=== PATIENT | male | born 1940 | race Caucasian/White ===

== ENCOUNTER → 2020-08-09 09:59 | Outpatient (CLI) | payer OTHER, SELFPAY ==
[2020-08-09 11:02] LABS: COVID19 -Nasal RAPID Negative (Negative)
== END ==
PROVIDERS: Referring Provider Internal Medicine; Visit Provider Internal Medicine
DX: Z20.822 Contact with and (suspected) exposure to COVID-19 (principal)
CPT/HCPCS: 87635; C9803

== ENCOUNTER → 2020-08-10 12:48 | Outpatient (CLI) | payer OTHER, SELFPAY ==
--- NOTE | 2020-08-18 11:47 | PM.PFT.1 ---
Pulmonary Function Test Referral & Results Date Patient Seen: 08/10/20 Requesting provider: Mansoor Flowers Results: The spirometry demonstrates an FVC of 4.05 L which is 93% of predicted. The FEV1 was measured at 3.07 L which is 99% of predicted. The FEV1/FVC ratio was 76 which is 106% of predicted. No bronchodilator was administered No lung volumes were performed The diffusing capacity was measured at 23.81 which is 67% of predicted. No hemoglobin value was provided, so no correction for potential anemia could be made, if appropriate. Interpretation: This study demonstrates normal spirometry but mildly reduced diffusing capacity suggesting amount of disease of the capillary alveolar level Clinical correlation suggested
== END ==
PROVIDERS: PCP Internal Medicine; Referring Provider Internal Medicine Cardiovascular Disease; Visit Provider Internal Medicine Cardiovascular Disease
DX: I48.21 Permanent atrial fibrillation (principal); I42.8 Other cardiomyopathies; Z51.81 Encounter for therapeutic drug level monitoring; Z79.899 Other long term (current) drug therapy
CPT/HCPCS: 94010

== ENCOUNTER 2020-12-06 18:18 | Emergency (ER) | payer OTHER, SELFPAY ==
[2020-12-06 18:14] VITALS: BP 134/81; PULSE 67; RESP 14; TEMP 36.7; O2SAT 99; BMI 24.5
--- NOTE | 2020-12-06 18:25 | ED.FALL ---
HPI - Fall General Chief Complaint: Fall Stated Complaint: GLF Time Seen by Provider: 12/06/20 18:19 Source: patient Mode of arrival: EMS Limitations: no limitations History of Present Illness HPI Narrative: Patient is an 80-year-old male who was brought in by EMS for evaluation of injuries that he sustained after tripping over his cane while on the sidewalk in falling forward and hitting his head. There was no loss of consciousness. He is on Coumadin. Patient states that bystanders would not allow him to get up and try to walk afterwards. You arrive not on a backboard on a cervical collar but is not complaining of any neck pain. He also states he sustained abrasions to his right knee. Related Data Allergies Allergy/AdvReac Type Severity Reaction Status Date / Time No Known Drug Allergies Allergy Verified 12/06/20 18:19 Review of Systems Constitutional Constitutional: Denies headache(s) Eyes Eyes: Denies change in vision ENT Ears, Nose, Mouth, and Throat: Denies vertigo, Denies dizziness and Denies headache(s) Comments: No dental pain, no nose bleed Cardiovascular Cardiovascular: Reports system reviewed and no additional complaints, except as documented and Denies chest pain Respiratory Respiratory: Reports system reviewed and no additional complaints, except as documented Gastrointestinal Gastrointestinal: Reports system reviewed and no additional complaints, except as documented Musculoskeletal Comments: Abrasions to the right knee otherwise no other musculoskeletal complaints Integumentary/Breasts Comments: Abrasions to his face in the right knee Neurologic Neurologic: Denies confusion, Denies vertigo, Denies dizziness and Denies headache(s) Psychiatric Psychiatric: Reports system reviewed and no additional complaints, except as documented and Denies confusion Hematologic/Lymphatic On Anticoagulants: Yes Allergic/Immunologic Allergic/Immunologic: Reports system reviewed and no additional complaints, except as documented Patient History Medical History Anticoagulated Social History Smoking Status: Unknown if ever smoked Smoking Status: Unknown if ever smoked alcohol intake frequency: holidays/special occasions only Substance Use Type: does not use Exam Initial Vital Signs Initial Vital Signs: Vital Signs Temperature 98.1 F 12/06/20 18:14 Pulse Rate 67 12/06/20 18:14 Respiratory Rate 14 12/06/20 18:14 Blood Pressure 134/81 12/06/20 18:14 Pulse Oximetry 99 12/06/20 18:14 Const General: cooperative, comfortable, well developed and well groomed Limitations: mental status not altered HENMT Head: abrasion (2 forehead and over bridge of nose) Ears: hearing grossly normal bilaterally Nose: septum normal, No epistaxis and No nasal discharge Face and sinus: other (Abrasion over bridge of nose) Mouth: oral mucosae normal and tongue normal Teeth and gingiva: dentition normal Eyes General: appearance normal, both eyes and all related structures Chest Chest: No tenderness Resp Effort & Inspection: normal respiratory effort Auscultation: clear to auscultation bilaterally Cardio Rate: regular rate Rhythm: regular rhythm GI Inspection: non-distended Palpation: soft, No firm and No tender Back/Spine/Pelvis Cervical Spine: No collar present and No cervical spinal tenderness Thoracic/Lumbar Spine: No thoracic spinal tenderness and No lumbar spinal tenderness Skin Other: Patient with a superficial 2 cm abrasion over the right patella. Patient also has an abrasion over his forehead, above his eyes and over the bridge of his nose. There is no active bleeding. Neuro General: patient alert, patient awake and patient oriented x3 Cognition: normal cognition Speech: speech normal Extrem General: normal to inspection, capillary refill normal and No edema Psych Appearance: grossly normal and well kempt Procedures Laceration Repair Laceration 1: Site: other (Does) Size (cm): 2 Description: linear Depth: simple, single layer Local Anesthetic: lidocaine 1% and with bicarb Amount of anesthesia used (mL): 2 Pre-repair: wound explored and deep structures intact Skin layer closed with: other (Chromic) Size (cm): 5-0 Number of sutures: 4 Technique: simple, interrupted Scores GCS Waterman coma scale eye opening: Spontaneous Romeo coma scale verbal response: Orientated Romeo coma scale motor response: Obey commands Waterman coma scale total score: 15 Nexus Score for C-Spine Focal Neurologic deficit present: No Midline spinal tenderness present: No Altered level of conciousness present: No Intoxication present: No Distracting Injury Present: No Nexus Criteria for C-spine: 0 Course Orders Ordered: ED Orders 12/06/20 18:24 CT facial bones wo con Stat CT head/brain wo con Stat Discontinued Medications Bacitracin (Bacitracin Oint 0.9 Gm Pckt) 2 applic TOP NOW ONE Stop: 12/06/20 19:15 Lidocaine/Sodium Bicarbonate (Lido 1%/Sod Bicarb 8.4% (10ml) 10 Ml Syringe) 10 ml INJ NOW ONE Stop: 12/06/20 19:05 Last Admin: 12/06/20 19:09 Dose: 10 ml Documented by: Vital Signs Vital signs: Vital Signs - 8 hr 12/06/20 18:14 Temperature 98.1 F Pulse Rate 67 Respiratory Rate 14 Blood Pressure 134/81 Pulse Oximetry 99 MDM - Fall Imaging Data CT scan - head: Radiologist's Impression: [address] [id number] Scan ReportSigned Patient: Shane Beal CMR#: [id number]: 9Acct:[id number]/Sex: 80 / MDate of Service: 12/06/20Loc: EDAccession Number: [id number] Procedure: CT head/brain wo con Ordering Provider: Pola Allison D.O. PROCEDURE: CT HEAD/BRAIN WO CON INDICATIONS: fall on Coumadin TECHNIQUE: Noncontrast 4.5 mm thick angled axial sections acquired from the foramen magnum to the vertex, with coronal and sagittal reformats. For radiation dose reduction, the following was used: automated exposure control, adjustment of mA and/or kV according to patient size. COMPARISON: None. FINDINGS: Image quality: Excellent. CSF spaces: Basal cisterns are patent. No extra-axial fluid collections. The ventricles are symmetric in size and shape. Brain: No intracranial bleeds or masses. There is cerebral volume loss for age, with resultant ventricular and sulcal prominence. There are periventricular and deep white matter chronic small vessel ischemic changes. There is intracranial internal carotid artery atherosclerosis. Skull and face: Calvarium and visualized facial bones appear intact, without suspicious lesions. Sinuses: Visualized sinuses and mastoids are clear. IMPRESSION: Atrophy and chronic ischemic change without acute hemorrhage or mass effect. Dictated by: Stuart Muñoz M.D. on 12/06/2020 at 17:42 Approved by: Stuart Muñoz M.D. on 12/06/2020 at 17:44 CT face: Radiologist's Impression: [address] [id number] Scan ReportSigned Patient: Shane Beal CMR#: [id number]: 9Acct:[id number]/Sex: 80 / MDate of Service: 12/06/20Loc: EDAccession Number: [id number] Procedure: CT facial bones wo con Ordering Provider: Pola Allison D.O. PROCEDURE: CT FACIAL BONES WO CON INDICATIONS: Fall on Coumadin with abrasions over nose TECHNIQUE: Noncontrast 2.5 mm thick axial images acquired from the mandible through the frontal sinuses, with coronal and sagittal reformatting. For radiation dose reduction, the following was used: automated exposure control, adjustment of mA and/or kV according to patient size. COMPARISON: None. FINDINGS: Image quality: Excellent. Bones and teeth: Minimal angulation of the nasal bone could reflect nondisplaced fracture. Overlying soft tissue swelling noted. Orbital ann are intact. Sinus ann show no fracture or deformity. Nasal bones and septum are intact. Visualized portions of the mandible demonstrate no fractures or subluxation. Zygomatic arches are intact. Pterygoid plates are intact. Visualized portions of the skull base and auditory canals are intact. Sinuses: Paranasal sinuses are aerated, without fluid levels, mucosal thickening, or mucoceles. Mastoid air cells are aerated. Small 5 mm right maxillary sinus retention cysts noted. Soft tissues: No edema, masses, or fluid collections. No enlarged lymph nodes. No soft tissue lacerations or debris. And multifocal dermal calcifications over the chin could reflect foreign bodies Vascular: Visualized vascular structures appear normal in the absence of contrast. Bony vascular foramina and canals are intact. IMPRESSION: 1. Minimal angulation of the knees above could reflect nondisplaced fracture 2. Dermal calcifications over the chin. Correlate for foreign bodies Dictated by: Stuart Muñoz M.D. on 12/06/2020 at 17:46 Approved by: Stuart Muñoz M.D. on 12/06/2020 at 17:53 MDM Narrative Medical decision making narrative: Has did appear to be a mechanical fall. His neck was cleared by nexus criteria. He was alert oriented x3 and had a GCS of 15 and not clinically intoxicated. The superficial abrasion over his knee needs no intervention. The abrasions on his forehead knee no intervention. After cleaning of the wounds there was a small laceration over the bridge of his nose which was closed as described above. His head CT was unremarkable. Facial CT does have some concern about a nasal fracture. I did discuss this with the patient. He was given care instructions and return precautions. He expressed understanding and agreement. Discharge Plan Departure Patient Disposition: Home Clinical Impression: Abrasion of forehead, Laceration of nose, Abrasion of knee, right Instructions: How to Prevent Falls, DI for Abrasion Activity Restrictions/Additional Instructions: The stitches that were placed today will come out on their own. You can place topical antibiotic ointment over the abrasions. You have no restrictions on your activities. Contact your primary provider for follow-up. Return to the emergency department for any new or worsening symptoms. Referrals: Lindsay Chavarria MD [Primary Care Provider] -
--- NOTE | 2020-12-06 18:49 | PC.NURSE ---
Wound cleansed with normal saline. Pt reports no pain. Bleeding controled. Laceration to bridge of the nose and abrasion to forehead.
[2020-12-06] MEDS: LIDO 1%/SOD BICARB 8.4% (10ML) 10 ML SYRINGE INJ (19:09)
[2020-12-06] MEDS: BACITRACIN OINT 0.9 GM PCKT 2 APPLIC TOP (19:23)
[2020-12-06 19:35] VITALS: BP 108/65; PULSE 61; RESP 16; TEMP 36.5; O2SAT 100
== END 2020-12-06 19:36 | disposition home or self-care (01) ==
PROVIDERS: Emergency Provider Emergency Medicine; PCP Internal Medicine
DX: S01.21XA Laceration without foreign body of nose, initial encounter (principal); S80.211A Abrasion, right knee, initial encounter; S00.81XA Abrasion of other part of head, initial encounter; W19.XXXA Unspecified fall, initial encounter; Z79.01 Long term (current) use of anticoagulants
CPT/HCPCS: 12011; 70450; 70486; 99284

== ENCOUNTER → 2021-05-21 15:13 | Outpatient (CLI) | payer OTHER, SELFPAY ==
[2021-05-21 15:58] LABS: INR 12.6 (0.9-1.3)
== END ==
PROVIDERS: PCP Internal Medicine; Referring Provider Internal Medicine; Visit Provider Internal Medicine
DX: I48.19 Other persistent atrial fibrillation (principal)
CPT/HCPCS: 36415; 85610

== ENCOUNTER 2021-05-21 18:29 | Emergency (ER) | payer OTHER, SELFPAY ==
[2021-05-21 18:41] VITALS: BP 105/68; PULSE 68; RESP 16; TEMP 36.9; O2SAT 98; BMI 24.3
[2021-05-21 19:17] LABS: Add Manual Diff / Slide Review NO; Basophils Absolute Auto 100 /uL (0-100); Basophils Percent Auto 1.7 % (0-2); Eosinophils Absolute Auto 100 /uL (0-450); Eosinophils Percent Auto 1.1 % (2-4); Hematocrit 42.3 % (41-53); Hemoglobin 14.4 g/dL (13.5-17.5); Lymphocytes Absolute Auto 1500 /uL (1100-4500); Lymphocytes Percent Auto 27.2 % (25-40); Mean Corpuscular Hemoglobin 31.9 PG (26-34); Mean Corpuscular Volume 93.9 fL (80-100); Monocytes Absolute Auto 600 /uL (0-900); Neutrophils Absolute Auto 3400 /uL (1500-7000); Platelet Count 167 X10^3/uL (150-400); Red Cell Distribution Width 14.5 % (11.6-14.8); White Blood Cell Count 5.6 X10^3/uL (4.5-11.0)
[2021-05-21 19:22] LABS: Prothrombin Time 145.7 SECONDS (10.1-12.7)
[2021-05-21 19:25] LABS: Alanine Aminotransferase 124 IU/L (<50); Albumin 4.5 g/dL (3.5-5.0); Albumin Globulin Ratio 1.4 (1.0-2.8); Alkaline Phosphatase 60 U/L (38-126); Aspartate Aminotransferase 83 IU/L (17-59); BUN Creatinine Ratio 24.1 (6-22); Bilirubin Total 0.8 mg/dL (0.2-1.3); Blood Urea Nitrogen 27 mg/dL (9-20); Calcium 10.1 mg/dL (8.4-10.2); Carbon Dioxide 28 mmol/L (22-32); Chloride 98 mmol/L (98-107); Estimated Glomerular Filt Rate > 60.0 mL/min (>60); Globulin 3.3 g/dL (1.7-4.1); Glucose 88 mg/dL (80-110); HEMOLYSIS 26 (0-50); Potassium 4.3 mmol/L (3.4-5.1); Sodium 137 mmol/L (137-145); Total Protein 7.8 g/dL (6.3-8.2)
[2021-05-21 19:30] VITALS: BP 99/30; PULSE 60; RESP 17; O2SAT 99
--- NOTE | 2021-05-21 19:33 | ED_ITS ---
HPI - Recheck/Abnormal Lab/Rx General Chief Complaint: Recheck/Abnormal Lab/Rx Stated Complaint: states INR is too high Time Seen by Provider: 05/21/21 19:30 Source: patient and family Mode of arrival: Ambulatory History of Present Illness HPI narrative: Patient is an 80-year-old male history of atrial fibrillation, coronary artery disease, diabetes presenting today with elevated INR. Apparently as an outpatient it was 12. He is noted to be hypotensive here with blood pressure low 100s he states that his blood pressure is normally in the low 100s and systolic 90s. He denies any dizziness lightheadedness. He has chest pain shortness of breath he has not passed out he has no black tarry stools or rectal bleeding. Overall feels well most concerned for elevated INR. 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 Related Data Home Medications Medication Instructions Recorded Confirmed amiodarone 200 mg tablet mg 05/21/21 atorvastatin 40 mg tablet mg 05/21/21 bumetanide 1 mg tablet mg 05/21/21 empagliflozin 25 mg tablet mg 05/21/21 (Jardiance) finasteride 5 mg tablet mg 05/21/21 latanoprost 0.005 % eye drops drp 05/21/21 metformin 500 mg tablet,extended mg PO 05/21/21 release 24 hr spironolactone 25 mg tablet mg 05/21/21 tamsulosin 0.4 mg capsule mg PO 05/21/21 warfarin 5 mg tablet See Rx Instructions .ROUTE .COMPLEX 05/21/21 05/21/21 warfarin 5 mg tablet mg 05/21/21 Allergies Allergy/AdvReac Type Severity Reaction Status Date / Time No Known Drug Allergies Allergy Verified 05/21/21 18:44 Review of Systems Review of Systems Narrative: GENERAL: Denies chills, fatigue, malaise, fever, sweats, travel HEENT: Denies sinus pain, ear pain, sore throat, difficulty swallowing, neck pain RESPIRATORY: Denies dyspnea, cough, wheezing, hemoptysis, sputum. CARDIOVASCULAR: Denies chest pain, palpitations, orthopnea, edema GASTROINTESTINAL: Denies nausea, vomiting, abdominal pain, diarrhea, co nstipation, melena. : Denies dysuria, frequency, incontinence, hematuria, urinary retention, flank pain. MUSCULOSKELETAL: Denies weakness, joint pain, or bony pain SKIN: No rash, no erythema, no pruritus NEUROLOGIC: Denies weakness, dizziness, headache, numbness, change in speech, confusion PSYCHIATRIC: No concerning psychosocial issues. 12 point review of systems is negative except for those stated above and HPI Patient History Medical History (Updated 05/21/21 @ 20:51 by Ana Grewal DO) Anticoagulated Atrial fibrillation Coronary artery disease Social History Smoking Status: Unknown if ever smoked Smoking Status: Unknown if ever smoked alcohol intake frequency: holidays/special occasions only Substance Use Type: does not use Exam Initial Vital Signs Initial Vital Signs: Vital Signs Temperature 98.4 F 05/21/21 18:41 Pulse Rate 68 05/21/21 18:41 Respiratory Rate 16 05/21/21 18:41 Blood Pressure 105/68 05/21/21 18:41 Pulse Oximetry 98 05/21/21 18:41 GENERAL: Alert well-appearing 80-year-old maleand in no acute distress. HEENT: Head atraumatic,EOMI, pupils reactive, face symmetric, moist mucous membranes CARDIOVASCULAR: Irregular pacemaker placed RESPIRATORY: Breath sounds equal bilaterally, no wheezes rales or rhonchi. ABDOMEN: Soft, nontender. Normoactive bowel sounds all 4 quadrants. No guarding or rebound. EXTREMITIES: Normal range of motion, no clubbing or edema. Neurovascularly intact NEUROLOGICAL: Alert and oriented x4.Normal gait and speech. SKIN: Warm, dry, no laceration, no petechiae, no rashes or lesions. Course Orders Ordered: Discontinued Medications Phytonadione (Phytonadione (Vit K1) 5 Mg Tablet) 5 mg PO NOW ONE Stop: 05/21/21 19:31 Last Admin: 05/21/21 19:58 Dose: 5 mg Documented by: LIZA Vital Signs Vital signs: Vital Signs - 8 hr 05/21/21 20:38 Pulse Rate 69 Respiratory Rate 16 Blood Pressure 108/77 Pulse Oximetry 98 MDM - Recheck/Abnormal Lab/Rx Lab Data Result diagrams: 05/21/21 18:50 05/21/21 18:50 Labs: Lab Results 05/21/21 05/21/21 05/21/21 Range/Units 18:50 18:50 18:50 WBC 5.6 (4.5-11.0) X10^3/uL RBC 4.50 (4.5-5.9) X10^6/uL Hgb 14.4 (13.5-17.5) g/dL Hct 42.3 (41-53) % MCV 93.9 (80-100) fL MCH 31.9 (26-34) PG MCHC 34.0 (30-36) % RDW 14.5 (11.6-14.8) % Plt Count 167 (150-400) X10^3/uL Neut % (Auto) 60.0 (50-75) % Lymph % (Auto) 27.2 (25-40) % Surry % (Auto) 10.0 (3-14) % Eos % (Auto) 1.1 L (2-4) % Baso % (Auto) 1.7 (0-2) % Neut # (Auto) 3400 (5127-3652) /uL Lymph # (Auto) 1500 (7079-9766) /uL Surry # (Auto) 600 (0-900) /uL Eos # (Auto) 100 (0-450) /uL Baso # (Auto) 100 (0-100) /uL PT 145.7 H D (10.1-12.7) SECONDS INR 12.2 H* (0.9-1.3) APTT 67 H (26.4-36.2) SECONDS Sodium 137 (137-145) mmol/L Potassium 4.3 (3.4-5.1) mmol/L Chloride 98 (98-107) mmol/L Carbon Dioxide 28 (22-32) mmol/L BUN 27 H (9-20) mg/dL Creatinine 1.12 (0.66-1.25) mg/dL Estimated GFR > 60.0 (>60) mL/min BUN/Creatinine Ratio 24.1 H (6-22) Glucose 88 (80-110) mg/dL Calcium 10.1 (8.4-10.2) mg/dL Total Bilirubin 0.8 (0.2-1.3) mg/dL AST 83 H (17-59) IU/L ALT 124 H (<50) IU/L Alkaline Phosphatase 60 (38-126) U/L Total Protein 7.8 (6.3-8.2) g/dL Albumin 4.5 (3.5-5.0) g/dL Globulin 3.3 (1.7-4.1) g/dL Albumin/Globulin Ratio 1.4 (1.0-2.8) ECG Data Interpretation: Atrial fibrillation rate [address] changes paced, no priors MDM Narrative Medical decision making narrative: Patient is found to have significantly elevated INR but no life-threatening bleeding.Blood pressure seems to be at his baseline. He has no palpitations dizziness lightheadedness or presyncopal episodes. At this time I do not see need for his pacemaker to be interrogated. He overall is at his baseline mental status. At this time recommend holding Coumadin he is given 1 dose of vitamin K in the emergency department. Recommend repeating INR in a few days. Discharge Plan Departure Patient Disposition: Home Clinical Impression: Elevated INR Instructions: DI for Warfarin Therapy Activity Restrictions/Additional Instructions: *You have been diagnosed with elevated INR *What to do: DO NOT TAKE COUMADIN FOR AT LEAST 3 DAYS. HE NEED TO HAVE HER INR RECHECKED. HE WERE GIVEN VITAMIN K 5 MG IN THE EMERGENCY DEPARTMENT TODAY. Please take precautions as to not cut herself or injure yourself well your INR is quite elevated. Avoid ladders and shaving and other activities that may be considered high risk *Continue to take medications as directed SEE ABOVE *Follow up with your primary care provider in 2-3 days *Return to ER if you should have any rectal bleeding, head injury, bleeding that does not stop after pressure for 45 minutes, or any new, worsening or concerning symptoms Prescriptions: No Action warfarin 5 mg tablet See Rx Instructions .ROUTE .COMPLEX 0RF Label Comments: 5mg on mon, tue, th, fri, and sat 2.5mg on sun and wed Rx Instructions: 5mg on mon, tue, thurs, fri, and sat 2.5mg on sun and wed latanoprost 0.005 % drops 0RF atorvastatin 40 mg tablet 0RF amiodarone 200 mg tablet 0RF spironolactone 25 mg tablet 0RF tamsulosin 0.4 mg capsule PO 0RF warfarin 5 mg tablet 0RF bumetanide 1 mg tablet 0RF metformin 500 mg tablet extended release 24 hr PO 0RF finasteride 5 mg tablet 0RF Jardiance 25 mg tablet 0RF Referrals: Lindsay Chavarria MD [Primary Care Provider] -
[2021-05-21] MEDS: PHYTONADIONE (VIT K1) 5 MG TABLET PO (19:58)
[2021-05-21 20:38] VITALS: BP 108/77; PULSE 69; RESP 16; O2SAT 98
[2021-05-22 09:23] LABS: INR 12.2 (0.9-1.3); PTT Partial Thromboplastin Tim 67 SECONDS (26.4-36.2)
== END 2021-05-21 20:59 | disposition home or self-care (01) ==
PROVIDERS: Emergency Provider Emergency Medicine; PCP Internal Medicine
DX: R79.1 Abnormal coagulation profile (principal); I95.9 Hypotension, unspecified; I48.19 Other persistent atrial fibrillation
CPT/HCPCS: 36415; 80053; 85025; 85610; 85730; 93005; 99283

== ENCOUNTER → 2021-05-22 16:22 | Outpatient (CLI) | payer OTHER, SELFPAY ==
[2021-05-22 18:52] LABS: INR 5.8 (0.9-1.3)
== END ==
PROVIDERS: PCP Internal Medicine; Referring Provider Internal Medicine; Visit Provider Internal Medicine
DX: I48.19 Other persistent atrial fibrillation (principal)
CPT/HCPCS: 36415; 85610

== ENCOUNTER → 2021-05-27 11:58 | Outpatient (ROUT) | payer OTHER, SELFPAY ==
[2021-05-27 13:01] LABS: INR 1.8 (0.9-1.3); Prothrombin Time 20.3 SECONDS (10.1-12.7)
== END ==
PROVIDERS: PCP Internal Medicine; Visit Provider Internal Medicine
DX: D68.69 Other thrombophilia (principal); I48.91 Unspecified atrial fibrillation
CPT/HCPCS: 85610

== ENCOUNTER → 2021-06-11 15:32 | Outpatient (CLI) | payer OTHER, SELFPAY ==
[2021-06-11 16:23] LABS: COVID19 -Nasal RAPID Negative (Negative)
== END ==
PROVIDERS: PCP Internal Medicine; Referring Provider Internal Medicine; Visit Provider Internal Medicine
DX: Z20.822 Contact with and (suspected) exposure to COVID-19 (principal)
CPT/HCPCS: 87635; C9803

== ENCOUNTER → 2021-06-12 10:34 | Outpatient (CLI) | payer OTHER, SELFPAY ==
--- NOTE | 2021-06-19 09:46 | PM.PFT.1 ---
Pulmonary Function Test Referral & Results Date Patient Seen: 06/12/21 Requesting provider: Mansoor Flowers Results: The spirometry demonstrates an FVC of 3.67 L which is 86% of predicted. The FEV1 was measured at 2.73 L which is 90% of predicted. The FEV1/FVC ratio was 75 which is 104% of predicted. Lung volumes show an SVC of 4.16 L which is 89% of predicted. The diffusing capacity was measured at 25.63 which is 73% of predicted. No hemoglobin value was provided, so no correction for potential anemia could be made, if appropriate. The maximum voluntary ventilation was reduced Interpretation: This study demonstrates probably normal spirometry but there is a mild reduction diffusing capacity suggesting disease at the capillary alveolar level Compared to PFTs performed in July 2020 spirometry is essentially unchanged in diffusing capacity if anything is slightly improved (although probably truly unchanged)
== END ==
PROVIDERS: PCP Internal Medicine; Referring Provider Internal Medicine Cardiovascular Disease; Visit Provider Internal Medicine Cardiovascular Disease
DX: I48.19 Other persistent atrial fibrillation (principal); Z79.899 Other long term (current) drug therapy; Z91.89 Other specified personal risk factors, not elsewhere classified
CPT/HCPCS: 94010; 94726; 94729

== ENCOUNTER → 2022-04-01 12:05 | Outpatient (CLI) | payer OTHER, SELFPAY ==
[2022-04-02 17:08] LABS: Alpha-1-Globulin 0.2 g/dL (0.0-0.4); Alpha-2-Globulin 0.7 g/dL (0.4-1.0); Gamma Globulin 1.3 g/dL (0.4-1.8); Globulin Total 3.3 g/dL (2.2-3.9); Protein, Total 7.3 g/dL (6.0-8.5)
[2022-04-02 17:48] LABS: Free Kappa Lt Chains, Serum 38.5 mg/L (3.3-19.4); Free Lambda Lt Chains,Serum 34.9 mg/L (5.7-26.3)
[2022-04-03 11:18] LABS: Alpha-1 Globulin, Ur 5.4 % (.); Beta Globulin, Ur 14.4 % (.); Gamma Globulin, Ur 9.2 % (.); M-Spike % Not Observed % (Not Observed); Urine Total Protein 6.2 mg/dL (Not Estab.)
== END ==
PROVIDERS: PCP Internal Medicine; Referring Provider Internal Medicine Cardiovascular Disease; Visit Provider Internal Medicine Cardiovascular Disease
DX: I42.8 Other cardiomyopathies (principal)
CPT/HCPCS: 36415; 83883; 84155; 84156; 84165; 84166

== ENCOUNTER 2022-04-15 13:01 | Emergency (ER) | payer OTHER, SELFPAY ==
[2022-04-15] VITALS (13 sets, daily range): BP systolic 78–110; BP diastolic 54–81; PULSE 56–102; RESP 7–23; TEMP 37.2; O2SAT 96–100; BMI 23.8
--- NOTE | 2022-04-15 13:44 | DI.RAD.S_ITS ---
PROCEDURE: XR CHEST 1V INDICATIONS: suspected sepsis TECHNIQUE: One view of the chest was acquired. COMPARISON: None. FINDINGS: Surgical changes and devices: Left-sided cardiac pacer. Lungs and pleura: Lungs are clear. No pleural effusions or pneumothorax. Mediastinum: Mediastinal contours appear normal. Heart is enlarged. Bones and chest wall: No suspicious bony lesions. Overlying soft tissues appear unremarkable. IMPRESSION: No acute cardiopulmonary disease process. Dictated by: Sophie Bhatt MD, PhD on 04/15/2022 at 14:00 Approved by: Sophie Bhatt MD, PhD on 04/15/2022 at 14:00
[2022-04-15 13:55] LABS: Add Manual Diff / Slide Review NO; Basophils Absolute Auto 0 /uL (0-100); Basophils Percent Auto 0.5 % (0-2); Eosinophils Absolute Auto 100 /uL (0-450); Eosinophils Percent Auto 0.8 % (2-4); Hematocrit 40.9 % (41-53); Lymphocytes Absolute Auto 1400 /uL (1100-4500); Lymphocytes Percent Auto 16.8 % (25-40); Mean Corpuscular HGB Conc 34.2 % (30-36); Mean Corpuscular Hemoglobin 33.3 PG (26-34); Mean Corpuscular Volume 97.4 fL (80-100); Monocytes Absolute Auto 700 /uL (0-900); Monocytes Percent Auto 8.5 % (3-14); Neutrophils Absolute Auto 5900 /uL (1500-7000); Neutrophils Percent Auto 73.4 % (50-75); Platelet Count 170 X10^3/uL (150-400); Red Cell Distribution Width 14.4 % (11.6-14.8); White Blood Cell Count 8.1 X10^3/uL (4.5-11.0)
[2022-04-15 14:08] LABS: Alanine Aminotransferase 70 IU/L (<50); Albumin Globulin Ratio 1.1 (1.0-2.8); Alkaline Phosphatase 63 U/L (38-126); Aspartate Aminotransferase 69 IU/L (17-59); BUN Creatinine Ratio 23.1 (6-22); Bilirubin Total 1.4 mg/dL (0.2-1.3); Blood Urea Nitrogen 28 mg/dL (9-20); Calcium 9.4 mg/dL (8.4-10.2); Carbon Dioxide 29 mmol/L (22-32); Chloride 92 mmol/L (98-107); Estimated Glomerular Filt Rate 59 mL/min (>60); Globulin 3.6 g/dL (1.7-4.1); Glucose 175 mg/dL (80-110); HEMOLYSIS 30 (0-50); Lipase 391 U/L (23-300); Potassium 4.2 mmol/L (3.4-5.1); Sodium 136 mmol/L (137-145); Total Protein 7.6 g/dL (6.3-8.2)
[2022-04-15 14:09] LABS: Lactate (Lactic Acid) 2.6 mmol/L (0.7-2.1)
[2022-04-15 14:24] LABS: Procalcitonin 0.07 ng/mL (<0.5)
[2022-04-15] MEDS: SODIUM CHLORIDE 0.9% 1,000 ML 1000 ML IV (14:30)
--- NOTE | 2022-04-15 14:41 | ED_ITS ---
HPI - Male Genitourinary General Chief complaint: Urogenital-Male Stated complaint: blood in urine sent by DRBernarda Time Seen by Provider: 04/15/22 14:37 Source: patient Mode of arrival: Ambulatory History of Present Illness HPI Narrative: Mr. Beal is an 81-year-old gentleman with hematuria. He is never had hematuria previously and he only noticed a little bit of blood in the toilet this morning upon voiding normally. Noticed a little bit of discomfort in the penis and urethra with voiding but otherwise has no discomfort at all. Noticed blood a couple of more times this morning and then it seemed to clear up he noticed it again when he was voiding for the urine specimen here. Has no other symptoms. No chills or fever. No flank pain, no abdominal pain, no nausea or vomiting or bowel symptoms. He feels completely well other than the blood in his urine. Never had hematuria previously unaware of any kidney stone history. Does have a history of atrial fibrillation for which he takes warfarin Related Data Home Medications Medication Instructions Recorded Confirmed amiodarone 200 mg tablet mg 05/21/21 atorvastatin 40 mg tablet mg 05/21/21 bumetanide 1 mg tablet mg 05/21/21 empagliflozin 25 mg tablet mg 05/21/21 (Jardiance) finasteride 5 mg tablet mg 05/21/21 latanoprost 0.005 % eye drops drp 05/21/21 metformin 500 mg tablet,extended mg PO 05/21/21 release 24 hr spironolactone 25 mg tablet mg 05/21/21 tamsulosin 0.4 mg capsule mg PO 05/21/21 warfarin 5 mg tablet See Rx Instructions .Route .COMPLEX 05/21/21 05/21/21 warfarin 5 mg tablet mg 05/21/21 Allergies Allergy/AdvReac Type Severity Reaction Status Date / Time No Known Drug Allergies Allergy Verified 05/21/21 18:44 Review of Systems Review of Systems Narrative: Complete review of systems is negative other than as noted above. Patient History Medical History (Updated 04/15/22 @ 17:10 by Fred Cha MD) Anticoagulated Atrial fibrillation Coronary artery disease Social History Smoking Status: Unknown if ever smoked Smoking Status: Unknown if ever smoked alcohol intake frequency: holidays/special occasions only Substance Use Type: does not use Exam Narrative Exam Narrative: GENERAL: Alert, cooperative and in no distress. HEAD: Atraumatic. Normocephalic. EYES: Sclera are clear without icterus. Extraocular movements are full. ENT: No rhinorrhea. NECK: Supple. Full range of motion. CARDIOVASCULAR: Normal rate and rhythm without murmur gallop or rub. RESPIRATORY: Clear to auscultation. Breath sounds equal bilaterally. No wheezes, rales, or rhonchi. GASTROINTESTINAL: Abdomen soft, non-tender, nondistended. EXTREMITIES: No edema, full range of motion. No obvious trauma. BACK: Normal inspection, no CVA tenderness. NEURO: Nonfocal examination, normal speech, normal gait. SKIN: No rash or erythema of visible areas Genitourinary: Circumcised penis looks normal without blood at the meatus PSYCH: Normally oriented. Normal range of affect. Appropriate behavior Initial Vital Signs Initial Vital Signs: Vital Signs Temperature 99.0 F 04/15/22 13:25 Pulse Rate 102 H 04/15/22 13:25 Respiratory Rate 18 04/15/22 13:25 Blood Pressure 82/55 L 04/15/22 13:25 Pulse Oximetry 99 04/15/22 13:25 Oxygen Delivery Method 04/15/22 13:25 Course Orders Ordered: ED Orders 04/15/22 13:35 Complete Blood Count AUTO DIFF Stat Comprehensive Metabolic Panel Stat Lactate (Lactic Acid) Stat Lipase Stat Procalcitonin Stat 04/15/22 13:44 XR chest 1V Stat EKG-12 Lead Stat RT Consult Eval and Treat NOW 04/15/22 13:49 Urine Culture Stat Urine Microscopic Stat 04/15/22 14:16 Blood Culture Stat Prothrombin Time INR Stat Discontinued Medications Sodium Chloride (Normal Saline 0.9%) 1,000 mls @ 1,000 mls/hr IV BOLUS ONE Stop: 04/15/22 14:43 Last Infusion: 04/15/22 15:54 Dose: 0 mls/hr Documented By: Admin: 04/15/22 14:30 Dose: 1,000 mls/hr Documented By: NR Sodium Chloride (Normal Saline 0.9%) 1,000 mls @ 1,000 mls/hr IV BOLUS ONE Stop: 04/15/22 15:44 Vital Signs Vital signs: Vital Signs - 8 hr 04/15/22 13:25 04/15/22 13:55 04/15/22 14:00 Temperature 99.0 F Pulse Rate 102 H 56 L Pulse Rate [Orthostatic Lying] Pulse Rate [Orthostatic Sitting] Pulse Rate [Orthostatic Standing] Respiratory Rate 18 Blood Pressure 82/55 L 107/59 L Blood Pressure [Orthostatic Lying] Blood Pressure [Orthostatic Sitting] Blood Pressure [Orthostatic Standing] Pulse Oximetry 99 98 Oxygen Delivery Method Room Air 04/15/22 14:00 04/15/22 14:30 04/15/22 14:30 Temperature Pulse Rate 79 82 Pulse Rate [Orthostatic Lying] Pulse Rate [Orthostatic Sitting] Pulse Rate [Orthostatic Standing] Respiratory Rate Blood Pressure 91/54 L Blood Pressure [Orthostatic Lying] Blood Pressure [Orthostatic Sitting] Blood Pressure [Orthostatic Standing] Pulse Oximetry 98 96 Oxygen Delivery Method 04/15/22 16:25 04/15/22 15:00 04/15/22 15:00 Temperature Pulse Rate 88 70 Pulse Rate [Orthostatic Lying] Pulse Rate [Orthostatic Sitting] Pulse Rate [Orthostatic Standing] Respiratory Rate 23 Blood Pressure 88/71 L Blood Pressure [Orthostatic Lying] Blood Pressure [Orthostatic Sitting] Blood Pressure [Orthostatic Standing] Pulse Oximetry 97 96 Oxygen Delivery Method 04/15/22 15:30 04/15/22 15:30 04/15/22 16:00 Temperature Pulse Rate 70 Pulse Rate [Orthostatic Lying] Pulse Rate [Orthostatic Sitting] Pulse Rate [Orthostatic Standing] Respiratory Rate 23 Blood Pressure 93/59 L 106/64 Blood Pressure [Orthostatic Lying] Blood Pressure [Orthostatic Sitting] Blood Pressure [Orthostatic Standing] Pulse Oximetry 99 Oxygen Delivery Method 04/15/22 16:00 04/15/22 16:14 04/15/22 16:19 Temperature Pulse Rate 66 67 Pulse Rate [Orthostatic Lying] Pulse Rate [Orthostatic Sitting] Pulse Rate [Orthostatic Standing] Respiratory Rate 21 21 Blood Pressure 78/59 L Blood Pressure [Orthostatic Lying] Blood Pressure [Orthostatic Sitting] Blood Pressure [Orthostatic Standing] Pulse Oximetry 100 100 Oxygen Delivery Method 04/15/22 16:29 04/15/22 16:29 04/15/22 16:30 Temperature Pulse Rate 67 Pulse Rate [Orthostatic Lying] Pulse Rate [Orthostatic Sitting] Pulse Rate [Orthostatic Standing] Respiratory Rate 7 L Blood Pressure 110/77 105/74 Blood Pressure [Orthostatic Lying] Blood Pressure [Orthostatic Sitting] Blood Pressure [Orthostatic Standing] Pulse Oximetry 100 Oxygen Delivery Method 04/15/22 16:30 04/15/22 16:40 Temperature Pulse Rate 66 Pulse Rate [Orthostatic Lying] 76 Pulse Rate [Orthostatic Sitting] 67 Pulse Rate [Orthostatic Standing] 85 Respiratory Rate 11 L Blood Pressure Blood Pressure [Orthostatic Lying] 105/81 Blood Pressure [Orthostatic Sitting] 103/71 Blood Pressure [Orthostatic Standing] 93/55 L Pulse Oximetry 100 Oxygen Delivery Method MDM - Male Genitourinary Lab Data Result diagrams: 04/15/22 13:35 04/15/22 13:35 Labs: Lab Results 04/15/22 04/15/22 04/15/22 Range/Units 13:35 13:35 13:35 WBC 8.1 (4.5-11.0) X10^3/uL RBC 4.20 L (4.5-5.9) X10^6/uL Hgb 14.0 (13.5-17.5) g/dL Hct 40.9 L (41-53) % MCV 97.4 (80-100) fL MCH 33.3 (26-34) PG MCHC 34.2 (30-36) % RDW 14.4 (11.6-14.8) % Plt Count 170 (150-400) X10^3/uL Neut % (Auto) 73.4 (50-75) % Lymph % (Auto) 16.8 L (25-40) % [place] % (Auto) 8.5 (3-14) % Eos % (Auto) 0.8 L (2-4) % Baso % (Auto) 0.5 (0-2) % Neut # (Auto) 5900 (6253-7989) /uL Lymph # (Auto) 1400 (2970-1296) /uL [place] # (Auto) 700 (0-900) /uL Eos # (Auto) 100 (0-450) /uL Baso # (Auto) 0 (0-100) /uL PT (10.1-12.7) SECONDS INR (0.9-1.3) Sodium 136 L (137-145) mmol/L Potassium 4.2 (3.4-5.1) mmol/L Chloride 92 L (98-107) mmol/L Carbon Dioxide 29 (22-32) mmol/L BUN 28 H (9-20) mg/dL Creatinine 1.21 (0.66-1.25) mg/dL Estimated GFR 59 L (>60) mL/min BUN/Creatinine Ratio 23.1 H (6-22) Glucose 175 H (80-110) mg/dL Lactate 2.6 H (0.7-2.1) mmol/L Calcium 9.4 (8.4-10.2) mg/dL Total Bilirubin 1.4 H (0.2-1.3) mg/dL AST 69 H (17-59) IU/L ALT 70 H (<50) IU/L Alkaline Phosphatase 63 (38-126) U/L Total Protein 7.6 (6.3-8.2) g/dL Albumin 4.0 (3.5-5.0) g/dL Globulin 3.6 (1.7-4.1) g/dL Albumin/Globulin Ratio 1.1 (1.0-2.8) Lipase 391 H (23-300) U/L Procalcitonin 0.07 (<0.5) ng/mL Urine RBC (0-5/HPF) Urine WBC (0-5/HPF) Ur Squamous Epith Cells (0-5/HPF) Urine Bacteria (None) Ur Culture Indicated? 04/15/22 04/15/22 04/15/22 Range/Units 13:49 14:16 16:30 WBC (4.5-11.0) X10^3/uL RBC (4.5-5.9) X10^6/uL Hgb (13.5-17.5) g/dL Hct (41-53) % MCV (80-100) fL MCH (26-34) PG MCHC (30-36) % RDW (11.6-14.8) % Plt Count (150-400) X10^3/uL Neut % (Auto) (50-75) % Lymph % (Auto) (25-40) % [place] % (Auto) (3-14) % Eos % (Auto) (2-4) % Baso % (Auto) (0-2) % Neut # (Auto) (2645-5188) /uL Lymph # (Auto) (8768-8803) /uL [place] # (Auto) (0-900) /uL Eos # (Auto) (0-450) /uL Baso # (Auto) (0-100) /uL PT 38.9 H (10.1-12.7) SECONDS INR 3.3 H (0.9-1.3) Sodium (137-145) mmol/L Potassium (3.4-5.1) mmol/L Chloride (98-107) mmol/L Carbon Dioxide (22-32) mmol/L BUN (9-20) mg/dL Creatinine (0.66-1.25) mg/dL Estimated GFR (>60) mL/min BUN/Creatinine Ratio (6-22) Glucose (80-110) mg/dL Lactate 1.5 (0.7-2.1) mmol/L Calcium (8.4-10.2) mg/dL Total Bilirubin (0.2-1.3) mg/dL AST (17-59) IU/L ALT (<50) IU/L Alkaline Phosphatase (38-126) U/L Total Protein (6.3-8.2) g/dL Albumin (3.5-5.0) g/dL Globulin (1.7-4.1) g/dL Albumin/Globulin Ratio (1.0-2.8) Lipase (23-300) U/L Procalcitonin (<0.5) ng/mL Urine RBC 30-100/hpf H (0-5/HPF) Urine WBC None seen (0-5/HPF) Ur Squamous Epith Cells None seen (0-5/HPF) Urine Bacteria None seen (None) Ur Culture Indicated? Specimen cultured Urine Dip Bedside Urine Glucose 1000 mg/dl Bedside Urine Bilirubin - Negative Bedside Urine Ketone - Negative Urine Specific [place] 1.010 Bedside Urine Occult Blood +++ Bedside Urine pH 7.5 Bedside Urine Protein - Negative Bedside Urine Urobilinogen - Negative Bedside Urine Nitrite - Negative Bedside Urine Leukocytes +/- 15 Esterase ECG Data Interpretation: EKG from 1337 reveals atrial flutter at a rate of 89 beats per minute. Discharge Plan Departure Patient Disposition: Home Clinical Impression: Painless hematuria Activity Restrictions/Additional Instructions: You have blood in the urine but no evidence of infection. I recommend follow-up with Urology to discuss further evaluation as indicated. We kept her in the ER for a while because her blood pressure was low but I do not see any dangerous cause for this and you tell me that you feel normal. I think it is safe for you to go home now. No specific medication is required but you certainly need further evaluation for the blood in your urine. There are a couple of local urologists, who would be happy to see you. You should follow-up right away for increasing pain, fainting or lightheadedness or other new or worrisome symptoms. Prescriptions: No Action warfarin 5 mg tablet See Rx Instructions .ROUTE .COMPLEX Label Comments: 5mg on mon, tue, thurs, fri, and sat 2.5mg on sun and wed Rx Instructions: 5mg on mon, tue, thurs, fri, and sat 2.5mg on sun and wed latanoprost 0.005 % drops atorvastatin 40 mg tablet amiodarone 200 mg tablet spironolactone 25 mg tablet tamsulosin 0.4 mg capsule PO warfarin 5 mg tablet bumetanide 1 mg tablet metformin 500 mg tablet extended release 24 hr PO finasteride 5 mg tablet Jardiance 25 mg tablet Referrals: Lindsay Chavarria MD [Primary Care Provider] -
[2022-04-15 14:51] LABS: Bacteria Urine None Seen; Culture Indicated Urine Specimen Cultured; RBC Urine 30-100/HPF (0-5/HPF); Squamous Epithelial Cell Urine None Seen (0-5/HPF); WBC Urine None Seen (0-5/HPF)
[2022-04-15 14:57] LABS: INR 3.3 (0.9-1.3); Prothrombin Time 38.9 SECONDS (10.1-12.7)
[2022-04-15 15:48] LABS: Reflexed Lactate in 2 Hours Y
[2022-04-15 16:50] LABS: Lactate 2HR (Lactic Acid Rflx) 1.5 mmol/L (0.7-2.1)
== END 2022-04-15 17:32 | disposition home or self-care (01) ==
PROVIDERS: Emergency Provider Family Medicine Addiction Medicine; PCP Internal Medicine
DX: R31.9 Hematuria, unspecified (principal); I48.92 Unspecified atrial flutter; R03.1 Nonspecific low blood-pressure reading
CPT/HCPCS: 36415; 71045; 80053; 81003; 81015; 83605; 83690; 84145; 85025; 85610; 87040; 87086; 93005; 93010; 99284

== ENCOUNTER → 2022-05-06 13:24 | Outpatient (CLI) | payer OTHER, SELFPAY ==
[2022-05-06 15:33] LABS: INR 4.5 (0.9-1.3); Prothrombin Time 52.2 SECONDS (10.1-12.7)
== END ==
PROVIDERS: PCP Internal Medicine; Referring Provider Internal Medicine; Visit Provider Internal Medicine
DX: I48.19 Other persistent atrial fibrillation (principal); Z51.81 Encounter for therapeutic drug level monitoring
CPT/HCPCS: 36415; 85610

== ENCOUNTER → 2022-05-28 13:21 | Outpatient (CLI) | payer OTHER, SELFPAY ==
[2022-05-28 14:21] LABS: COVID19 -Nasal RAPID Negative (Negative)
== END ==
PROVIDERS: PCP Internal Medicine; Referring Provider Internal Medicine; Visit Provider Internal Medicine
DX: Z20.822 Contact with and (suspected) exposure to COVID-19 (principal)
CPT/HCPCS: 87635; C9803

== ENCOUNTER → 2022-05-28 13:22 | Outpatient (CLI) | payer OTHER, SELFPAY ==
--- NOTE | 2022-06-04 10:43 | PM.PFT.1 ---
Pulmonary Function Test Referral & Results Date Patient Seen: 05/28/22 Requesting provider: Mansoor Flowers Results: The spirometry demonstrates an FVC of 3.87 L which is 91% of predicted. The FEV1 was measured at 2.94 L which is 98% of predicted. The FEV1/FVC ratio was 76 which is 106% of predicted. Following the administration of bronchodilator there was a 14% improvement in FEF 25-75%. Lung volumes show an SVC of 3.98 L which is 86% of predicted. The diffusing capacity was measured at 22.35 which is 63% of predicted. No hemoglobin value was provided, so no correction for potential anemia could be made, if appropriate. The maximum voluntary ventilation was reduced Interpretation: This study demonstrates probably normal spirometry There is a moderate reduction in diffusing capacity suggesting disease at the capillary alveolar level There is also reduction in maximum voluntary ventilation which in the absence of any abnormalities of spirometry suggest the presence of neuromuscular disease. Compared to PFTs performed in May 2021, current study shows a small decline in diffusing capacity otherwise is essentially unchanged Clinical correlation suggested
== END ==
PROVIDERS: PCP Internal Medicine; Referring Provider Internal Medicine Cardiovascular Disease; Visit Provider Internal Medicine Cardiovascular Disease
DX: Z91.89 Other specified personal risk factors, not elsewhere classified (principal); Z79.899 Other long term (current) drug therapy; Z92.29 Personal history of other drug therapy; Z20.822 Contact with and (suspected) exposure to COVID-19; J98.8 Other specified respiratory disorders
CPT/HCPCS: 87635; 94060; 94726; 94729; C9803

== ENCOUNTER → 2022-08-27 12:33 | Outpatient (CLI) | payer OTHER, SELFPAY ==
--- NOTE | 2022-08-27 | DI.CT.S_ITS ---
PROCEDURE: CT CHEST WO CON INDICATIONS: Solitary pulmonary nodule TECHNIQUE: Noncontrast 5 mm thick sections acquired from the pulmonary apices to the posterior costophrenic angles. 1 mm lung window, 5 mm thick coronal and sagittal and 7 mm axial MIP reformats were then acquired. For radiation dose reduction, the following was used: automated exposure control, adjustment of mA and/or kV according to patient size. COMPARISON: [facility], CR, XR CHEST 1V, 04/15/2022, 13:44. [facility], CT, CT IVP, 05/07/2022, 9:50. FINDINGS: Image quality: Excellent. Lungs and pleura: No acute air space opacities. No pleural effusions or pneumothorax. Central and peripheral airways are patent and normal in caliber. Angulated 1.5 cm nodule noted in the right middle lobe with evidence of spiculation 2 mm nodule noted in the left lower lobe on image 3/202 Additional 2 mm subpleural nodule noted in the superior segment of the right lower lobe image 3/123 . Mediastinum: Heart size is enlarged. Dense coronary artery vascular calcification present. No pericardial effusion. No mediastinal adenopathy by size criteria. Thoracic aorta and central pulmonary arteries are normal in size. Esophagus is normal in caliber. No hiatal hernia. Bones and chest wall: No suspicious bony lesions. No vertebral body compression fractures. No axillary or supraclavicular adenopathy by size criteria. Thyroid gland unremarkable . Left-sided dual-chamber pacemaker/defibrillator Abdomen: Visualized upper abdominal solid organs and bowel loops appear normal in the absence of contrast. Cholelithiasis IMPRESSION: Right middle lobe spiculated nodule. Consider 3 month follow-up and/or PET-CT Grossly stable right renal lesions, partially visualized without contrast Approved by: Stuart Muñoz M.D. on 08/27/2022 at 14:30
== END ==
PROVIDERS: PCP Internal Medicine; Referring Provider Internal Medicine; Visit Provider Internal Medicine
DX: R91.1 Solitary pulmonary nodule (principal); N28.9 Disorder of kidney and ureter, unspecified
CPT/HCPCS: 71250

== ENCOUNTER 2022-12-03 20:56 | Emergency (ER) | payer OTHER, SELFPAY ==
[2022-12-03] VITALS (10 sets, daily range): BP systolic 83–96; BP diastolic 53–65; PULSE 67–97; RESP 14–43; TEMP 36.8; O2SAT 95–99; BMI 24.3
--- NOTE | 2022-12-03 21:10 | DI.RAD.S_ITS ---
PROCEDURE: XR CHEST 1V INDICATIONS: fall onto buttocks TECHNIQUE: One view of the chest was acquired. COMPARISON: [facility], CR, XR CHEST 1V, 04/15/2022, 13:44. FINDINGS: Surgical changes and devices: None. Lungs and pleura: There are confluent medial right basilar infrahilar opacities. No pleural effusions or pneumothorax. Mediastinum: Mediastinal contours appear normal. Heart size is normal. Bones and chest wall: No suspicious bony lesions. Overlying soft tissues appear unremarkable. IMPRESSION: 1. Right infrahilar opacities are nonspecific but suggestive of consolidation, versus atelectasis. Dictated by: Stewart Jacobo M.D. on 12/03/2022 at 22:26 Approved by: Stewart Jacobo M.D. on 12/03/2022 at 22:27
--- NOTE | 2022-12-03 21:10 | DI.RAD.S_ITS ---
PROCEDURE: XR PELVIS 1-2V INDICATIONS: fall onto buttocks TECHNIQUE: Single-view of the pelvis acquired. COMPARISON: None. FINDINGS: Bones: No fractures or dislocations. 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 No suspicious bony lesions. Soft tissues: Visualized bowel gas pattern is normal. No suspicious soft tissue calcifications. IMPRESSION: 1. No fracture or dislocation. Dictated by: Stewart Jacobo M.D. on 12/03/2022 at 22:24 Approved by: Stewart Jacobo M.D. on 12/03/2022 at 22:25
--- NOTE | 2022-12-03 21:11 | DI.CT.S_ITS ---
PROCEDURE: CT HEAD/BRAIN WO CON INDICATIONS: fall TECHNIQUE: Noncontrast 4.5 mm thick angled axial sections acquired from the foramen magnum to the vertex, with coronal and sagittal reformats. For radiation dose reduction, the following was used: automated exposure control, adjustment of mA and/or kV according to patient size. COMPARISON: [facility], CT, CT HEAD/BRAIN WO CON, 12/06/2020, 18:31. FINDINGS: Image quality: Excellent. CSF spaces: Basal cisterns are patent. No extra-axial fluid collections. There is moderate cerebral volume loss, with resultant ventricular and sulcal prominence. Brain: No intracranial hemorrhage, mass, or mass effect. There are subcortical, periventricular and deep white matter hypodensities consistent with moderate chronic small vessel ischemic changes. The garcia-white matter junction appears preserved. There is intracranial internal carotid artery atherosclerosis. Skull and face: Calvarium and visualized facial bones appear intact, without suspicious lesions. Sinuses: Visualized sinuses and mastoids are clear. IMPRESSION: 1. No acute intracranial abnormality. 2. Moderate cerebral volume loss and chronic white matter small vessel ischemic changes. Dictated by: Stewart Jacobo M.D. on 12/03/2022 at 22:20 Approved by: Stewart Jacobo M.D. on 12/03/2022 at 22:21
--- NOTE | 2022-12-03 21:19 | ED_ITS ---
HPI - Fall General Chief Complaint: Trauma Stated Complaint: Fall on thinners Time Seen by Provider: 12/03/22 21:10 Source: patient and EMS Mode of arrival: EMS Limitations: no limitations History of Present Illness HPI Narrative: This is an 82-year-old male with history of atrial fibrillation, coronary artery disease, diabetes with pacemaker/AICD on warfarin who presents with complaint of ground level fall. Patient states he lost his balance fell backwards onto his buttocks. Patient states he landed on his buttocks. He denies pain. He has several skin tears on his arms and legs. Patient is anticoagulant Coumadin. Patient states he did not hit his head he denies neck or back pain. He denies headache. He denies chest pain or shortness of breath. No nausea or vomiting, no diarrhea constipation. He has sometimes urinary incontinence but no dysuria urgency or frequency. Patient denies abdominal back or flank pain. Patient states his INR was in the 2 range yesterday. He is on amiodarone, met Toprol, metformin, Jardiance, finasteride, tamsulosin, atorvastatin, melatonin, he takes an aspirin 80 mg in addition his warfarin. He states he has had cardiac stents no valve repairs. He is chronically in atrial fibrillation. Patient has had bilateral knee surgery, spinal stenosis, nephrectomy for a ruptured kidney and carpal tunnel. States allergic to tape. He did have a Lincoln mule today and typically has 1 alcoholic drink daily. No tobacco or illicit. He lives at home independently with family. When patient arrived with a little wobbly medics assisted walking him. He notes his tetanus is up-to-date in the last several years. Related Data Home Medications Medication Instructions Recorded Confirmed amiodarone 200 mg tablet mg 05/21/21 atorvastatin 40 mg tablet mg 05/21/21 bumetanide 1 mg tablet mg 05/21/21 empagliflozin 25 mg tablet mg 05/21/21 (Jardiance) finasteride 5 mg tablet mg 05/21/21 latanoprost 0.005 % eye drops drp 05/21/21 metformin 500 mg tablet,extended mg PO 05/21/21 release 24 hr spironolactone 25 mg tablet mg 05/21/21 tamsulosin 0.4 mg capsule mg PO 05/21/21 warfarin 5 mg tablet See Rx Instructions .Route .COMPLEX 05/21/21 05/21/21 warfarin 5 mg tablet mg 05/21/21 Allergies Allergy/AdvReac Type Severity Reaction Status Date / Time No Known Drug Allergies Allergy Verified 05/21/21 18:44 Review of Systems Review of Systems ROS Unobtainable: All systems reviewed & are unremarkable except as noted in HPI and below Patient History Medical History Anticoagulated Atrial fibrillation Coronary artery disease Social History Smoking Status: Unknown if ever smoked Smoking Status: Unknown if ever smoked alcohol intake frequency: holidays/special occasions only Substance Use Type: does not use Exam Narrative Exam Narrative: GEN: Patient appears in mild distress. HEAD: No evidence of trauma, no raccoon/Smith sign. NECK: Nontender, painless range of motion, trachea midline Negative Nexus criteria, there is no midline line tenderness, distracting injury, altered mental status, neuro deficit, recent EtOH. EYES: PERRLA, EOMI ENT: External inspection normal, trachea is midline, TM's are normal no hemotypanum, Nares are clear, no septal hematoma, no dental or oral injury, airway is normal and with normal occlusion, No bony tenderness RESP: Chest is nontender and has symmetric movement, no ecchymosis, breath sounds are normal no crackles, wheezes or rales CVS: Heart sounds are normal, no murmur noted, No JVD. ABG/GI: Nontender, soft, normal bowel sounds, no distention, no organomegaly, pelvic rock is negative NEURO: Oriented AOx3, neuro is grossly intact, sensation and motor is normal all 4 extremities moving, cranial nerves II through XII are intact, GCS is 15 PSYCH: Normal mood and affect SKIN: Patient has skin tears 1 cm and 2 cm bilateral upper extremities as well as a small skin tear on the left anterior guerrero. Warm and dry, no crepitus and without decubitus BACK: No CVA tenderness, no vertebral tenderness, no step-off's, no crepitus EXT: Atraumatic, hips are nontender, no pedal edema, normal color and temp erature, normal range of motion of extremities with normal tendon exam, 2+ pulses in all four extremities Initial Vital Signs Initial Vital Signs: Vital Signs Temperature 98.2 F 12/03/22 20:54 Pulse Rate 84 12/03/22 20:54 Respiratory Rate 16 12/03/22 20:54 Blood Pressure 83/61 L 12/03/22 20:54 Pulse Oximetry 95 12/03/22 20:54 Oxygen Delivery Method Room Air 12/03/22 20:54 Course Orders Ordered: ED Orders 12/03/22 21:04 Amylase Stat BNP [NT-proBNP (BNP-Adult 18+)] Stat Complete Blood Count AUTO DIFF Stat Comprehensive Metabolic Panel Stat Ethanol (ETOH) Stat Lipase Stat PTT Partial Thromboplastin Masoud Stat Prothrombin Time INR Stat Troponin & CK Cardiac Panel Stat 12/03/22 21:10 XR chest 1V Stat XR pelvis 1-2V Stat 12/03/22 21:11 CT head/brain wo con Stat 12/03/22 22:20 Urine Microscopic Stat Vital Signs Vital signs: Vital Signs - 8 hr 12/03/22 20:54 12/03/22 21:07 12/03/22 21:17 Temperature 98.2 F 98.2 F Pulse Rate 84 97 H 90 Respiratory Rate 16 16 28 H Blood Pressure 83/61 L 96/60 Pulse Oximetry 95 98 96 Oxygen Delivery Method Room Air Room Air 12/03/22 21:30 12/03/22 21:30 12/03/22 21:49 Temperature Pulse Rate 93 H 92 H Respiratory Rate 15 18 Blood Pressure 88/65 L Pulse Oximetry 97 98 Oxygen Delivery Method 12/03/22 21:49 12/03/22 22:00 12/03/22 22:30 Temperature Pulse Rate 90 83 Respiratory Rate 18 16 Blood Pressure 89/59 L Pulse Oximetry 97 97 Oxygen Delivery Method Room Air 12/03/22 23:00 12/03/22 23:30 12/03/22 23:31 Temperature Pulse Rate 86 70 67 Respiratory Rate 14 43 H 40 H Blood Pressure Pulse Oximetry 97 99 98 Oxygen Delivery Method 12/03/22 23:31 Temperature Pulse Rate Respiratory Rate Blood Pressure 96/53 L Pulse Oximetry Oxygen Delivery Method MDM - Fall Lab Data 12/03/22 21:04 12/03/22 21:04 Labs: Lab Results 12/03/22 12/03/22 12/03/22 Range/Units 21:04 21:04 21:04 WBC 5.0 (4.5-11.0) X10^3/uL RBC 3.53 L (4.5-5.9) X10^6/uL Hgb 11.7 L (13.5-17.5) g/dL Hct 34.5 L (41-53) % MCV 97.7 (80-100) fL MCH 33.2 (26-34) PG MCHC 34.0 (30-36) % RDW 14.1 (11.6-14.8) % Plt Count 130 L (150-400) X10^3/uL Neut % (Auto) 54.7 (50-75) % Lymph % (Auto) 30.1 (25-40) % [place] % (Auto) 13.6 (3-14) % Eos % (Auto) 0.8 L (2-4) % Baso % (Auto) 0.8 (0-2) % Neut # (Auto) 2700 (9553-0850) /uL Lymph # (Auto) 1500 (8869-9502) /uL [place] # (Auto) 700 (0-900) /uL Eos # (Auto) 0 (0-450) /uL Baso # (Auto) 0 (0-100) /uL PT 45.6 H (10.1-12.7) SECONDS INR 3.9 H (0.9-1.3) APTT 42 H (26-36) SECONDS Sodium 133 L (137-145) mmol/L Potassium 4.2 (3.4-5.1) mmol/L Chloride 94 L (98-107) mmol/L Carbon Dioxide 21 L (22-32) mmol/L BUN 32 H (9-20) mg/dL Creatinine 2.08 H (0.66-1.25) mg/dL Estimated GFR 31 L (>60) mL/min BUN/Creatinine Ratio 15.4 (6-22) Glucose 110 (80-110) mg/dL Calcium 9.3 (8.4-10.2) mg/dL Total Bilirubin 0.9 (0.2-1.3) mg/dL AST 46 (17-59) IU/L ALT 45 (<50) IU/L Alkaline Phosphatase 50 (38-126) U/L Total Creatine Kinase (55-170) U/L CK-MB (CK-2) CK-MB (CK-2) Rel Index Troponin I (0.01-0.034) ng/mL NT-Pro-B Natriuret Pep (<450) pg/mL Total Protein 6.9 (6.3-8.2) g/dL Albumin 4.1 (3.5-5.0) g/dL Globulin 2.8 (1.7-4.1) g/dL Albumin/Globulin Ratio 1.5 (1.0-2.8) Amylase 104 (30-110) U/L Lipase 342 H (23-300) U/L Urine RBC (0-5/HPF) Urine WBC (0-5/HPF) Ur Squamous Epith Cells (0-5/HPF) Urine Bacteria (None) Ur Culture Indicated? Ethyl Alcohol 88 H ( - 10) mg/dL 12/03/22 12/03/22 Range/Units 21:04 22:20 WBC (4.5-11.0) X10^3/uL RBC (4.5-5.9) X10^6/uL Hgb (13.5-17.5) g/dL Hct (41-53) % MCV (80-100) fL MCH (26-34) PG MCHC (30-36) % RDW (11.6-14.8) % Plt Count (150-400) X10^3/uL Neut % (Auto) (50-75) % Lymph % (Auto) (25-40) % [place] % (Auto) (3-14) % Eos % (Auto) (2-4) % Baso % (Auto) (0-2) % Neut # (Auto) (4502-9396) /uL Lymph # (Auto) (9473-2391) /uL [place] # (Auto) (0-900) /uL Eos # (Auto) (0-450) /uL Baso # (Auto) (0-100) /uL PT (10.1-12.7) SECONDS INR (0.9-1.3) APTT (26-36) SECONDS Sodium (137-145) mmol/L Potassium (3.4-5.1) mmol/L Chloride (98-107) mmol/L Carbon Dioxide (22-32) mmol/L BUN (9-20) mg/dL Creatinine (0.66-1.25) mg/dL Estimated GFR (>60) mL/min BUN/Creatinine Ratio (6-22) Glucose (80-110) mg/dL Calcium (8.4-10.2) mg/dL Total Bilirubin (0.2-1.3) mg/dL AST (17-59) IU/L ALT (<50) IU/L Alkaline Phosphatase (38-126) U/L Total Creatine Kinase 53 L (55-170) U/L CK-MB (CK-2) TNP CK-MB (CK-2) Rel Index TNP Troponin I 0.065 H (0.01-0.034) ng/mL NT-Pro-B Natriuret Pep 9570 H (<450) pg/mL Total Protein (6.3-8.2) g/dL Albumin (3.5-5.0) g/dL Globulin (1.7-4.1) g/dL Albumin/Globulin Ratio (1.0-2.8) Amylase (30-110) U/L Lipase (23-300) U/L Urine RBC 1-5/hpf D (0-5/HPF) Urine WBC None seen (0-5/HPF) Ur Squamous Epith Cells None seen (0-5/HPF) Urine Bacteria None seen (None) Ur Culture Indicated? Cult not indicated Ethyl Alcohol ( - 10) mg/dL Urine Dip Bedside Urine Glucose 500 mg/dl Bedside Urine Bilirubin - Negative Bedside Urine Ketone - Negative Urine Specific [place] 1.005 Bedside Urine Occult Blood ++ Bedside Urine pH 6.0 Bedside Urine Protein - Negative Bedside Urine Urobilinogen - Negative Bedside Urine Nitrite - Negative Bedside Urine Leukocytes - Negative Esterase ECG Data Attestation: I personally reviewed and interpreted this ECG as follows: Prior ECG tracings: available for review Interpretation: AFib left axis deviation, right bundle-branch. Rate of 84 QRS of 134 QTC of 515. No acute ST changes. Patient has prior from 04/15/2022 does not show any acute or new changes. [facility] Narrative Medical decision making narrative: This is an 82-year-old male who presents with ground level fall. Patient is hypotensive but states he is normally systolic of 80 over 60s at his best he is in the 90s typically his daughter at bedside states that is true. Patient is in AFib but rate controlled, patient states he lost his balance fell on his buttocks he does not have lot of complaints of pain he has several skin tears. He had INR checked yesterday he is on warfarin for AFib and has known coronary artery disease. Patient's workup includes head CT did not strike his head but family thought he might although patient seems quite alert and appropriate. INR was 3.9 is negative. Chest x-ray and pelvic x-ray do not show fracture, mild osteoarthritic changes, right infrahilar opacities nonspecific consolidation versus atelectasis. Patient's workup shows anemia, patient has priors from 2021 and creatinine is 2 today after discussion patient has known renal failure and likely is his baseline for these labs. They do not know exact numbers but from our discussion appears that he is following regularly. Troponin is indeterminate. He is currently asymptomatic, BNP is elevated. Patient ambulated the entire circumference in the department without significant shortness of breath he has not appreciated new changes some of this maybe related to his renal dysfunction so would not change his medications or labs at this time. He is not hypoxic. He is ambulating well felt appropriate for discharge home. INR is elevated at 3.9. He has not had his warfarin tonight so will hold tonight's dose, night have his INR rechecked on Thursday with Dr. Chavarria his PCP, daughter will help set this up before restarting his medication. Reviewed return precautions. Wound care directions, reviewed all of his findings with patient, daughter and her at bedside. All questions answered. Patient feel comfortable with discharge. Discharge Plan Departure Patient Disposition: Home Clinical Impression: CHF (congestive heart failure), Fall, Skin tear, LANCE (acute kidney injury), Elevated INR Instructions: How to Prevent Falls Activity Restrictions/Additional Instructions: Follow-up with your physician for recheck, your creatinine is at 2.08 today with a GFR of 31 this may be your baseline but talk with your physician. Your INR today is 3.9, do not take your warfarin tonight or tomorrow night, follow-up Thursday with your primary care physician to have your INR level rechecked. Please call tomorrow to set up your follow-up. You may continue your other home medications as prescribed. Make sure to keep your skin tears clean and dry. Wash them once daily with soap and water. Use a nonstick bandage change these once daily or if they get wet. You can use a small amount of topical triple antibiotic ointment to the affected area as needed. Please return for headaches, new neck or back pain, new chest pain or shortness of breath, new swelling in your extremities, signs of infection at your skin tears, vomiting or other new or concerning changes. Prescriptions: No Action warfarin 5 mg tablet See Rx Instructions .ROUTE .COMPLEX Patient Comments: 5mg on mon, tue, thurs, fri, and sat 2.5mg on sun and wed Rx Instructions: 5mg on mon, tue, th, fri, and sat 2.5mg on sun and wed latanoprost 0.005 % drops atorvastatin 40 mg tablet amiodarone 200 mg tablet spironolactone 25 mg tablet tamsulosin 0.4 mg capsule PO warfarin 5 mg tablet bumetanide 1 mg tablet metformin 500 mg tablet extended release 24 hr PO finasteride 5 mg tablet Jardiance 25 mg tablet Referrals: Lindsay Chavarria MD [Primary Care Provider] - Stand Alone Forms: Patient Portal/API
[2022-12-03 21:25] LABS: INR 3.9 (0.9-1.3); Prothrombin Time 45.6 SECONDS (10.1-12.7)
[2022-12-03 21:28] LABS: PTT Partial Thromboplastin Tim 42 SECONDS (26-36)
[2022-12-03 21:34] LABS: Add Manual Diff / Slide Review NO; Basophils Absolute Auto 0 /uL (0-100); Basophils Percent Auto 0.8 % (0-2); Eosinophils Absolute Auto 0 /uL (0-450); Eosinophils Percent Auto 0.8 % (2-4); Hematocrit 34.5 % (41-53); Hemoglobin 11.7 g/dL (13.5-17.5); Lymphocytes Absolute Auto 1500 /uL (1100-4500); Lymphocytes Percent Auto 30.1 % (25-40); Mean Corpuscular Hemoglobin 33.2 PG (26-34); Mean Corpuscular Volume 97.7 fL (80-100); Monocytes Absolute Auto 700 /uL (0-900); Monocytes Percent Auto 13.6 % (3-14); Neutrophils Absolute Auto 2700 /uL (1500-7000); Neutrophils Percent Auto 54.7 % (50-75); Platelet Count 130 X10^3/uL (150-400); Red Blood Cell Count 3.53 X10^6/uL (4.5-5.9); Red Cell Distribution Width 14.1 % (11.6-14.8)
[2022-12-03 21:40] LABS: Alanine Aminotransferase 45 IU/L (<50); Albumin 4.1 g/dL (3.5-5.0); Albumin Globulin Ratio 1.5 (1.0-2.8); Alkaline Phosphatase 50 U/L (38-126); Amylase 104 U/L (30-110); Aspartate Aminotransferase 46 IU/L (17-59); BUN Creatinine Ratio 15.4 (6-22); Bilirubin Total 0.9 mg/dL (0.2-1.3); Blood Urea Nitrogen 32 mg/dL (9-20); Calcium 9.3 mg/dL (8.4-10.2); Carbon Dioxide 21 mmol/L (22-32); Chloride 94 mmol/L (98-107); Creatine Kinase 53 U/L (55-170); Estimated Glomerular Filt Rate 31 mL/min (>60); Globulin 2.8 g/dL (1.7-4.1); Glucose 110 mg/dL (80-110); HEMOLYSIS < 15 (0-50); Lipase 342 U/L (23-300); Potassium 4.2 mmol/L (3.4-5.1); Sodium 133 mmol/L (137-145); Total Protein 6.9 g/dL (6.3-8.2)
[2022-12-03 21:52] LABS: NT-proBNP (BNP-Adult 18+) 9570 pg/mL (<450); Troponin I 0.065 ng/mL (0.01-0.034)
[2022-12-03 22:18] LABS: Ethanol (ETOH) 88 mg/dL
[2022-12-03 23:00] LABS: Bacteria Urine None Seen; Culture Indicated Urine Cult Not Indicated; RBC Urine 1-5/HPF (0-5/HPF); Squamous Epithelial Cell Urine None Seen (0-5/HPF); WBC Urine None Seen (0-5/HPF)
== END 2022-12-03 23:45 | disposition home or self-care (01) ==
PROVIDERS: Emergency Provider Emergency Medicine; PCP Internal Medicine
DX: S51.812A Laceration without foreign body of left forearm, initial encounter (principal); S51.811A Laceration without foreign body of right forearm, initial encounter; S81.812A Laceration without foreign body, left lower leg, initial encounter; I50.9 Heart failure, unspecified; N17.9 Acute kidney failure, unspecified; R79.1 Abnormal coagulation profile; Z79.01 Long term (current) use of anticoagulants; W18.30XA Fall on same level, unspecified, initial encounter; I48.91 Unspecified atrial fibrillation; I45.10 Unspecified right bundle-branch block
CPT/HCPCS: 36415; 70450; 71045; 72170; 80053; 80320; 81003; 81015; 82150; 82550; 83690; 83880; 84484; 85025; 85610; 85730; 93005; 93010; 99284

== ENCOUNTER → 2022-12-25 12:59 | Outpatient (CLI) | payer OTHER, SELFPAY ==
--- NOTE | 2022-12-25 | DI.CT.S_ITS ---
PROCEDURE: CT CHEST WO CON INDICATIONS: Solitary pulmonary nodule TECHNIQUE: Noncontrast 5 mm thick sections acquired from the pulmonary apices to the posterior costophrenic angles. 1 mm lung window, 5 mm thick coronal and sagittal and 7 mm axial MIP reformats were then acquired. For radiation dose reduction, the following was used: automated exposure control, adjustment of mA and/or kV according to patient size. COMPARISON: [facility], CT, CT CHEST WO CON, 08/27/2022, 12:37. FINDINGS: Image quality: Excellent. Lungs and pleura: Moderate-sized right pleural effusion is new compared to the prior CT on 08/27/2022. No pneumothorax. A spiculated nodule was seen on 08/27/2022 in the right middle lobe and on the current exam there is an area of atelectasis in the right middle lobe and this nodule could be within the area of atelectasis, also a moderate-sized right pleural effusion has developed since the prior study. A small left pleural effusion has also developed. Mediastinum: Heart size is enlarged. No pericardial effusion. The coronary arteries have atherosclerotic calcifications. No mediastinal adenopathy by size criteria. Thoracic aorta and central pulmonary arteries are normal in size. Esophagus is normal in caliber. No hiatal hernia. Bones and chest wall: No suspicious bony lesions. No vertebral body compression fractures. No axillary or supraclavicular adenopathy by size criteria. Thyroid gland is normal. Abdomen: Visualized upper abdominal solid organs and bowel loops appear normal in the absence of contrast. Calcified cyst of the right kidney is unchanged. IMPRESSION: Previously seen right middle lobe spiculated nodule is not well delineated on this study, however there is a new area of atelectasis in the right middle lobe and the previously seen mass could lie within this area of atelectasis. Also a moderate-sized right and small left pleural effusion has developed. Recommend thoracentesis with analysis of fluid and bronchoscopy versus PET scan. Dictated by: Seven Carmen M.D. on 12/25/2022 at 15:35 Approved by: Seven Carmen M.D. on 12/25/2022 at 15:46
== END ==
PROVIDERS: PCP Internal Medicine; Referring Provider Internal Medicine Cardiovascular Disease; Visit Provider Internal Medicine Cardiovascular Disease
DX: R91.1 Solitary pulmonary nodule (principal); J98.11 Atelectasis; J90 Pleural effusion, not elsewhere classified
CPT/HCPCS: 71250

== ENCOUNTER → 2023-01-12 13:29 | Outpatient (CLI) | payer OTHER, SELFPAY ==
[2023-01-12 14:37] LABS: INR 2.8 (0.9-1.3); Prothrombin Time 32.6 SECONDS (10.1-12.7)
== END ==
PROVIDERS: PCP Internal Medicine; Referring Provider Internal Medicine; Visit Provider Internal Medicine
DX: Z51.81 Encounter for therapeutic drug level monitoring (principal); Z79.01 Long term (current) use of anticoagulants
CPT/HCPCS: 36415; 85610

== ENCOUNTER → 2023-02-03 16:45 | Outpatient (CLI) | payer OTHER, SELFPAY ==
--- NOTE | 2023-02-03 16:48 | DI.RAD.S_ITS ---
PROCEDURE: XR CHEST 2V INDICATIONS: PNEUMONIA TECHNIQUE: 2 views of the chest were acquired. COMPARISON: [facility], CR, XR CHEST 1V, 12/03/2022, 20:47. FINDINGS: Surgical changes and devices: Left-sided pacer. Lungs and pleura: There is increased moderate right basilar opacity. No pneumothorax. There is a small right pleural effusion. Mediastinum: Mediastinal contours are normal. Heart size is normal. Bones and chest wall: No suspicious bony abnormalities. Soft tissues appear unremarkable. IMPRESSION: Increased right lung base pneumonia with small parapneumonic effusion. Continued plain film surveillance is recommended to ensure resolution, and to exclude underlying or central malignancy. Dictated by: Pedro Blackmon M.D. on 02/04/2023 at 13:13 Approved by: Pedro Blackmon M.D. on 02/04/2023 at 13:13
== END ==
PROVIDERS: PCP Internal Medicine; Referring Provider Internal Medicine; Visit Provider Internal Medicine
DX: J18.9 Pneumonia, unspecified organism (principal)
CPT/HCPCS: 71046

== ENCOUNTER → 2023-03-04 11:02 | Outpatient (CLI) | payer OTHER, SELFPAY ==
--- NOTE | 2023-03-04 | DI.CT.S_ITS ---
PROCEDURE: CT CHEST WO CON INDICATIONS: Pleural effusion, not elsewhere classified TECHNIQUE: Noncontrast 5 mm thick sections acquired from the pulmonary apices to the posterior costophrenic angles. 1 mm lung window, 5 mm thick coronal and sagittal and 7 mm axial MIP reformats were then acquired. For radiation dose reduction, the following was used: automated exposure control, adjustment of mA and/or kV according to patient size. COMPARISON: [facility], CT, CT CHEST WO CON, 12/25/2022, 13:58. FINDINGS: Image quality: Good Lungs and pleura: Small right pleural effusion is slightly decreased. Thick area of suspected segmental atelectasis again seen in the right middle lobe, conspicuity is slightly decreased compared to November, but slightly increased compared to August. No consolidations. Centrilobular nodules are seen in the periphery of the right lower lobe, probably infectious/inflammatory. A new subpleural nodule is seen in the medial portion of the left lower lobe measuring 1.1 cm. (3/278) Mediastinum, heart, and esophagus: Atherosclerotic calcifications. Mildly enlarged heart. Coronary disease. Left chest wall portion the reluctant lead in place. Suspected trace pericardial effusion. No pathologic lymph nodes by size criteria. Unchanged prominent lymph nodes are present. Attention on follow-up. Chest wall and thyroid: Right thyroid calcifications. There are prominent, asymmetric left axillary lymph nodes again seen. Attention on follow-up. Upper abdomen: Calcified right renal lesion is partially visualized. No gross abnormality otherwise. Abdominal findings are better seen on recent contrast-enhanced CT. Bones: Degenerative changes. IMPRESSION: Thick area of suspected and segmental atelectasis again seen in the middle lobe, slightly decreased compared to November, but more conspicuous compared to August. There is also a new nodule in the medial portion of the left lower lobe subpleural region (3/278). Small right pleural effusion. Consider continued surveillance depending on clinical context and any history of malignancy. Other findings as above. Dictated by: Sumeet Rios M.D. on 03/04/2023 at 13:20 Approved by: Sumeet Rios M.D. on 03/04/2023 at 13:28
== END ==
PROVIDERS: PCP Internal Medicine; Referring Provider Internal Medicine; Visit Provider Internal Medicine
DX: J18.9 Pneumonia, unspecified organism (principal); J90 Pleural effusion, not elsewhere classified; R91.1 Solitary pulmonary nodule
CPT/HCPCS: 71250

== ENCOUNTER → 2023-04-09 09:47 | Outpatient (CLI) | payer OTHER, SELFPAY | PROVIDERS: PCP Internal Medicine; Referring Provider Internal Medicine Cardiovascular Disease; Visit Provider Internal Medicine Cardiovascular Disease | DX: J98.8 Other specified respiratory disorders (principal); Z79.899 Other long term (current) drug therapy | CPT/HCPCS: 94060; 94729 ==

== ENCOUNTER → 2023-05-05 10:06 | Outpatient (CLI) | payer OTHER, SELFPAY ==
[2023-05-05 11:13] LABS: BUN Creatinine Ratio 18.9 (6-22); Blood Urea Nitrogen 33 mg/dL (9-20); Calcium 10.1 mg/dL (8.4-10.2); Carbon Dioxide 30 mmol/L (22-32); Chloride 99 mmol/L (98-107); Estimated Glomerular Filt Rate 38 mL/min (>60); Glucose 114 mg/dL (80-110); HEMOLYSIS < 15 (0-50); Phosphorous 3.6 mg/dL (2.3-3.7); Potassium 4.4 mmol/L (3.4-5.1); Sodium 135 mmol/L (137-145)
[2023-05-07 09:15] LABS: Parathyroid Hormone Int 39 pg/mL (15-65)
== END ==
PROVIDERS: PCP Internal Medicine; Referring Provider Internal Medicine Nephrology; Visit Provider Internal Medicine Nephrology
DX: N05.9 Unspecified nephritic syndrome with unspecified morphologic changes (principal); N25.81 Secondary hyperparathyroidism of renal origin
CPT/HCPCS: 36415; 80048; 83970; 84100

== ENCOUNTER → 2023-07-30 14:32 | Outpatient (CLI) | payer OTHER, SELFPAY ==
[2023-07-30 16:19] LABS: Add Manual Diff / Slide Review NO; Basophils Absolute Auto 0 /uL (0-100); Basophils Percent Auto 0.3 % (0-2); Eosinophils Absolute Auto 100 /uL (0-450); Eosinophils Percent Auto 1.5 % (2-4); Hematocrit 39.4 % (41-53); Hemoglobin 13.7 g/dL (13.5-17.5); Lymphocytes Absolute Auto 1800 /uL (1100-4500); Lymphocytes Percent Auto 24.2 % (25-40); Mean Corpuscular HGB Conc 34.6 % (30-36); Mean Corpuscular Hemoglobin 33.5 PG (26-34); Mean Corpuscular Volume 96.7 fL (80-100); Monocytes Absolute Auto 900 /uL (0-900); Monocytes Percent Auto 12.1 % (3-14); Neutrophils Absolute Auto 4600 /uL (1500-7000); Neutrophils Percent Auto 61.9 % (50-75); Platelet Count 149 X10^3/uL (150-400); Red Blood Cell Count 4.08 X10^6/uL (4.5-5.9); Red Cell Distribution Width 14.3 % (11.6-14.8); White Blood Cell Count 7.4 X10^3/uL (4.5-11.0)
[2023-07-30 17:09] LABS: BUN Creatinine Ratio 17.7 (6-22); Blood Urea Nitrogen 41 mg/dL (9-20); Calcium 10.5 mg/dL (8.4-10.2); Carbon Dioxide 32 mmol/L (22-32); Chloride 94 mmol/L (98-107); Estimated Glomerular Filt Rate 27 mL/min (>60); Glucose 117 mg/dL (80-110); HEMOLYSIS < 15 (0-50); Phosphorous 3.6 mg/dL (2.3-3.7); Potassium 4.4 mmol/L (3.4-5.1); Sodium 135 mmol/L (137-145)
[2023-08-04 05:37] LABS: Parathyroid Hormone Int 30 pg/mL (15-65)
== END ==
PROVIDERS: PCP Internal Medicine; Referring Provider Internal Medicine Nephrology; Visit Provider Internal Medicine Nephrology
DX: N05.9 Unspecified nephritic syndrome with unspecified morphologic changes (principal); N25.81 Secondary hyperparathyroidism of renal origin; D70.9 Neutropenia, unspecified; D63.1 Anemia in chronic kidney disease
CPT/HCPCS: 36415; 80048; 83970; 84100; 85025

== ENCOUNTER → 2023-08-18 14:53 | Outpatient (CLI) | payer MEDICARE, SELFPAY ==
[2023-08-19 03:13] LABS: Complement C3 115 mg/dL (82-167)
[2023-08-20 12:37] LABS: Albumin 3.8 g/dL (2.9-4.4); Alpha-1-Globulin 0.3 g/dL (0.0-0.4); Alpha-2-Globulin 0.7 g/dL (0.4-1.0); Gamma Globulin 1.6 g/dL (0.4-1.8); Globulin Total 3.7 g/dL (2.2-3.9); Protein, Total 7.5 g/dL (6.0-8.5)
[2023-08-20 14:47] LABS: ANA Screen, IFA Negative (.)
[2023-08-21 19:42] LABS: Antimyeloperoxidase Antibodies <0.2 units (0.0-0.9); Antiproteinase 3 Antibodies <0.2 units (0.0-0.9); Cytoplasmic C-ANCA <1:20 titer (Neg:<1:20); Perinuclear P-ANCA <1:20 titer (Neg:<1:20)
== END ==
PROVIDERS: PCP Internal Medicine; Referring Provider Internal Medicine Nephrology; Visit Provider Internal Medicine Nephrology
DX: L93.2 Other local lupus erythematosus (principal); M31.30 Wegener's granulomatosis without renal involvement; N00.9 Acute nephritic syndrome with unspecified morphologic changes; I77.6 Arteritis, unspecified; D89.89 Other specified disorders involving the immune mechanism, not elsewhere classified; D47.2 Monoclonal gammopathy
CPT/HCPCS: 36415; 84155; 84165; 86038; 86160; 86256

== ENCOUNTER → 2023-09-09 12:29 | Outpatient (CLI) | payer MEDICARE, SELFPAY ==
[2023-09-09 13:33] LABS: BUN Creatinine Ratio 18.1 (6-22); Blood Urea Nitrogen 41 mg/dL (9-20); Carbon Dioxide 30 mmol/L (22-32); Chloride 103 mmol/L (98-107); Estimated Glomerular Filt Rate 28 mL/min (>60); Glucose 115 mg/dL (80-110); HEMOLYSIS < 15 (0-50); Potassium 4.9 mmol/L (3.4-5.1); Sodium 138 mmol/L (137-145)
== END ==
LOC: LAB 12:30
PROVIDERS: PCP Internal Medicine; Referring Provider Internal Medicine Nephrology; Visit Provider Internal Medicine Nephrology
DX: E11.9 Type 2 diabetes mellitus without complications (principal)
CPT/HCPCS: 36415; 80048

== ENCOUNTER → 2023-09-11 10:52 | Outpatient (CLI) | payer MEDICARE, SELFPAY ==
--- NOTE | 2023-09-11 10:55 | DI.RAD.S_ITS ---
PROCEDURE: XR CHEST 2V INDICATIONS: SOB TECHNIQUE: 2 views of the chest were acquired. COMPARISON: [facility], CT, CT ABDOMEN RENAL PROTOCOL, 01/06/2023, 14:51. [facility], CR, XR CHEST 2V, 02/03/2023, 16:58. FINDINGS: Surgical changes and devices: Left-sided defibrillator electrode terminates in expected position. Lungs and pleura: Right basilar consolidation with moderate right-sided pleural effusion persist. No left-sided pleural effusion or pneumothorax. Mediastinum: Mediastinal contours are normal. Heart size is borderline enlarged. Bones and chest wall: No suspicious bony abnormalities. Soft tissues appear unremarkable. Peripherally calcified renal cyst in the right upper quadrant is partially visualized. IMPRESSION: Right basilar consolidation with moderate right-sided pleural effusion persist since January 06, 2023. Recommend a contrast enhanced CT of the chest to rule out a centrally obstructive malignancy. Dictated by: Eleanor Rowan M.D. on 09/11/2023 at 22:55 Approved by: Eleanor Rowan M.D. on 09/11/2023 at 22:59
--- NOTE | 2023-09-11 10:55 | DI.RAD.S_ITS ---
PROCEDURE: XR LUMBAR SPINE 2-3V INDICATIONS: BACK PAIN TECHNIQUE: 3 views of the lumbar spine were acquired. COMPARISON: [facility], MR, MR BONE MARROW SURVEY, 06/23/2023, 11:42, [facility], CT, CT ABDOMEN RENAL PROTOCOL, 01/06/2023, 14:51. FINDINGS: Bones: 5 [id number] vertebrae are present. Age-indeterminate compression fractures at L3 and L4 with approximately 40 percent and 20 percent height loss, respectively. These are new compared to MRI dated March 24, 2023. There is mild to moderate osseous retropulsion. No definite suspicious osseous lesions. Multilevel degenerative changes, moderate to severe at L3-4 , L4-5 and L5-S1 with disc height loss, osteophytosis and facet arthropathy with associated osseous neural foraminal narrowing. Soft tissues: Overlying bowel gas pattern is normal. No suspicious soft tissue calcifications. IMPRESSION: 1. Age-indeterminate compression fractures at L3 and L4 with approximately 40 percent and 20 percent height loss, respectively, which are new compared to prior. There is mild to moderate osseous retropulsion. Pathologic fractures are not excluded given history of prior renal mass. Recommend an MRI of the lumbar spine with and without contrast for further characterization. If clinically appropriate, the patient may be an appropriate candidate for vertebral augmentation. 2. Multilevel degenerative changes of the spine. An [employer] secure message was sent to Dr. Lobo Howard on 09/12/23. The patient's PCP will also be contacted about the recommendations. Dictated by: Eleanor Rowan M.D. on 09/11/2023 at 22:45 Approved by: Eleanor Rowan M.D. on 09/12/2023 at 16:24
== END ==
LOC: RAD 10:53
PROVIDERS: PCP Internal Medicine; Referring Provider Internal Medicine; Visit Provider Internal Medicine
DX: M47.816 Spondylosis without myelopathy or radiculopathy, lumbar region (principal); M47.817 Spondylosis without myelopathy or radiculopathy, lumbosacral region; M48.56XA Collapsed vertebra, not elsewhere classified, lumbar region, initial encounter for fracture; J90 Pleural effusion, not elsewhere classified; I50.23 Acute on chronic systolic (congestive) heart failure; M54.50 Low back pain, unspecified
CPT/HCPCS: 71046; 72100

== ENCOUNTER → 2023-09-25 14:26 | Outpatient (CLI) | payer MEDICARE, SELFPAY ==
--- NOTE | 2023-09-25 14:27 | DI.US.S_ITS ---
PROCEDURE: US ABDOMEN COMPLETE INDICATIONS: CKD, ABNORMAL LABS TECHNIQUE: Real-time scanning was performed of the abdominal and retroperitoneal organs, with image documentation. COMPARISON: [facility], CT, CT ABDOMEN RENAL PROTOCOL, 01/06/2023, 14:51. FINDINGS: Liver: Liver is normal in size and homogeneous in echotexture. Gallbladder: Nondilated. Multiple gallstones. Normal gallbladder wall thickness. No pericholecystic fluid. Negative sonographic Bhagat's sign. Biliary ducts: Intrahepatic bile ducts are non-dilated. Extrahepatic bile duct caliber measures 7 mm. Normal is 6-7 mm or less in diameter, or 10 mm or less post-cholecystectomy. Pancreas: Not well seen due to overlying bowel gas. Spleen: Spleen is normal in size and homogeneous in echotexture. Measures 9.3 cm. Kidneys: Kidneys are normal in size and echotexture. Right kidney measures 11.3 cm long; left kidney measures 10.3 cm long. Echogenicity is within normal limits. No hydronephrosis or nephrolithiasis. A few simple appearing renal cysts bilaterally. (Rim calcifications seen on prior CT). No solid masses. Aorta: Not well seen due to overlying bowel gas. Iliacs: Not well seen due to overlying bowel gas. IVC: Intrahepatic inferior vena cava is patent. Miscellaneous: No free abdominal fluid. Right pleural effusion. IMPRESSION: 1. No hydronephrosis. 2. Multiple gallstones. No acute cholecystitis. 3. Right pleural effusion. Dictated by: Dave Saldana M.D. on 09/25/2023 at 17:25 Approved by: Dave Saldana M.D. on 09/25/2023 at 17:27
== END ==
PROVIDERS: PCP Internal Medicine; Referring Provider Physician Assistant
DX: N28.1 Cyst of kidney, acquired (principal); J90 Pleural effusion, not elsewhere classified; N18.32 Chronic kidney disease, stage 3b; R94.5 Abnormal results of liver function studies; K80.20 Calculus of gallbladder without cholecystitis without obstruction; N28.9 Disorder of kidney and ureter, unspecified
CPT/HCPCS: 76700

== ENCOUNTER → 2023-10-12 13:57 | Outpatient (CLI) | payer MEDICARE, SELFPAY ==
[2023-10-12 15:18] LABS: BUN Creatinine Ratio 16.7 (6-22); Blood Urea Nitrogen 35 mg/dL (9-20); Carbon Dioxide 28 mmol/L (22-32); Chloride 100 mmol/L (98-107); Estimated Glomerular Filt Rate 30 mL/min (>60); Glucose 120 mg/dL (80-110); HEMOLYSIS < 15 (0-50); Potassium 4.7 mmol/L (3.4-5.1); Sodium 136 mmol/L (137-145)
== END ==
PROVIDERS: PCP Internal Medicine; Referring Provider Internal Medicine Nephrology; Visit Provider Internal Medicine Nephrology
DX: E11.9 Type 2 diabetes mellitus without complications (principal); N05.9 Unspecified nephritic syndrome with unspecified morphologic changes
CPT/HCPCS: 36415; 80048

== ENCOUNTER → 2023-11-09 16:40 | Outpatient (CLI) | payer MEDICARE, SELFPAY ==
[2023-11-09 17:39] LABS: BUN Creatinine Ratio 22.3 (6-22); Blood Urea Nitrogen 46 mg/dL (9-20); Calcium 10.3 mg/dL (8.4-10.2); Carbon Dioxide 28 mmol/L (22-32); Chloride 103 mmol/L (98-107); Estimated Glomerular Filt Rate 31 mL/min (>60); Glucose 135 mg/dL (80-110); HEMOLYSIS < 15 (0-50); Potassium 4.9 mmol/L (3.4-5.1); Sodium 137 mmol/L (137-145)
== END ==
PROVIDERS: PCP Internal Medicine; Referring Provider Internal Medicine Nephrology; Visit Provider Internal Medicine Nephrology
DX: E11.9 Type 2 diabetes mellitus without complications (principal)
CPT/HCPCS: 36415; 80048

== ENCOUNTER 2023-11-25 12:46 | Emergency (ER) | payer MEDICARE, SELFPAY ==
[2023-11-25] VITALS (11 sets, daily range): BP systolic 90–109; BP diastolic 61–70; PULSE 61–92; RESP 13–22; TEMP 36.5; O2SAT 91–98; BMI 26.4
--- NOTE | 2023-11-25 13:01 | DI.RAD.S_ITS ---
PROCEDURE: XR LUMBAR SPINE 2-3V INDICATIONS: LBP after fall TECHNIQUE: 3 views of the lumbar spine were acquired. COMPARISON: [facility], CR, XR LUMBAR SPINE 2-3V, 09/11/2023, 11:20. FINDINGS: Bones: 5 [id number] vertebrae are present. There is normal bony alignment. Unchanged compression deformity at L3. Trace anterolisthesis of L3 on L4, trace retrolisthesis of L5 on S1. Multilevel degenerative disc and foraminal narrowing most severe at L4-5 and L5-S1. Soft tissues: Overlying bowel gas pattern is normal. No suspicious soft tissue calcifications. IMPRESSION: Stable L3 compression deformity. Dictated by: Sophia Victor M.D. on 11/25/2023 at 13:51 Approved by: Sophia Victor M.D. on 11/25/2023 at 13:51
--- NOTE | 2023-11-25 13:01 | ED_ITS ---
HPI - General Adult General Chief complaint: Fall Stated complaint: Back pain,fall on blood thinners Time Seen by Provider: 11/25/23 12:54 Source: patient and family Mode of arrival: EMS Limitations: no limitations History of Present Illness HPI narrative: Patient is an 83-year-old male. Initially reported that he was on Coumadin but it turns out that he has not been on Coumadin for the past month. Is here for evaluation of lower back discomfort. He was seen in an emergency department several weeks/months ago after having a fall. He was told that he had compression fractures in his back. He was sent home with tramadol. Apparently was having hallucinations on tramadol so he was currently not on any pain medication. Has multiple falls in a week and this is baseline for him. This morning he was unable to get up off the toilet because of discomfort. He was having pain in his lower back. Systolic appear to be new pain but maybe exacerbation of old pain. No pain in his legs or lower extremities. No urinary symptoms. Related Data Home Medications Medication Instructions Recorded Confirmed amiodarone 200 mg tablet mg 05/21/21 atorvastatin 40 mg tablet mg 05/21/21 bumetanide 1 mg tablet mg 05/21/21 empagliflozin 25 mg tablet mg 05/21/21 (Jardiance) finasteride 5 mg tablet mg 05/21/21 latanoprost 0.005 % eye drops drp 05/21/21 metformin 500 mg tablet,extended mg PO 05/21/21 release 24 hr spironolactone 25 mg tablet mg 05/21/21 tamsulosin 0.4 mg capsule mg PO 05/21/21 warfarin 5 mg tablet See Rx Instructions .Route .COMPLEX 05/21/21 05/21/21 warfarin 5 mg tablet mg 05/21/21 Previous Rx's Medication Instructions Recorded docusate sodium 100 mg capsule 100 mg PO BID PRN constipation #30 11/25/23 (Colace) caps hydrocodone 5 mg-acetaminophen 325 1 tab PO Q4-6H PRN pain #30 tabs 11/25/23 mg tablet Allergies Allergy/AdvReac Type Severity Reaction Status Date / Time No Known Drug Allergies Allergy Verified 05/21/21 18:44 Review of Systems Constitutional Constitutional: Reports system reviewed and no additional complaints, except as documented Musculoskeletal Musculoskeletal: Reports system reviewed and no additional complaints, except as documented Integumentary/Breasts Skin/Breast: Reports system reviewed and no additional complaints, except as documented Neurologic Neurologic: Reports system reviewed and no additional complaints, except as documented Patient History Medical History Coronary artery disease Atrial fibrillation Anticoagulated Social History Smoking Status: Unknown if ever smoked Smoking Status: Unknown if ever smoked alcohol intake frequency: holidays/special occasions only Substance Use Type: does not use Exam Initial Vital Signs Initial Vital Signs: Vital Signs Pulse Oximetry 91 11/25/23 12:48 HENMT Head: normal to inspection and normocephalic Back/Spine/Pelvis Thoracic/Lumbar Spine: No thoracic spinal tenderness Other: Discomfort with palpation of bilateral sacrum areas and also lower back. Neuro Sensory Exam: no sensory deficits noted Extrem General: edema Course Orders Ordered: ED Orders 11/25/23 13:01 Consult to [employer] - [employer] Stat XR lumbar spine 2-3V Stat XR pelvis 1-2V Stat XR sacrum coccyx min 2V Stat Discontinued Medications Hydrocodone Bitart/Acetaminophen (Hydrocodone/Acet 5/325 Tablet) 1 tab PO NOW ONE Stop: 11/25/23 14:45 Last Admin: 11/25/23 14:51 Dose: 1 tab Documented By: KEIRA Vital Signs Vital signs: Vital Signs - 8 hr 11/25/23 12:48 11/25/23 12:51 11/25/23 12:51 Temperature Pulse Rate 61 Respiratory Rate Blood Pressure 95/62 Pulse Oximetry 91 Oxygen Delivery Method 11/25/23 12:53 11/25/23 12:53 11/25/23 12:55 Temperature 97.7 F Pulse Rate 80 80 Respiratory Rate 18 Blood Pressure 99/61 95/63 Pulse Oximetry 97 96 Oxygen Delivery Method Room Air 11/25/23 13:00 11/25/23 13:00 11/25/23 13:30 Temperature Pulse Rate 81 Respiratory Rate 18 15 Blood Pressure 95/63 Pulse Oximetry 98 96 Oxygen Delivery Method 11/25/23 13:33 11/25/23 13:33 11/25/23 14:00 Temperature Pulse Rate 79 Respiratory Rate 13 Blood Pressure 109/62 109/70 Pulse Oximetry 98 Oxygen Delivery Method 11/25/23 14:00 11/25/23 14:30 11/25/23 14:30 Temperature Pulse Rate 79 79 Respiratory Rate 20 18 Blood Pressure 104/68 Pulse Oximetry 98 98 Oxygen Delivery Method 11/25/23 15:00 11/25/23 15:00 11/25/23 15:30 Temperature Pulse Rate 92 H Respiratory Rate 22 Blood Pressure 101/68 90/64 Pulse Oximetry 98 Oxygen Delivery Method 11/25/23 15:30 Temperature Pulse Rate 77 Respiratory Rate 19 Blood Pressure Pulse Oximetry 96 Oxygen Delivery Method Medical Decision Making Imaging Data Sacrum x-ray: Radiologist's Impression: PROCEDURE: XR SACRUM COCCYX MIN 2V INDICATIONS: pain after fall TECHNIQUE: 3 views of the sacrum and coccyx acquired. COMPARISON: None. FINDINGS: Bones: No fractures or dislocations. No suspicious bony lesions. Soft tissues: Visualized bowel gas pattern is normal. No suspicious soft tissue densities. IMPRESSION: No visualized acute fracture or dislocation. However, if clinical concern and/or pain persist, short interval imaging followup in 7-10 days is recommended , as occult injury cannot be definitively excluded. Pelvis x-ray: Radiologist's Impression: PROCEDURE: XR PELVIS 1-2V INDICATIONS: pain after fall TECHNIQUE: 1 view(s) of the pelvis acquired. COMPARISON: [facility], XR PELVIS 1-2V, 12/03/2022, 20:47. FINDINGS: Bones: No fractures or dislocations. No suspicious bony lesions. Moderate to severe bilateral hip arthritic change. Degenerative changes are also present in the lower lumbar spine. Soft tissues: Visualized bowel gas pattern is normal. No suspicious soft tissue calcifications. IMPRESSION: No visualized acute fracture or dislocation. However, if clinical concern and/or pain persist, short interval imaging followup in 7-10 days is recommended, as occult injury cannot be definitively excluded. Lumbar spine x-ray: Radiologist's Impression: PROCEDURE: XR LUMBAR SPINE 2-3V INDICATIONS: LBP after fall TECHNIQUE: 3 views of the lumbar spine were acquired. COMPARISON: [facility], XR LUMBAR SPINE 2-3V, 09/11/2023, 11:20. FINDINGS: Bones: 5 [id number] vertebrae are present. There is normal bony alignment. Unchanged compression deformity at L3. Trace anterolisthesis of L3 on L4, trace retrolisthesis of L5 on S1. Multilevel degenerative disc and foraminal narrowing most severe at L4-5 and L5-S1. Soft tissues: Overlying bowel gas pattern is normal. No suspicious soft tissue calcifications. IMPRESSION: Stable L3 compression deformity. MDM Narrative Medical decision making narrative: Patient has had multiple falls over the past several weeks. His x-rays today show the old compression fracture in his back but no new fractures. Patient has been seen by social work. There is quite a bit of help at home. They are working with home health. After the [place] the patient seemed to tolerate this very well. He states his pain is much more controlled. We will send him home with a prescription for this. He was given return precautions and follow-up instructions. He expressed understanding and agreement. Discharge Plan Departure Patient Disposition: Home Clinical Impression: Compression fracture of L3 vertebra Instructions: DI for Vertebral Fracture, How to Prevent Falls Activity Restrictions/Additional Instructions: I do recommend that you take all of your medications as directed. Contact your primary care doctor for follow-up. Return to the emergency department for new or worsening symptoms. Prescriptions: New hydrocodone-acetaminophen 5-325 mg tablet 1 tab PO Q4-6H PRN (Reason: pain) Qty: 30 0RF docusate sodium [Colace] 100 mg capsule 100 mg PO BID PRN (Reason: constipation) Qty: 30 0RF No Action warfarin 5 mg tablet See Rx Instructions .ROUTE .COMPLEX Patient Comments: 5mg on mon, tue, thurs, fri, and sat 2.5mg on sun and wed Rx Instructions: 5mg on mon, tue, thurs, fri, and sat 2.5mg on sun and wed latanoprost 0.005 % drops atorvastatin 40 mg tablet amiodarone 200 mg tablet spironolactone 25 mg tablet tamsulosin 0.4 mg capsule PO warfarin 5 mg tablet bumetanide 1 mg tablet metformin 500 mg tablet extended release 24 hr PO finasteride 5 mg tablet Jardiance 25 mg tablet Referrals: Lindsay Chavarria MD [Primary Care Provider] - Stand Alone Forms: Patient Portal/API
--- NOTE | 2023-11-25 13:01 | DI.RAD.S_ITS ---
PROCEDURE: XR PELVIS 1-2V INDICATIONS: pain after fall TECHNIQUE: 1 view(s) of the pelvis acquired. COMPARISON: [facility], [place], XR PELVIS 1-2V, 12/03/2022, 20:47. FINDINGS: Bones: No fractures or dislocations. No suspicious bony lesions. Moderate to severe bilateral hip arthritic change. Degenerative changes are also present in the lower lumbar spine. Soft tissues: Visualized bowel gas pattern is normal. No suspicious soft tissue calcifications. IMPRESSION: No visualized acute fracture or dislocation. However, if clinical concern and/or pain persist, short interval imaging followup in 7-10 days is recommended, as occult injury cannot be definitively excluded. Dictated by: Sophia Victor M.D. on 11/25/2023 at 13:52 Approved by: Sophia Victor M.D. on 11/25/2023 at 13:53
--- NOTE | 2023-11-25 14:16 | CM.SWNOTE ---
ED HAND DEICER ELEMENT WINDER Note HAND DEICER ELEMENT WINDER receives consult from ED provider to discuss home health at home with patient and family. Patient is 83 y/o male who presents to ED via EMS due to recent fall and back pain. Patient has hx of LANCE, CHF, GLFs, AFIB, CAD, per xray patient has stable L3 compression deformity. Patient's PCP is Dr. Lindsay Chavarria, patient has Medicare and [employer] Medicare. Patient states he is DNR/DNI. HAND DEICER ELEMENT WINDER enters room to meet with patient, present in room is patient's spouse and daughter Diana. Patient presents as A/Ox4, patient is difficult to understand when talking. It is reported that patient's daughter and grandchildren live nearby. It is reported that patient uses seated FWW at baseline and they are borrowing a wheelchair from the [employer]. It is reported that patient has about 5 GLFs a week. It is reported that transfers are painful and difficult for patient and his pain has not been managed well with tramodol due to the hallucination side affects. Patient endorses that he has his drivers license but has not been driving, patient states he receives rides from spouse. It is reported that the family just hired caregivers through [address] [place] [address], and caregivers will be there 5 days a week 6 hours a day. HAND DEICER ELEMENT WINDER discusses the option of HH, patient endorses interest but family states that patient has such difficulty moving right now due to pain that they want to start with caregivers and addressing patient's pain. HAND DEICER ELEMENT WINDER discusses that a HH referral can be made from PCP or an ED visit. It is reported that patient just had recent PCP appt earlier this month. Patient and family deny further needs from HAND DEICER ELEMENT WINDER at this time. HAND DEICER ELEMENT WINDER reviews this with ED provider, ED provider to discuss pain management with patient and family. Plan: patient to d/c to home upon medical clearance with family, patient to f/u with new caregivers and PCP. KERI Orantes
[2023-11-25] MEDS: HYDROCODONE/ACET 5/325 TABLET 1 TAB PO (14:51)
== END 2023-11-25 16:08 | disposition home or self-care (01) ==
PROVIDERS: Emergency Provider Emergency Medicine; PCP Internal Medicine
DX: S32.039D Unspecified fracture of third lumbar vertebra, subsequent encounter for fracture with routine healing (principal); W19.XXXD Unspecified fall, subsequent encounter; Z91.81 History of falling
CPT/HCPCS: 72100; 72170; 72220; 99283; 99284

== ENCOUNTER 2023-11-27 17:42 | Inpatient (IN) | payer MEDICARE, SELFPAY ==
[2023-11-27] VITALS (20 sets, daily range): BP systolic 82–97; BP diastolic 50–67; PULSE 69–76; RESP 12–25; TEMP 36.2; O2SAT 93–100; BMI 23.0
--- NOTE | 2023-11-27 18:19 | ED_ITS ---
HPI - General Adult General Chief complaint: Weakness Stated complaint: back pain- unable to stand Time Seen by Provider: 11/27/23 17:55 Source: patient and EMS Mode of arrival: EMS History of Present Illness HPI narrative: 83-year-old male with history of AFib, coronary disease, diabetes, AICD in place, chronic kidney disease presents by EMS from home for low back pain and generalized weakness. Patient is seen 2 days prior for back pain. Patient has previously been diagnosed with a lower back compression fracture, but in the last several days he has fallen frequently and his pain and back spasms have worsened. Family states that while he was able to move his legs when lying down he was unable to bear any weight whatsoever to walk and he was practically weight trying to transfer. Today he was caught on the toilet and they were unable to get him up and so they called 911. EMS noted hypotension on arrival with systolic blood pressure in the 80s. On arrival patient's blood pressure is systolic 90s, which patient states is his baseline and normal for him. He reports lumbar back pain but denies any other complaints. 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 Related Data Home Medications Medication Instructions Recorded Confirmed amiodarone 200 mg tablet (Pacerone) 100 mg PO DAILY 05/21/21 11/28/23 finasteride 5 mg tablet (Proscar) 5 mg PO DAILY 05/21/21 11/28/23 latanoprost 0.005 % eye drops 1 drp EYE-BOTH DAILY 05/21/21 11/28/23 (Xalatan) spironolactone 25 mg tablet 25 mg PO DAILY 05/21/21 11/28/23 (Aldactone) tamsulosin 0.4 mg capsule (Flomax) 0.4 mg PO DAILY 05/21/21 11/28/23 metoprolol succinate 25 mg 25 mg PO BID 11/28/23 11/28/23 tablet,extended release 24 hr torsemide 20 mg tablet 20 mg PO DAILY 11/28/23 11/28/23 Allergies Allergy/AdvReac Type Severity Reaction Status Date / Time adhesive AdvReac Mild Verified 11/27/23 17:48 Review of Systems Review of Systems Narrative: See HPI Patient History Medical History Coronary artery disease Atrial fibrillation Anticoagulated Social History household members: spouse Smoking Status: Unknown if ever smoked Smoking Status: Unknown if ever smoked alcohol intake frequency: holidays/special occasions only Substance Use Type: does not use Exam Initial Vital Signs Initial Vital Signs: Vital Signs Blood Pressure 90/60 11/27/23 17:46 Const: Awake, alert, uncomfortable, in pain, debilitated, frail Cardiac: Irregularly irregular RESP: unlabored, clear bilaterally, no wheezing MSK: Lumbar back pain, no step-offs, able to move lower extremities Skin: Warm, Dry, intact, no rashes Neuro: AO x3, CN II-XII grossly intact, moves all extremities Course Orders Ordered: ED Orders 11/27/23 18:04 Consult to HOUSE DIRECTOR - Skip Load Driver Stat 11/27/23 19:15 CBC Auto Diff [Complete Blood Count AUTO DIFF] Stat CMP [Comprehensive Metabolic Panel] Stat 11/27/23 19:21 UA Complete [Urinalysis and Microscopic] Stat Urine Culture Stat 11/27/23 19:41 CT lumbar spine wo con Stat Acetaminophen (Acetaminophen 325 Mg Tablet) 650 mg PO Q6H PRN PRN Reason: Fever/Mild Pain (1-3) Albuterol (Albuterol 2.5 Mg/3 Ml Neb (Adult)) 2.5 mg INH [id number] PRN PRN Reason: Dyspnea Amiodarone HCl (Amiodarone 200 Mg Tablet) 100 mg PO DAILY JOAN Bisacodyl (Bisacodyl 5 Mg Tablet) 10 mg PO DAILY PRN PRN Reason: Constipation Calcium Carbonate (Calcium Carbonate 500 Mg Tab) 1,000 mg PO Q4HR PRN PRN Reason: Dyspepsia Cyclobenzaprine HCl (Cyclobenzaprine 10 Mg Tablet) 5 mg PO Q8HR JOAN Finasteride (Finasteride 5 Mg Tablet) 5 mg PO DAILY JOAN Hydralazine HCl (Hydralazine 20 Mg/Ml Vial) 10 mg IV Q6HR PRN PRN Reason: SBP>= 160 or DBP >=110 Hydromorphone HCl (Hydromorphone 0.5 Mg Inj) 0.5 mg IV Q2H PRN PRN Reason: Pain, Severe (7-10) Latanoprost (Latanoprost 0.005% Ophth 2.5 Ml) 1 drops EYE-BOTH BEDTIME JOAN Lorazepam (Lorazepam 2 Mg/Ml Inj) 0.25 mg IV Q4HR PRN PRN Reason: Anxiety Melatonin (Melatonin 3 Mg Tablet) 9 mg PO BEDTIME PRN PRN Reason: insomnia Metoprolol Succinate (Metoprolol Er 25 Mg Tablet) 25 mg PO BID JOAN Naloxone HCl (Naloxone 0.4 Mg/Ml Vial) 0.2 mg IV Q2MIN PRN PRN Reason: Opiate Reversal Ondansetron HCl (Ondansetron 4 Mg/2 Ml Inj) 4 mg IV Q8HR PRN PRN Reason: Nausea And Vomiting Oxycodone HCl (Oxycodone Ir 5 Mg Tablet) 5 mg PO Q3H PRN PRN Reason: Pain, Moderate (4-6) Oxycodone HCl (Oxycodone Ir 10 Mg Tablet) 10 mg PO Q3H PRN PRN Reason: Pain, Severe (7-10) Sennosides (Sennosides 8.6 Mg Tablet) 17.2 mg PO BEDTIME JOAN Spironolactone (Spironolactone 25 Mg Tablet) 25 mg PO DAILY JOAN Tamsulosin HCl (Tamsulosin 0.4 Mg Capsule) 0.4 mg PO DAILY JOAN Torsemide (Torsemide 10 Mg Tablet) 20 mg PO DAILY JOAN Discontinued Medications Fentanyl (Fentanyl 100 Mcg/2 Ml Inj) 75 mcg 1 mcg/kg (75 mcg) IV NOW ONE Stop: 11/27/23 19:28 Last Admin: 11/27/23 19:58 Dose: 75 mcg Documented By: GC Sodium Chloride (Normal Saline 0.9%) 1,000 mls @ 1,000 mls/hr IV BOLUS ONE Stop: 11/27/23 19:02 Last Infusion: 11/27/23 20:10 Dose: Infused Documented By: Admin: 11/27/23 19:20 Dose: 1,000 mls/hr Documented By: BETTY Acetaminophen (Ofirmev) 1,000 mg in 100 mls @ 400 mls/hr IV NOW ONE Stop: 11/27/23 19:41 Last Infusion: 11/27/23 20:15 Dose: Infused Documented By: Admin: 11/27/23 19:57 Dose: 400 mls/hr Documented By: GC Lidocaine (Lidocaine 5% Patch) 1 each TOP NOW ONE Stop: 11/27/23 19:28 Last Admin: 11/27/23 20:30 Dose: 1 each Documented By: LUIS Vital Signs Vital signs: Vital Signs - 8 hr 11/27/23 18:30 11/27/23 18:31 11/27/23 18:31 Pulse Rate 70 71 Respiratory Rate 15 19 Blood Pressure 92/59 L Pulse Oximetry 98 99 11/27/23 19:00 11/27/23 19:00 11/27/23 19:30 Pulse Rate 73 Respiratory Rate 24 Blood Pressure 95/67 94/64 Pulse Oximetry 100 11/27/23 19:30 11/27/23 20:00 11/27/23 20:00 Pulse Rate 72 74 Respiratory Rate 12 16 Blood Pressure 91/67 Pulse Oximetry 99 97 11/27/23 20:21 11/27/23 20:21 11/27/23 20:30 Pulse Rate 72 71 Respiratory Rate 25 H 15 Blood Pressure 92/55 L Pulse Oximetry 95 94 11/27/23 20:30 11/27/23 21:00 11/27/23 21:01 Pulse Rate 71 72 Respiratory Rate 17 19 Blood Pressure 89/64 L Pulse Oximetry 95 96 11/27/23 21:01 11/27/23 21:30 11/27/23 21:30 Pulse Rate 69 Respiratory Rate 18 Blood Pressure 97/67 85/50 L Pulse Oximetry 96 11/27/23 22:00 11/27/23 22:00 11/27/23 22:30 Pulse Rate 69 71 Respiratory Rate 23 16 Blood Pressure 84/51 L Pulse Oximetry 94 96 11/27/23 22:30 11/27/23 23:00 11/27/23 23:00 Pulse Rate 69 Respiratory Rate 16 Blood Pressure 82/54 L 91/50 L Pulse Oximetry 95 Medical Decision Making Lab Data 11/27/23 19:15 11/27/23 19:15 Labs: Lab Results 11/27/23 11/27/23 Range/Units 19:15 19:21 WBC 6.8 (4.5-11.0) X10^3/uL RBC 3.58 L (4.5-5.9) X10^6/uL Hgb 12.3 L (13.5-17.5) g/dL Hct 36.0 L (41-53) % MCV 100.5 H (80-100) fL MCH 34.3 H (26-34) PG MCHC 34.1 (30-36) % RDW 15.5 H (11.6-14.8) % Plt Count 155 (150-400) X10^3/uL Neut % (Auto) 55.9 (50-75) % Lymph % (Auto) 29.6 (25-40) % [place] % (Auto) 11.9 (3-14) % Eos % (Auto) 2.1 (2-4) % Baso % (Auto) 0.5 (0-2) % Neut # (Auto) 3800 (6760-8092) /uL Lymph # (Auto) 2000 (4666-1425) /uL [place] # (Auto) 800 (0-900) /uL Eos # (Auto) 100 (0-450) /uL Baso # (Auto) 0 (0-100) /uL Sodium 137 (137-145) mmol/L Potassium 4.8 (3.4-5.1) mmol/L Chloride 101 (98-107) mmol/L Carbon Dioxide 31 (22-32) mmol/L BUN 36 H (9-20) mg/dL Creatinine 1.87 H (0.66-1.25) mg/dL Estimated GFR 35 L (>60) mL/min BUN/Creatinine Ratio 19.3 (6-22) Glucose 97 (80-110) mg/dL Calcium 10.4 H (8.4-10.2) mg/dL Total Bilirubin 1.3 (0.2-1.3) mg/dL AST 24 (17-59) IU/L ALT 15 (<50) IU/L Alkaline Phosphatase 90 (38-126) U/L Total Protein 7.3 (6.3-8.2) g/dL Albumin 3.8 (3.5-5.0) g/dL Globulin 3.5 (1.7-4.1) g/dL Albumin/Globulin Ratio 1.1 (1.0-2.8) Urine Color Yellow Urine Appearance Clear Urine pH 6.5 (4.5-8.0) Ur Specific [place] 1.010 (1.000-1.035) Urine Protein Negative (Negative) Urine Glucose (UA) Negative (Negative) g/dL Urine Ketones Negative (NEGATIVE) Urine Occult Blood 3+ H (Negative) Urine Nitrate Negative (Negative) Urine Bilirubin Negative (NEGATIVE) Urine Urobilinogen 0.2 (0.2) E.U./dL Ur Leukocyte Esterase 1+ H (NEGATIVE) Urine RBC 10-30/hpf H (0-5/HPF) Urine WBC 5-10/hpf H (0-5/HPF) Ur Squamous Epith Cells None seen (0-5/HPF) Urine Bacteria None seen (None) Hyaline Casts 0-1/lpf (None) Ur Culture Indicated? Specimen cultured Vol Urine Centrifuged 10ml (spun) Imaging Data CT - cervical spine: Radiologist's Impression: PROCEDURE: CT LUMBAR SPINE WO CON INDICATIONS: SEVERE LUMBAR PAIN, CAN'T WALK, FREQUENT FALLS TECHNIQUE: Noncontrast 3 mm thick sections acquired from the T12 level to the sacrum. Sagittal and coronal reformats were constructed. For radiation dose reduction, the following was used: automated exposure control. COMPARISON: [facility], CR, XR LUMBAR SPINE 2-3V, 11/25/2023, 13:09. FINDINGS: Image quality: Excellent. Bones: There is straightening of normal lumbar lordosis. There is suggestion of acute on chronic comminuted compression fracture involving L3 vertebral body with interval further loss of vertebral body height, now measures up to 60% loss of L3 vertebral body height. There is interval development of superior endplate compression fracture at L4 level with up to 50% loss of L4 vertebral body height. No other compression fracture is seen. No suspicious bony lesions. T12-L1: Degenerative endplate changes are seen. No significant disc bulge, canal stenosis or neural foraminal narrowing. L1-L2: Loss of disc height and degenerative endplate changes are seen. No significant disc bulge, canal stenosis or neural foraminal narrowing. L2-L3: Loss of disc height and degenerative endplate changes are seen. Broad- based disc bulge and bilateral facet arthrosis causing severe central canal stenosis and bilateral neural foraminal narrowing. L3-L4: Loss of disc height and degenerative endplate changes are seen. Vacuum disc phenomenon is also noted. Broad-based disc bulge and bilateral facet arthrosis with hypertrophy of ligamentum flavum causing severe central canal stenosis and bilateral neural foraminal narrowing. L4-L5: Loss of disc height and degenerative endplate changes are seen. Broad- based disc bulge and bilateral facet arthrosis with moderate central canal stenosis and moderate to severe bilateral neural foraminal narrowing. L5-S1: Loss of disc height and vacuum disc phenomenon is seen. Broad-based disc bulge and bilateral facet arthrosis causing moderate central canal stenosis and bilateral neural foraminal narrowing. Soft tissues: No retroperitoneal masses or hematomas. Visualized aorta is normal in caliber. IMPRESSION: 1. Interval development of superior endplate compression deformity at L4 level with up to 50% loss of L4 vertebral body height. Interval further loss of L3 vertebral body height compared to 11/25/2023 study now with up to 60% loss of L3 vertebral body height. No other lumbar spine fracture or dislocation. 2. Degenerative disc disease throughout lumbar spine causing various degrees of central canal stenosis and bilateral neural foraminal narrowing most notably involving L3-4 and L4-5 levels as described above. Dictated by: Ranjith Borja M.D. on 11/27/2023 at 20:52 Approved by: Ranjith Borja M.D. on 11/27/2023 at 20:58 MDM Narrative Medical decision making narrative: Uncomfortable patient presenting for worsening of lumbar back pain. Daughter states that patient has had fall since his visit to the ER 2 days prior, however he did not hit his head and was assisted to the ground by his . No focal neurologic deficit. Noted to be borderline hypotensive on arrival, however this is reported to be his normal baseline blood pressure. Laboratory work is reviewed, chronic kidney disease seems to be at baseline. No leukocytosis, normal hemoglobin. Pain controlled with IV narcotics and lidocaine patch. CT imaging of the lumbar spine shows 60% compression fracture at L3 and 50% at L4. Images sent to [place] for neurosurgical consultation. Case discussed with Dr. Jones at [facility] neurosurgery. Patient does not seem to be at imminent risk of neurological compromise at this time, however if patient's family is adamant that they would like to pursue treatment then he was happy to accept patient for transfer, however his surgical prognosis is quite poor and he is a very poor surgical candidate due to his numerous comorbidities and age as well as general frailty. On the other hand patient's bone density indicates that he will likely not heal on his own and may be in chronic pain. Patient's care as well as neurosurgical recommendation discussed with and daughter at bedside. They state that the ultimate goal is to get patient home so that he may be comfortable, and they do not want to pursue surgery at this time. They have talked about possible palliative care but they are currently unable to care for the patient due to his extreme pain and inability to transfer. Patient to be admitted to the hospital for further pain control and treatment. Discharge Plan Departure Patient Disposition: Admitted As Inpatient Clinical Impression: Compression fracture of L3 vertebra, Intractable back pain Admit Date/Time: 11/27/23 23:14 Admit Provider: Umer Argueta
--- NOTE | 2023-11-27 18:48 | CM.IDA ---
Initial DCP Assessment Note Patient is 83 y/o male who presents to ED via EMS this evening due to back pain, and recent GLF, inability to stand and walk. Patient presented to ED via EMS on 11/25/23 for similar concerns and discharged to home with pain medication and family to set up caregiver services. Patient's PCP is Dr. Lindsay Chavarria, Patient has Medicare and AARP insurance. Patient has hx of LANCE, CHF, GLFs, AFIB, CAD, per xray from 11/25/23 patient has L3 compression deformity. This PRIVATE EQUITY ANALYST met with patient and family on 11/25/23, their goal was to keep patient at home, manage patient's pain and in the process of hiring a caregiver through [facility] for 5 days a week, 6 hours a day. PRIVATE EQUITY ANALYST discussed HH and it was declined at this time, PRIVATE EQUITY ANALYST encouraged patient and family to f/u with PCP if seeking a referral. Family reports that the caregivers are not available to start services with caregiver for the next few weeks and report concern for patient's safety at home. In triage, patient reports SI due to concern for his ongoing back pain without relief, patient stated to RN that he has a gun and he would use it if back pain continues. Patient also stated that he has grandkids and does not want to act on these thoughts. PRIVATE EQUITY ANALYST discusses SNF rehab with daughter and she indicates agreement and understanding with preference for [facility]. Daughter reports that patient's back pain has not been managed with rx prescribed from recent ED visit. PRIVATE EQUITY ANALYST enters room to meet with patient, present in room is patient's spouse and daughter Diana. Patient presents as A/Ox4, patient is difficult to understand when talking. It is reported that patient's daughter and grandchildren live nearby. It is reported that patient uses seated FWW at baseline and they are borrowing a wheelchair from the [employer]. It is reported that patient has about 5 GLFs a week. It is reported that transfers are painful and difficult for patient and his pain has not been managed well with tramodol due to the hallucination side affects in the past. PRIVATE EQUITY ANALYST reviews patient with ED provider, PRIVATE EQUITY ANALYST recommends PT consult and patient's need for SNF rehab referral. ED provider states she will evaluate patient and likely review patient with hospitalist for admission due to concern for intractable back pain and compression fracture. This PRIVATE EQUITY ANALYST calls Kasey at [facility] and leaves VM regarding referral for patient, pending PT. Plan: ED provider to medically evaluate patient, patient will need PT eval which is not available until tomorrow. Plan A: SNF rehab to [facility] EKRI Orantes Discharge Planning/Care Management CM Discharge Assessment Start: 11/27/23 18:10 Freq: Status: Active Protocol: Document 11/27/23 18:38 LN (Rec: 11/27/23 18:46 LN [id number]) Discharge Planning Assessment Assigned Drafter Directional Survey KERI Ruth Advance Directives? Yes Advance Directives on File Yes History Provided By Patient,Family Member,Medical Record Has Patient been admitted in last 30 No days? Prior Living Arrangements House Household Members spouse Type of transporation used prior to Relies on Others admit Independent with ADL's No Is patient alert and oriented? Yes Needs Assistance With Bathing,Grooming,Meal Prep, Managing Medications,Home Chores / Shopping DME Already Rented / Owned Wheelchair,FWW / Walker Patient/Family Preference [facility] Facility Comment Family preference is [facility] SNF rehab Referrals Initiated [facility] If patient plan is SNF: Has PASSR been No completed? SNF/HH Preference Options discussed verbally, preference is to stay in town at [facility] rehab. Has Agency SNF been contacted Yes Comment Left with [facility] intake. Review Status In Process Please Provide Date Initial DC 11/27/23 Assessment Was Performed
[2023-11-27] MEDS: SODIUM CHLORIDE 0.9% 1,000 ML 1000 ML IV (19:20)
--- NOTE | 2023-11-27 19:24 | PC.NURSE ---
Pt states that he is experiencing 7/10 pain that starts in his lower back and feels like cramping. Pt reports that the pain wraps around to the front. a&Ox4. Dr Yip notified.
[2023-11-27 19:30] LABS: Add Manual Diff / Slide Review NO; Basophils Absolute Auto 0 /uL (0-100); Basophils Percent Auto 0.5 % (0-2); Eosinophils Absolute Auto 100 /uL (0-450); Eosinophils Percent Auto 2.1 % (2-4); Hemoglobin 12.3 g/dL (13.5-17.5); Lymphocytes Absolute Auto 2000 /uL (1100-4500); Lymphocytes Percent Auto 29.6 % (25-40); Mean Corpuscular HGB Conc 34.1 % (30-36); Mean Corpuscular Hemoglobin 34.3 PG (26-34); Mean Corpuscular Volume 100.5 fL (80-100); Monocytes Absolute Auto 800 /uL (0-900); Monocytes Percent Auto 11.9 % (3-14); Neutrophils Absolute Auto 3800 /uL (1500-7000); Neutrophils Percent Auto 55.9 % (50-75); Platelet Count 155 X10^3/uL (150-400); Red Blood Cell Count 3.58 X10^6/uL (4.5-5.9); Red Cell Distribution Width 15.5 % (11.6-14.8); White Blood Cell Count 6.8 X10^3/uL (4.5-11.0)
[2023-11-27 19:32] LABS: Appearance Urine UA CLEAR; Bilirubin Urine UA NEGATIVE (NEGATIVE); Color Urine UA YELLOW; Glucose Urine UA NEGATIVE (Negative); Ketones Urine UA NEGATIVE (NEGATIVE); Leukocyte Esterase Urine UA 1+ (NEGATIVE); Nitrite Urine UA NEGATIVE (Negative); Occult Blood Urine UA 3+ (Negative); Protein Urine UA NEGATIVE (Negative); Urobilinogen Urine UA 0.2 E.U./dL (0.2); pH Urine UA 6.5 (4.5-8.0)
--- NOTE | 2023-11-27 19:41 | DI.CT.S_ITS ---
PROCEDURE: CT LUMBAR SPINE WO CON INDICATIONS: SEVERE LUMBAR PAIN, CAN'T WALK, FREQUENT FALLS TECHNIQUE: Noncontrast 3 mm thick sections acquired from the T12 level to the sacrum. Sagittal and coronal reformats were constructed. For radiation dose reduction, the following was used: automated exposure control. COMPARISON: [facility], CR, XR LUMBAR SPINE 2-3V, 11/25/2023, 13:09. FINDINGS: Image quality: Excellent. Bones: There is straightening of normal lumbar lordosis. There is suggestion of acute on chronic comminuted compression fracture involving L3 vertebral body with interval further loss of vertebral body height, now measures up to 60% loss of L3 vertebral body height. There is interval development of superior endplate compression fracture at L4 level with up to 50% loss of L4 vertebral body height. No other compression fracture is seen. No suspicious bony lesions. T12-L1: Degenerative endplate changes are seen. No significant disc bulge, canal stenosis or neural foraminal narrowing. L1-L2: Loss of disc height and degenerative endplate changes are seen. No significant disc bulge, canal stenosis or neural foraminal narrowing. L2-L3: Loss of disc height and degenerative endplate changes are seen. Broad-based disc bulge and bilateral facet arthrosis causing severe central canal stenosis and bilateral neural foraminal narrowing. L3-L4: Loss of disc height and degenerative endplate changes are seen. Vacuum disc phenomenon is also noted. Broad-based disc bulge and bilateral facet arthrosis with hypertrophy of ligamentum flavum causing severe central canal stenosis and bilateral neural foraminal narrowing. L4-L5: Loss of disc height and degenerative endplate changes are seen. Broad-based disc bulge and bilateral facet arthrosis with moderate central canal stenosis and moderate to severe bilateral neural foraminal narrowing. L5-S1: Loss of disc height and vacuum disc phenomenon is seen. Broad-based disc bulge and bilateral facet arthrosis causing moderate central canal stenosis and bilateral neural foraminal narrowing. Soft tissues: No retroperitoneal masses or hematomas. Visualized aorta is normal in caliber. IMPRESSION: 1. Interval development of superior endplate compression deformity at L4 level with up to 50% loss of L4 vertebral body height. Interval further loss of L3 vertebral body height compared to 11/25/2023 study now with up to 60% loss of L3 vertebral body height. No other lumbar spine fracture or dislocation. 2. Degenerative disc disease throughout lumbar spine causing various degrees of central canal stenosis and bilateral neural foraminal narrowing most notably involving L3-4 and L4-5 levels as described above. Dictated by: Ranjith Borja M.D. on 11/27/2023 at 20:52 Approved by: Ranjith Borja M.D. on 11/27/2023 at 20:58
[2023-11-27 19:56] LABS: Alanine Aminotransferase 15 IU/L (<50); Albumin 3.8 g/dL (3.5-5.0); Albumin Globulin Ratio 1.1 (1.0-2.8); Alkaline Phosphatase 90 U/L (38-126); Aspartate Aminotransferase 24 IU/L (17-59); BUN Creatinine Ratio 19.3 (6-22); Bilirubin Total 1.3 mg/dL (0.2-1.3); Blood Urea Nitrogen 36 mg/dL (9-20); Calcium 10.4 mg/dL (8.4-10.2); Carbon Dioxide 31 mmol/L (22-32); Chloride 101 mmol/L (98-107); Estimated Glomerular Filt Rate 35 mL/min (>60); Globulin 3.5 g/dL (1.7-4.1); Glucose 97 mg/dL (80-110); HEMOLYSIS < 15 (0-50); Potassium 4.8 mmol/L (3.4-5.1); Sodium 137 mmol/L (137-145); Total Protein 7.3 g/dL (6.3-8.2)
[2023-11-27] MEDS: ACETAMINOPHEN IV 1,000 MG/100 ML VIAL 400 MG IV (19:57)
[2023-11-27] MEDS: fentaNYL 100 MCG/2 ML INJ 75 MCG IV (19:58)
[2023-11-27 20:01] LABS: Bacteria Urine None Seen; Culture Indicated Urine Specimen Cultured; Hyaline Casts Urine 0-1/LPF; RBC Urine 10-30/HPF (0-5/HPF); Squamous Epithelial Cell Urine None Seen (0-5/HPF); Urine Volume 10mL (spun); WBC Urine 5-10/HPF (0-5/HPF)
[2023-11-27] MEDS: LIDOCAINE 5% PATCH 1 EACH TOP (20:30)
--- NOTE | 2023-11-27 23:25 | PC.NURSE ---
Hearing aids in patient's ears, bakery pastry internship placed in patient belonging bag with lantoprost eye drops and med list.
[2023-11-28] VITALS: BP 92/65; PULSE 75; RESP 15; TEMP 36.6; O2SAT 95
[2023-11-28 00:09] VITALS: BMI 23.0
--- NOTE | 2023-11-28 01:11 | PM.HP.1 ---
History of Present Illness History of Present Illness Chief complaint: back pain- unable to stand Narrative: 82 years old male with history of atrial fibrillation, CAD with pacemaker/AICD, diabetes presented to the ER with intractable back pain. The patient was recently in the ED for similar symptoms after he fell. Denies any aqua inguina symptoms. Laboratory was unremarkable. UA shows WBC 5/10 but the patient denies any dysuria. CT scan of the lumbar spine shows multilevel loss of body weight of L4, L3 along with degenerative disc disease. The patient was given fentanyl 75 mcg, Tylenol 1 g IV, lidocaine patch and NS 1 L bolus in the ED. [facility] Medical History Coronary artery disease Atrial fibrillation Anticoagulated Social History household members: spouse Smoking Status: Unknown if ever smoked Meds Home Medications and Allergies Home Medications Medication Instructions Recorded Confirmed Type amiodarone 200 mg tablet (Pacerone) 100 mg PO DAILY 05/21/21 11/28/23 History finasteride 5 mg tablet (Proscar) 5 mg PO DAILY 05/21/21 11/28/23 History latanoprost 0.005 % eye drops 1 drp EYE-BOTH DAILY 05/21/21 11/28/23 History (Xalatan) spironolactone 25 mg tablet 25 mg PO DAILY 05/21/21 11/28/23 History (Aldactone) tamsulosin 0.4 mg capsule (Flomax) 0.4 mg PO DAILY 05/21/21 11/28/23 History metoprolol succinate 25 mg 25 mg PO BID 11/28/23 11/28/23 History tablet,extended release 24 hr torsemide 20 mg tablet 20 mg PO DAILY 11/28/23 11/28/23 History Allergies Allergy/AdvReac Type Severity Reaction Status Date / Time adhesive AdvReac Mild Verified 11/27/23 17:48 Review of Systems Review of Systems ROS: Yes All systems reviewed with the patient and are negative except as otherwise documented Constitutional Constitutional: Reports as per HPI and Reports system reviewed and no additional complaints, except as documented Eyes Eyes: Reports as per HPI and Reports system reviewed and no additional complaints, except as documented ENT Ears, Nose, Mouth, and Throat: Yes as per HPI and Yes system reviewed and no additional complaints, except as documented Cardiovascular Cardiovascular: Reports system reviewed and no additional complaints, except as documented Respiratory Respiratory: Reports system reviewed and no additional complaints, except as documented Gastrointestinal Gastrointestinal: Reports system reviewed and no additional complaints, except as documented Genitourinary Genitourinary: Reports system reviewed and no additional complaints, except as documented Musculoskeletal Musculoskeletal: Reports system reviewed and no additional complaints, except as documented, Reports abnormal gait and Reports numbness Neurologic Neurologic: Reports system reviewed and no additional complaints, except as documented, Reports abnormal gait, Reports confusion and Reports numbness Psychiatric Psychiatric: Reports system reviewed and no additional complaints, except as documented and Reports confusion Exam Vital Signs (past 8 hours): - 11/27/23 17:46 11/27/23 17:47 11/27/23 17:49 Temperature 97.1 F L Pulse Rate 74 76 Respiratory Rate 12 18 Blood Pressure 90/60 85/59 L Pulse Oximetry 98 98 Oxygen Delivery Method Room Air Oxygen Flow Rate 11/27/23 18:00 11/27/23 18:00 11/27/23 18:30 Temperature Pulse Rate 70 70 Respiratory Rate 12 15 Blood Pressure 92/60 Pulse Oximetry 100 98 Oxygen Delivery Method Oxygen Flow Rate 11/27/23 18:31 11/27/23 18:31 11/27/23 19:00 Temperature Pulse Rate 71 73 Respiratory Rate 19 24 Blood Pressure 92/59 L Pulse Oximetry 99 100 Oxygen Delivery Method Oxygen Flow Rate 11/27/23 19:00 11/27/23 19:30 11/27/23 19:30 Temperature Pulse Rate 72 Respiratory Rate 12 Blood Pressure 95/67 94/64 Pulse Oximetry 99 Oxygen Delivery Method Oxygen Flow Rate 11/27/23 20:00 11/27/23 20:00 11/27/23 20:21 Temperature Pulse Rate 74 72 Respiratory Rate 16 25 H Blood Pressure 91/67 Pulse Oximetry 97 95 Oxygen Delivery Method Oxygen Flow Rate 11/27/23 20:21 11/27/23 20:30 11/27/23 20:30 Temperature Pulse Rate 71 Respiratory Rate 15 Blood Pressure 92/55 L 89/64 L Pulse Oximetry 94 Oxygen Delivery Method Oxygen Flow Rate 11/27/23 21:00 11/27/23 21:01 11/27/23 21:01 Temperature Pulse Rate 71 72 Respiratory Rate 17 19 Blood Pressure 97/67 Pulse Oximetry 95 96 Oxygen Delivery Method Oxygen Flow Rate 11/27/23 21:30 11/27/23 21:30 11/27/23 22:00 Temperature Pulse Rate 69 69 Respiratory Rate 18 23 Blood Pressure 85/50 L Pulse Oximetry 96 94 Oxygen Delivery Method Oxygen Flow Rate 11/27/23 22:00 11/27/23 22:30 11/27/23 22:30 Temperature Pulse Rate 71 Respiratory Rate 16 Blood Pressure 84/51 L 82/54 L Pulse Oximetry 96 Oxygen Delivery Method Oxygen Flow Rate 11/27/23 23:00 11/27/23 23:00 11/28/23 00:00 Temperature 98 F Pulse Rate 69 75 Respiratory Rate 16 15 Blood Pressure 91/50 L 92/65 Pulse Oximetry 95 95 Oxygen Delivery Method Oxygen Flow Rate 0 11/28/23 00:05 Temperature Pulse Rate Respiratory Rate Blood Pressure Pulse Oximetry Oxygen Delivery Method Room Air Oxygen Flow Rate Oxygen Delivery Method Room Air Oxygen Flow Rate 0 Const General: cooperative, comfortable and well developed Orientation: alert and oriented x3 HENMT Head: normal to inspection, normocephalic and atraumatic Face and sinus: normal facial exam Mouth: oral mucosae normal and moist mucous membranes Throat: posterior oropharynx normal Eyes General: appearance normal, both eyes and all related structures Pupils: PERRL EOM: EOM intact bilaterally Neck Neck: normal visual inspection and full ROM Chest Chest: normal inspection of the chest Resp Effort & Inspection: normal respiratory effort and able to speak in complete sentences Auscultation: clear to auscultation bilaterally Cardio Palpation: normal PMI Rate: regular rate Rhythm: regular rhythm Heart Sounds: S1 normal and S2 normal GI Inspection: normal to inspection Palpation: soft and no hepatosplenomegaly Auscultation: normal bowel sounds Skin General: no rashes or lesions noted Lesions: no lesions Rashes: no rashes Trauma: no lacerations or abrasions Neuro General: patient alert, patient awake, patient oriented x3 and no focal motor deficits Cranial Nerves: CN's II-XI intact bilaterally Cognition: normal cognition Speech: speech normal Gait: normal gait Motor: muscle tone normal throughout Sensory Exam: no sensory deficits noted Extrem General: full ROM and no calf tenderness Psych Appearance: grossly normal Mental Status: mental status grossly normal Speech and Movement: speech and movement normal Objective Labs 11/27/23 19:15 11/27/23 19:15 Labs: Laboratory Results - last 24 hr 11/27/23 11/27/23 19:15 19:21 WBC 6.8 RBC 3.58 L Hgb 12.3 L Hct 36.0 L MCV 100.5 H MCH 34.3 H MCHC 34.1 RDW 15.5 H Plt Count 155 Neut % (Auto) 55.9 Lymph % (Auto) 29.6 [place] % (Auto) 11.9 Eos % (Auto) 2.1 Baso % (Auto) 0.5 Neut # (Auto) 3800 Lymph # (Auto) 2000 [place] # (Auto) 800 Eos # (Auto) 100 Baso # (Auto) 0 Sodium 137 Potassium 4.8 Chloride 101 Carbon Dioxide 31 BUN 36 H Creatinine 1.87 H Estimated GFR 35 L BUN/Creatinine Ratio 19.3 Glucose 97 Calcium 10.4 H Total Bilirubin 1.3 AST 24 ALT 15 Alkaline Phosphatase 90 Total Protein 7.3 Albumin 3.8 Globulin 3.5 Albumin/Globulin Ratio 1.1 Urine Color Yellow Urine Appearance Clear Urine pH 6.5 Ur Specific [place] 1.010 Urine Protein Negative Urine Glucose (UA) Negative Urine Ketones Negative Urine Occult Blood 3+ H Urine Nitrate Negative Urine Bilirubin Negative Urine Urobilinogen 0.2 Ur Leukocyte Esterase 1+ H Urine RBC 10-30/hpf H Urine WBC 5-10/hpf H Ur Squamous Epith Cells None seen Urine Bacteria None seen Hyaline Casts 0-1/lpf Ur Culture Indicated? Specimen cultured Vol Urine Centrifuged 10ml (spun) Assessment & Plan Assessment & Plan narrative: Intractable lower back pain after recent fall. -Admit for observation -Pain medications as needed -PT and OT evaluation -Fall precaution -Discharge planning Atrial fibrillation, being on warfarin and stopped during last ED visit. -repeat INR and daily -Restart amiodarone and metoprolol BPH. Restart Flomax and Proscar. CHF. Restart metoprolol, torsemide, spironolactone Time Spent With Patient Time with patient: 50 to 69 minutes with 50% spent counseling/coordinating care Quality VTE Deep Vein Thrombosis/Pulmonary Embolism Present on Admission: No MIPS - Admit I confirm the patient?s Advance Care Plan is present, Code status is documented, Surrogate decision maker is in patient?s record [If Yes, STOP here]: Yes MIPS - Meds 'Current medications' to include all prescriptions, [id number] products, herbals, cannabis/cannabidiol products, and vitamin/mineral/dietary (nutritional) supplements. I have utilized all available resources to obtain, update, or review the patient?s current medications. [If Yes, STOP here]: Yes
[2023-11-28 02:11] LABS: INR 1.4 (0.9-1.3); Prothrombin Time 16.5 SECONDS (9.4-12.5)
[2023-11-28] MEDS: CYCLOBENZAPRINE 10 MG TABLET 5 MG PO ×3 (05:22→21:55)
[2023-11-28 06:00] VITALS: BP 91/62; PULSE 72; RESP 15; TEMP 36.4; O2SAT 93
--- NOTE | 2023-11-28 08:08 | P.PN_ITS ---
Subjective Subjective Interval history: From night doctor: 82 years old male with history of atrial fibrillation, CAD with pacemaker/AICD, diabetes presented to the ER with intractable back pain. The patient was recently in the ED for similar symptoms after he fell. Denies any aqua inguina symptoms. Laboratory was unremarkable. UA shows WBC 5/10 but the patient denies any dysuria. CT scan of the lumbar spine shows multilevel loss of body weight of L4, L3 along with degenerative disc disease. The patient was given fentanyl 75 mcg, Tylenol 1 g IV, lidocaine patch and NS 1 L bolus in the ED. Today: He was having a lot of pain since yesterday. No radiation, and no numbness of legs. He has been taking tramadol at home. He denies any nausea. Exam Vital Signs (past 8 hours): - 11/28/23 06:00 Temperature 97.5 F L Pulse Rate 72 Respiratory Rate 15 Blood Pressure 91/62 Pulse Oximetry 93 Oxygen Flow Rate 0 Oxygen Delivery Method Room Air Oxygen Flow Rate 0 Narrative Exam Narrative: NAD, alert and oriented. Fluent speech. Lungs are clear, normal rate and effort. Heart is regular, no murmur gallop or rub. Abdomen is soft, non distended. Extremities are free of edema. Objective Imaging Lumbar spine CT:: Radiologist's impression: IMPRESSION: 1. Interval development of superior endplate compression deformity at L4 level with up to 50% loss of L4 vertebral body height. Interval further loss of L3 vertebral body height compared to 11/25/2023 study now with up to 60% loss of L3 vertebral body height. No other lumbar spine fracture or dislocation. 2. Degenerative disc disease throughout lumbar spine causing various degrees of central canal stenosis and bilateral neural foraminal narrowing most notably involving L3-4 and L4-5 levels as described above. Dictated by: Ranjith Borja M.D. on 11/27/2023 at 20:52 Labs 11/27/23 19:15 11/27/23 19:15 Labs: Laboratory Results - last 24 hr 11/27/23 11/27/23 11/28/23 19:15 19:21 01:46 WBC 6.8 RBC 3.58 L Hgb 12.3 L Hct 36.0 L MCV 100.5 H MCH 34.3 H MCHC 34.1 RDW 15.5 H Plt Count 155 Neut % (Auto) 55.9 Lymph % (Auto) 29.6 [place] % (Auto) 11.9 Eos % (Auto) 2.1 Baso % (Auto) 0.5 Neut # (Auto) 3800 Lymph # (Auto) 2000 [place] # (Auto) 800 Eos # (Auto) 100 Baso # (Auto) 0 PT 16.5 H INR 1.4 H Sodium 137 Potassium 4.8 Chloride 101 Carbon Dioxide 31 BUN 36 H Creatinine 1.87 H Estimated GFR 35 L BUN/Creatinine Ratio 19.3 Glucose 97 Calcium 10.4 H Total Bilirubin 1.3 AST 24 ALT 15 Alkaline Phosphatase 90 Total Protein 7.3 Albumin 3.8 Globulin 3.5 Albumin/Globulin Ratio 1.1 Urine Color Yellow Urine Appearance Clear Urine pH 6.5 Ur Specific [place] 1.010 Urine Protein Negative Urine Glucose (UA) Negative Urine Ketones Negative Urine Occult Blood 3+ H Urine Nitrate Negative Urine Bilirubin Negative Urine Urobilinogen 0.2 Ur Leukocyte Esterase 1+ H Urine RBC 10-30/hpf H Urine WBC 5-10/hpf H Ur Squamous Epith Cells None seen Urine Bacteria None seen Hyaline Casts 0-1/lpf Ur Culture Indicated? Specimen cultured Vol Urine Centrifuged 10ml (spun) [facility] Medical History Coronary artery disease Atrial fibrillation Anticoagulated Social History household members: spouse Smoking Status: Unknown if ever smoked Assessment & Plan Assessment & Plan narrative: 1. L4 Compression fractue with intractable pain, present on admission and active. 2. Chronic atrial fibrillation, present on admission and stable. 3. BPH, present on admission and stable. 4. Chronic systolic CHF (unspecified type, no echo data available. He states depressed LVEF), present on admission and stable. PLAN: -oxycodone trial for pain control. -physical therapy referral and evaluation. -discharge planning. -discuss pros and cons of chronic anticoagulation with him. Estimated date of discharge is November 28, pending improvement of back pain and inability to ambulate. He lives in [place] with his . Quality VTE Deep Vein Thrombosis/Pulmonary Embolism Present on Admission: No
[2023-11-28] MEDS: AMIODARONE 200 MG TABLET 100 MG PO (08:26)
[2023-11-28] MEDS: FINASTERIDE 5 MG TABLET PO (08:26)
[2023-11-28] MEDS: SPIRONOLACTONE 25 MG TABLET PO (08:27)
[2023-11-28] MEDS: TAMSULOSIN 0.4 MG CAPSULE PO (08:27)
[2023-11-28] MEDS: TORSEMIDE 10 MG TABLET 20 MG PO (08:28)
[2023-11-28] MEDS: OXYCODONE IR 10 MG TABLET PO ×3 (09:31→19:04)
--- NOTE | 2023-11-28 10:25 | PT.IIE ---
Current Diagnoses Dorsalgia, unspecified (11/27/23) Medical History (Last Reviewed 11/28/23 @ 08:09 by Saud Hubbard MD) Anticoagulated Atrial fibrillation Coronary artery disease Physical Therapy Inpatient Evaluation/Re-Eval M1 PT/OT-IP Prior Functional Status Start: 11/28/23 11:54 Freq: NEEDED Status: Active Protocol: Document 11/28/23 10:25 AB (Rec: 11/28/23 12:08 AB [id number]) Medical Review Prior Functional Status Medical History Reviewed Yes Communication able to make needs known Mobility and Gait spouse and daughter provided most of pt's PLOF and home set up. stated that pt started using a 4WW last june after falling but has slowly been declining in function due to back pain and continued h/o falls (family stated that they cannot count the times pt had fallen) Social History Household Members spouse Living Arrangements House Number of Floors (Floors) One Floor Number of Stairs To Enter/Railing? 2 steps to enter without rails Home Environment Standard Height Toilet,Walk in Shower Home Equipment Four Wheel Walker,Raised Toilet Seat w/Armrests,Shower Seat with Backrest,Hand Held Shower Additional Social History Comment pt has a standard walker M2 PT-IP Current Condition Start: 11/28/23 11:54 Freq: NEEDED Status: Active Protocol: Document 11/28/23 10:25 AB (Rec: 11/28/23 12:08 AB [id number]) Physical Therapy Current Condition Current Condition Evaluation Date 11/28/23 Treatment Diagnosis intractable back pain; L3, L4 compression fx; difficulty in walking Onset Date 11/27/23 M3 PT-IP Subjective Start: 11/28/23 11:54 Freq: NEEDED Status: Active Protocol: Document 11/28/23 10:25 AB (Rec: 11/28/23 12:08 AB [id number]) Subjective Physical Therapy Visit Type Type Initial Evaluation Visit Start Time 10:25 Visit Stop Time 11:10 Number of BACON DE RINDER Visits 0 Physical Therapy Visit Comments Patient Comments c/o increase back pain Therapy Pain Assessment Pain When Pain Assessed At Rest Pain Present Pain Present Pain Reported Location Lower Back Intensity 10 Scale Used Numeric (0 - 10) Pain Management Techniques Apply Cold,Distraction, Modification of Treatment,Re- positioning,Timing of Activity with Medications M4 PT-IP Mobility and Gait Start: 11/28/23 11:54 Freq: NEEDED Status: Active Protocol: Document 11/28/23 10:25 AB (Rec: 11/28/23 12:08 AB [id number]) PT-Bed Mobility Assessment Rolling Type of Rolling Log Rolling Level of Assist Maximal Assistance,2 Person Assistance Supine to Sit Supine to Sit 2 Person Assistance,Bedrails PT-Transfer Assessment Sit to and From Stand Sit to and from Stand Maximum Assistance,2 Person Assistance,Use of Upper Extremities Equipment Transfer Assistive Device Gait Belt,Front Wheeled Walker Orthotic/Prosthetic Devices or Brace: No Transfers Transfer Destination Chair Transfer Technique Stand Step Pivot Transfer Ability Level of Assist Maximum Assistance,2 Person Assistance,Use of Upper Extremities Comments Mobility Comments pt supine in bed. spouse and daughter in room. spouse stated that pt needs have a brief change. NAC in room. assisted pt with brief change. pt completed rolling to R<>L max A x 1-2 and max cues. pt requiring frequent and increase rest breaks in between tasks due ot c/o back pain. obtained PLOF and home set up from pt's family. educated pt regarding his back precautions and log roll bed mobility. pt completed supine to sit log roll, max x 2 and max cues. pt able to sit on EOb SBA. BP: 97/69 O2sat 93% and MO: 68. per family, pt usually has low BP of 90s/60s even before hospitalizations. pt completed sit to stand max A x 2 and max cues. pt presents with forward flexed trunk and c/o increase pain when trying to stand upright. pt completed step transfer to chair using fWW max A 2 and max cues. pt refused to ambulate but agreed to stay up on the chair. positioned pt on the chair. ice pack provided. call light and table placed wtihin reach. PT-Balance Assessment Sitting Balance and Reactions Static Sitting Balance Ability Fair Dynamic Sitting Balance Ability Fair Standing Balance and Reactions Static Standing Balance Ability Poor Dynamic Standing Balance Ability Poor Device Used FWW M5 PT-IP Objective Assessments Start: 11/28/23 11:54 Freq: NEEDED Status: Active Protocol: Document 11/28/23 10:25 AB (Rec: 11/28/23 12:08 AB [id number]) Orientation Orientation/Cognition Level of Alertness Alert Orientation Name,Place,Situation Language Function Ability Hard of Hearing Safety Awareness Decreased Safety Awareness Memory Description Short Term Impaired Gross Range of Motion Lower Extremity ROM Assessment Within Functional Limits Strength Lower Extremity Strength Assessment Bilaterally Impaired Comments Strength Comments RLE: 3+/5 LLE: 4-/5 Muscle Tone Muscle Tone WNL Yes M6 PT-IP Treatment Start: 11/28/23 11:54 Freq: NEEDED Status: Active Protocol: Document 11/28/23 10:25 AB (Rec: 11/28/23 12:08 AB [id number]) Physical Therapy Treatment Education Education Provided Precautions,Safety M7 PT-IP Assessment and Plan Start: 11/28/23 11:54 Freq: NEEDED Status: Active Protocol: Document 11/28/23 10:25 AB (Rec: 11/28/23 12:08 AB [id number]) PT Summary Assessment and Plan Potential Rehabilitation Potential Fair Status of Condition at Evaluation Evolving Summary Impairments Pain,ROM,Strength,Balance, Coordination,Sensation,Tone, Cognition,Bed Mobility, Transfers,Gait,Activity Tolerance Assessment Summary pt is an 83 y/o M who presented to the ED due to intractable back pain with h/o falls. pt currently requiring max Ax 2 with mobility using FWW for transfers. pt refuse to ambulate today due to c/o increase back pain. will continue to assess progress but at this time require 24/ assist and may require SNF rehab. Goals Bed Mobility Goal Minimal Assistance Transfer Goal Minimal Assistance,Front Wheeled Walker Gait Goal Minimal Assistance,Front Wheel Walker Gait Distance 50 Other Goals improve bed mobility, transfer , ambulation using FWW SBA 150 ft up/down 2 steps using AD/RECYCLING OR RUBBISH COLLECTOR CGA Days to Meet Goals 10 Frequency of Treatment Frequency Of Treatment Once a Day Treatment Plan Physical Therapy Treatment Plan Bed Mobility Training,Transfer Training,Gait Training, Therapeutic Exercise,Balance Retraining,Discharge Planning, Hot or Cold Pack,Neuromuscular Re-ed,Coordination Retraining ,Manual Therapy Precautions Lumbar Precautions Log Roll,No Twisting,Limit Bending,Lifting Restriction of 10 lbs Other Precautions falls Recommendations To Nursing Amount of Assist Needed 2 Person Assist Discharge Recommendations PT Discharge Recommendations SNF Rehab Transportation Needs at Discharge Wheelchair/Cabulance,Stretcher /Ambulance
[2023-11-28 11:15] VITALS: BP 97/69; PULSE 117; RESP 20; TEMP 36.5; O2SAT 97
[2023-11-28] MEDS: ENOXAPARIN 40 MG/0.4 ML SYRINGE SUBCUT (12:23)
--- NOTE | 2023-11-28 16:26 | PC.NURSE ---
Pt resting quietly this afternoon. Denies discomfort when asked SL intact/patent. Call light w/in reach, bed alarem on for pt safety. Continue w/plan of care.
[2023-11-28 20:03] VITALS: BP 95/67; PULSE 117; RESP 18; TEMP 36.8; O2SAT 93
[2023-11-28] MEDS: SENNOSIDES 8.6 MG TABLET 17.2 MG PO (20:16)
[2023-11-28] MEDS: LATANOPROST 0.005% OPHTH 2.5 ML 1 DROPS EYE-BOTH (20:16)
[2023-11-29] MEDS: CYCLOBENZAPRINE 10 MG TABLET 5 MG PO ×2 (06:31→21:37)
[2023-11-29 07:37] VITALS: BP 96/57; PULSE 85; RESP 17; TEMP 36.8; O2SAT 98
--- NOTE | 2023-11-29 07:59 | P.PN_ITS ---
Subjective Subjective Interval history: He was having significant back pain today. Poorly controlled with 1 oxycodone. The pain does not radiate. He denies any suicidal thoughts or suicidal ideation. He notes that he did make statements about that when he 1st came to the hospital because he was in so much pain. His is at the bedside and reinforces a lack of suicidal ideation. Exam Vital Signs (past 8 hours): - 11/29/23 07:37 Temperature 98.2 F Pulse Rate 85 Respiratory Rate 17 Blood Pressure 96/57 L Pulse Oximetry 98 Oxygen Flow Rate 0 Oxygen Delivery Method Room Air Oxygen Flow Rate 0 Narrative Exam Narrative: NAD, alert and oriented. Fluent speech. Appears uncomfortable. Lungs are clear, normal rate and effort. Heart is regular, no murmur gallop or rub. Abdomen is soft, non distended. Extremities are free of edema. Objective Labs 11/27/23 19:15 11/27/23 19:15 [facility] Medical History Coronary artery disease Atrial fibrillation Anticoagulated Social History household members: spouse Smoking Status: Unknown if ever smoked Assessment & Plan Assessment & Plan narrative: 1. L3 and L4 Compression fracture with intractable pain, present on admission and active. 2. Chronic atrial fibrillation, present on admission and stable. 3. BPH, present on admission and stable. 4. Chronic systolic CHF (unspecified type, no echo data available. He states depressed LVEF), present on admission and stable. PLAN: -oxycodone trial for pain control. Increase to 10 mg doses today. -physical therapy referral and evaluation. -discharge planning. SNF in 1 day. -discuss pros and cons of chronic anticoagulation with him. Estimated date of discharge is November 29, pending improvement of back pain and inability to ambulate. He lives in [place] with his . Quality VTE Deep Vein Thrombosis/Pulmonary Embolism Present on Admission: No
[2023-11-29] MEDS: TORSEMIDE 10 MG TABLET 20 MG PO (10:13)
[2023-11-29] MEDS: TAMSULOSIN 0.4 MG CAPSULE PO (10:13)
[2023-11-29] MEDS: METOPROLOL ER 25 MG TABLET PO (10:14)
[2023-11-29] MEDS: ENOXAPARIN 40 MG/0.4 ML SYRINGE SUBCUT (10:14)
[2023-11-29] MEDS: FINASTERIDE 5 MG TABLET PO (10:14)
[2023-11-29] MEDS: SPIRONOLACTONE 25 MG TABLET PO (10:14)
[2023-11-29] MEDS: OXYCODONE IR 10 MG TABLET PO (11:17)
--- NOTE | 2023-11-29 12:54 | PC.NURSE ---
Addendum entered by Bhumi Sales R.N. 11/29/23 14:15: Patient was given a bed bath, and repositioned. Given 10mg of oxycodone earlier and helpful for discomfort to back. Original Note: Patient is alert and oriented x4, states that he has been having multiple falls at home because his legs give out on him. He also is a mouth breather, so he wakes up extremely dry and then has been noted to have some issues with coughing and choking. Patient ate a banana for breakfast and refused his lunch. He is lying on his left side and sleeping after 10m of oxycodone given to patient. He would like to wait to get his amiodorone after he rests for a while, along with his miralax. Blood pressure also running lower this morning. in room visiting now.
--- NOTE | 2023-11-29 13:07 | PT.IPTN ---
Addendum entered and electronically signed by Bettie Martinez PT 11/29/23 13:20: PT provides direct supervision during SPT treatment Original Note: Current Diagnoses Dorsalgia, unspecified (11/27/23) Physical Therapy Treatment Note M2 PT-IP Current Condition Start: 11/28/23 11:54 Freq: NEEDED Status: Active Protocol: Document 11/28/23 10:25 AB (Rec: 11/28/23 12:08 AB [id number]) Physical Therapy Current Condition Current Condition Evaluation Date 11/28/23 Treatment Diagnosis intractable back pain; L3, L4 compression fx; difficulty in walking Onset Date 11/27/23 M3 PT-IP Subjective Start: 11/28/23 11:54 Freq: NEEDED Status: Active Protocol: Document 11/29/23 11:43 JG (Rec: 11/29/23 12:26 JG [id number]) Subjective Physical Therapy Visit Type Type Treatment Note Visit Start Time 11:43 Visit Stop Time 12:06 Number of BEHAVIORAL HEALTH CLINICIAN Visits 0 Physical Therapy Visit Comments Patient Comments Pt complained of 10/10 pain at the start of the session. By the end of the session after movement he reported the pain dropped to a 4/10. Pt said he has not eaten and that might be why he is feeling slow. Therapy Pain Assessment Pain When Pain Assessed At Rest Pain Present Pain Present Pain Reported Location Lower Back Intensity 10 Scale Used Numeric (0 - 10) Description Aching,Pinching,With Movement Pain Behaviors Calling Out,Facial Grimacing, Guarding,Holding Area,Moaning, Wincing Pain Management Techniques Modification of Treatment,Re- positioning M4 PT-IP Mobility and Gait Start: 11/28/23 11:54 Freq: NEEDED Status: Active Protocol: Document 11/29/23 11:43 JG (Rec: 11/29/23 12:26 JG [id number]) PT-Bed Mobility Assessment Rolling Type of Rolling Log Rolling Level of Assist Minimal Assistance,1 Person Assistance Supine to Sit Supine to Sit Contact Guard Assistance,Head of Bed Elevated,Bedrails Sit to Supine Sit to Supine Minimal Assistance,1 Person Assistance,Bedrails Scooting Scooting to Edge of Bed Contact Guard Assistance Scooting Up and Down in Bed Contact Guard Assistance PT-Transfer Assessment Sit to and From Stand Sit to and from Stand Moderate Assistance,1 Person Assistance,2 Person Assistance ,Use of Upper Extremities Equipment Transfer Assistive Device Bed Rail,Gait Belt,Front Wheeled Walker Orthotic/Prosthetic Devices or Brace: No Transfers Transfer Destination Bed Transfer Technique Side stepping Transfer Ability Level of Assist Moderate Assistance,1 Person Assistance,2 Person Assistance ,Use of Upper Extremities Comments Mobility Comments Pt required 1-2 person mod A for all standing activities. Pt knee buckled during the initial step after standing and could not fully extended knees. Pt was asked to ambulate forward for one step and back for one step before side stepping. Pt needed max cueing to stay upright and hold onto walker properly. Next, pt took a few side steps to the left with RW. Pt left side lying with pillow between knees, and supporting R arm. Gait Assessment Gait Gait Assistance Required: Moderate Assistance,1 Person Assist,2 Person Assist Distance (Feet) 2 Able to Maintain Weight Bearing Status Yes During Gait Assistive Devices Assistive Device Gait Belt,Front Wheeled Walker Orthotic/Prosthetic Devices or Brace: No Gait Deviations General Gait Pattern Decreased Stride Length, Decreased Feet Clearance, Flexed Trunk,Step-to Gait,Wide Based Gait Factors Limiting Gait Function Factors Limiting Gait Function Decreased Activity Tolerance, Decreased Strength,Difficulty Following Directions, Incoordination,Pain,Poor Balance,Poor Safety Awareness, Respiratory Distress Comments Gait Comments See above for gait comments PT-Balance Assessment Sitting Balance and Reactions Static Sitting Balance Ability Good Dynamic Sitting Balance Ability Good Standing Balance and Reactions Static Standing Balance Ability Poor Dynamic Standing Balance Ability Poor Device Used FWW M5 PT-IP Objective Assessments Start: 11/28/23 11:54 Freq: NEEDED Status: Active Protocol: Document 11/28/23 10:25 AB (Rec: 11/28/23 12:08 AB [id number]) Orientation Orientation/Cognition Level of Alertness Alert Orientation Name,Place,Situation Language Function Ability Hard of Hearing Safety Awareness Decreased Safety Awareness Memory Description Short Term Impaired Gross Range of Motion Lower Extremity ROM Assessment Within Functional Limits Strength Lower Extremity Strength Assessment Bilaterally Impaired Comments Strength Comments RLE: 3+/5 LLE: 4-/5 Muscle Tone Muscle Tone WNL Yes M6 PT-IP Treatment Start: 11/28/23 11:54 Freq: NEEDED Status: Active Protocol: Document 11/29/23 11:43 JG (Rec: 11/29/23 12:26 JG [id number]) Physical Therapy Treatment Exercises Exercises Ankle Pumps,Gluteal Sets,Quad Sets,Heel Slides,Short Arc Quads Education Education Provided Precautions,Safety Other Treatments Other Treatment Performed Extensive ed to pt about benefits of closing mouth and trying nasal breathing to slow breathing (RR) and improve pain and pt is able to do with cues M7 PT-IP Assessment and Plan Start: 11/28/23 11:54 Freq: NEEDED Status: Active Protocol: Document 11/29/23 11:43 NEGIN (Rec: 11/29/23 12:26 JRosa [id number]) PT Summary Assessment and Plan Potential Rehabilitation Potential Fair Status of Condition at Evaluation Evolving Summary Impairments Pain,Strength,Balance,Bed Mobility,Transfers,Gait, Activity Tolerance Progress Towards Goals Progressing Toward Goals Assessment Summary Pt had 10/10 pain in hips upon PT arrival. Pt reported pain had gone down by the end of PT and was feeling better. Pt is moving better today and he requires 1-2 mod A for mobility as opposed and he could take some side steps. Of note, while instructed pt in log rolling technique, he requested to get up from hook lying position that he was found in with HOB up. LE exercises in bed may have helped pain before mobility today. Goals Bed Mobility Goal Independent Transfer Goal Standby Assistance,Front Wheeled Walker Gait Goal Standby Assistance,Front Wheel Walker Gait Distance 50 Other Goals improve bed mobility, transfer , ambulation using FWW SBA 150 ft up/down 2 steps using AD/BUSINESS SYSTEMS MANAGER CGA Days to Meet Goals 10 Frequency of Treatment Frequency Of Treatment Once a Day Treatment Plan Physical Therapy Treatment Plan Bed Mobility Training,Transfer Training,Gait Training, Therapeutic Exercise,Balance Retraining,Discharge Planning, Hot or Cold Pack,Neuromuscular Re-ed,Coordination Retraining ,Manual Therapy Precautions Lumbar Precautions Log Roll,No Twisting,Limit Bending,Lifting Restriction of 10 lbs Other Precautions falls Recommendations To Nursing Amount of Assist Needed 2 Person Assist Discharge Recommendations PT Discharge Recommendations SNF Rehab Transportation Needs at Discharge Wheelchair/Cabulance
[2023-11-29] MEDS: polyethylene glycoL 3350 17 GM POWD.PACK PO (13:33)
[2023-11-29] MEDS: AMIODARONE 200 MG TABLET 100 MG PO (13:33)
--- NOTE | 2023-11-29 13:47 | CM.DPC ---
DCP SNF Planning: Per admissions at [facility], only concern currently for accepting pt is his statements of S.I. at admission and no further documentation. MD met bedside with pt and spouse and confirmed that pt does not have a hx of S.I. or attempts and pt's statements were situational depression/anxiety due to uncontrolled back pain without relief. Pt and spouse confirm that pt has no further S.I. or plan and deny any further mental health concerns. Per PT, recommending SNF at d/c. [facility] confirms that they will submit for insurance auth for patient today. PASRR done but needs MD signature for Hospital Exempted discharge for pt's situational depression/anxiety and current use of Ativan for chronic back pain with lack of relief. Plan: SW to follow closely for insurance auth for SNF and to update pt and spouse bedside once determination made. SULY Macdonald
[2023-11-29] MEDS: AMOXICILLIN 250 MG CAPSULE 500 MG PO ×2 (16:04→21:37)
[2023-11-29] MEDS: BENZONATATE 100 MG CAPSULE PO (17:35)
[2023-11-29 19:00] VITALS: BP 95/59; PULSE 78; RESP 18; TEMP 36.5; O2SAT 91
[2023-11-29 21:30] VITALS: BP 95/59
[2023-11-29] MEDS: SENNOSIDES 8.6 MG TABLET 17.2 MG PO (21:37)
[2023-11-29] MEDS: LATANOPROST 0.005% OPHTH 2.5 ML 1 DROPS EYE-BOTH (21:37)
[2023-11-30] VITALS (12 sets, daily range): BP systolic 78–142; BP diastolic 40–69; PULSE 83–164; RESP 16–58; TEMP 36.6–36.7; O2SAT 84–98
[2023-11-30] MEDS: CYCLOBENZAPRINE 10 MG TABLET 5 MG PO ×3 (05:04→21:00)
[2023-11-30] MEDS: AMIODARONE 200 MG TABLET 100 MG PO (09:31)
[2023-11-30 09:32] LABS: Add Manual Diff / Slide Review NO; Basophils Absolute Auto 0 /uL (0-100); Basophils Percent Auto 0.3 % (0-2); Eosinophils Absolute Auto 100 /uL (0-450); Eosinophils Percent Auto 1.4 % (2-4); Hematocrit 37.2 % (41-53); Hemoglobin 12.6 g/dL (13.5-17.5); Lymphocytes Absolute Auto 1300 /uL (1100-4500); Lymphocytes Percent Auto 17.4 % (25-40); Mean Corpuscular HGB Conc 33.7 % (30-36); Mean Corpuscular Hemoglobin 33.8 PG (26-34); Mean Corpuscular Volume 100.2 fL (80-100); Monocytes Absolute Auto 1000 /uL (0-900); Monocytes Percent Auto 13.7 % (3-14); Neutrophils Absolute Auto 5000 /uL (1500-7000); Neutrophils Percent Auto 67.2 % (50-75); Platelet Count 148 X10^3/uL (150-400); Red Blood Cell Count 3.72 X10^6/uL (4.5-5.9); White Blood Cell Count 7.4 X10^3/uL (4.5-11.0)
[2023-11-30] MEDS: TAMSULOSIN 0.4 MG CAPSULE PO (09:33)
[2023-11-30] MEDS: ENOXAPARIN 40 MG/0.4 ML SYRINGE SUBCUT (09:33)
[2023-11-30] MEDS: AMOXICILLIN 250 MG CAPSULE 500 MG PO ×3 (09:33→20:49)
[2023-11-30] MEDS: FINASTERIDE 5 MG TABLET PO (09:33)
[2023-11-30] MEDS: polyethylene glycoL 3350 17 GM POWD.PACK PO (09:34)
[2023-11-30] MEDS: SPIRONOLACTONE 25 MG TABLET PO (09:34)
[2023-11-30] MEDS: METOPROLOL ER 25 MG TABLET PO (09:34)
[2023-11-30] MEDS: TORSEMIDE 10 MG TABLET 20 MG PO (09:34)
[2023-11-30 09:44] LABS: Alanine Aminotransferase 15 IU/L (<50); Albumin 3.6 g/dL (3.5-5.0); Albumin Globulin Ratio 1.1 (1.0-2.8); Alkaline Phosphatase 93 U/L (38-126); Aspartate Aminotransferase 27 IU/L (17-59); BUN Creatinine Ratio 17.5 (6-22); Bilirubin Total 1.4 mg/dL (0.2-1.3); Blood Urea Nitrogen 31 mg/dL (9-20); Calcium 9.8 mg/dL (8.4-10.2); Carbon Dioxide 27 mmol/L (22-32); Chloride 98 mmol/L (98-107); Estimated Glomerular Filt Rate 37 mL/min (>60); Globulin 3.4 g/dL (1.7-4.1); Glucose 174 mg/dL (80-110); HEMOLYSIS < 15 (0-50); Sodium 131 mmol/L (137-145)
--- NOTE | 2023-11-30 10:55 | OT.IP.EVAL ---
Addendum entered and electronically signed by Adela Encinas OT 11/30/23 11:16: Pt hit his arm on the tray table causes skin tear in which pt's nurse able to come, assess, and put a dressing on it. Original Note: Current Diagnoses Dorsalgia, unspecified (11/28/23) Past Medical History (Last Reviewed 11/28/23 @ 08:09 by Saud Hubbard MD) Anticoagulated Atrial fibrillation Coronary artery disease Occupational Therapy Inpatient Evaluation/Re-Eval M1 PT/OT-IP Prior Functional Status Start: 11/28/23 11:54 Freq: NEEDED Status: Active Protocol: Document 11/28/23 10:25 AB (Rec: 11/28/23 12:08 AB [id number]) Medical Review Prior Functional Status Medical History Reviewed Yes Communication able to make needs known Mobility and Gait spouse and daughter provided most of pt's PLOF and home set up. stated that pt started using a 4WW last june after falling but has slowly been declining in function due to back pain and continued h/o falls (family stated that they cannot count the times pt had fallen) Social History Household Members spouse Living Arrangements House Number of Floors (Floors) One Floor Number of Stairs To Enter/Railing? 2 steps to enter without rails Home Environment Standard Height Toilet,Walk in Shower Home Equipment Four Wheel Walker,Raised Toilet Seat w/Armrests,Shower Seat with Backrest,Hand Held Shower Additional Social History Comment pt has a standard walker M1 PT/OT-IP Prior Functional Status Start: 11/30/23 10:55 Freq: NEEDED Status: Active Protocol: Document 11/30/23 10:55 [facility] (Rec: 11/30/23 11:13 [facility] [id number]) Medical Review Prior Functional Status Medical History Reviewed Yes Communication able to make needs known Mobility and Gait spouse and daughter provided most of pt's PLOF and home set up. stated that pt started using a 4WW last june after falling but has slowly been declining in function due to back pain and continued h/o falls (family stated that they cannot count the times pt had fallen) Activities of Daily Living and IADL's Pt's states prior has had to assist with LB dressing needs, but that pt was able to do his toilet hygiene and showering on his own. Social History Household Members spouse Living Arrangements House Number of Floors (Floors) One Floor Number of Stairs To Enter/Railing? 2 steps to enter without rails Home Environment Standard Height Toilet,Walk in Shower Home Equipment Four Wheel Walker,Raised Toilet Seat w/Armrests,Shower Seat with Backrest,Hand Held Shower Additional Social History Comment pt has a standard walker M2 OT-IP Current Condition Start: 11/30/23 10:55 Freq: Status: Active Protocol: Document 11/30/23 10:55 [facility] (Rec: 11/30/23 11:13 [facility] [id number]) Occupational Therapy Current Condition Current Condition Evaluation Date 11/30/23 Treatment Diagnosis Back Pain, compression fx L3- 4 Post Operative Precautions Lumbar Precautions Log Roll,No Twisting,Limit Bending,Lifting Restriction of 10 lbs Other Precautions Plce gait belt above L3-4. M3 OT- IP Subjective and Pain Start: 11/30/23 10:55 Freq: Status: Active Protocol: Document 11/30/23 10:55 [facility] (Rec: 11/30/23 11:13 [facility] [id number]) OT- Subjective Occupational Therapy Visit Type Type Initial Evaluation Visit Start Time 10:00 Visit Stop Time 10:55 Occupational Therapy Visit Comments Patient Comments Pt wanting to get changed and agreed to get up. Pt's family in the room. Patient/Caregiver Goals To get better OT Pain Assessment Pain When Pain Assessed At Rest Pain Present Pain Present Pain Reported Location Lower Back Intensity 7 Scale Used Numeric (0 - 10) M4 OT- IP ADL's Start: 11/30/23 10:55 Freq: Status: Active Protocol: Document 11/30/23 10:55 [facility] (Rec: 11/30/23 11:13 [facility] [id number]) OT [id number] Comments OT Self-Feeding Comments Not at meal time. OT ADL-Grooming Comments OT Grooming Comments Able to do while seated in the bed after set-up. OT ADL-Oral Care General Eval Oral Care Ability Standby Assistance Areas of Assistance Retrieving/Set-Up of Items Comments Oral Care Comments Set-up assist. OT ADL-Dressing General Eval Lower Body Dressing Ability Maximum Assistance Areas Needing Assistance Underpants/Brief,Socks Comments OT Dressing Comments At this time pt needing MAXA for all LB dressing needs, able to initiate conversation for LB dressing needs. OT ADL-Toileting Comments OT Toileting Comments MAX X1 to assist to help change on his brief during log rolling needs. OT ADL-Bathing Comments OT Bathing Comments At this time sponge bath more appropriate . Pt able to assist while in supine to wash his arms, chest, and perineal area in front. Pt needing assist for his back, bottom, and to put protectant cream on his bottom. M5 OT- IP IADL's Start: 11/30/23 10:55 Freq: Status: Active Protocol: Document 11/30/23 10:55 [facility] (Rec: 11/30/23 11:13 [facility] [id number]) OT-Instrumental Activities of Daily Living Deficits IADL Deficits Identified Deficits Home Safety Awareness Awareness of Need for Assistance at Home Good Awareness Medication Management Medication Management Comments Pt would benefit from at least supervision at this time. Prior per pt's does his own. Money Management Money Management Caregiver Provides Assistance Meal Preparation Meal Preparation Caregiver Provides Assist Student Success Coach Student Success Coach Caregiver Provides Assist M6 OT- IP Functional Cognition Start: 11/30/23 10:55 Freq: Status: Active Protocol: Document 11/30/23 10:55 [facility] (Rec: 11/30/23 11:13 [facility] [id number]) Cognitive Factors Limiting Selfcare Function Cognitive Ability Level of Alertness Alert Patient Orientation Name,Place,Situation Attention Span Ability Capable of Focused Attention, Capable of Sustained Attention Ability to Follow Commands Able to Follow One Step Commands with Increased Time, Able to Follow One Step Commands with Repetition Cognitive Comments Cognitive Assessment Comments Pt is lots of pain and able to follow commands for ADL and IADL needs at this time. OT- Vision and Hearing OT- Hearing Assessment OT- Hearing Assessment WFL,Use of Hearing Aids OT- Vision Assessment Visual Acuity Glasses For Reading Visual Attentiveness WFL Occular Pursuits WFL Vision Assessment Comments Pt able to read the clock accurately. M7 OT- IP Mobility and Balance Start: 11/30/23 10:55 Freq: Status: Active Protocol: Document 11/30/23 10:55 [facility] (Rec: 11/30/23 11:13 [facility] [id number]) OT- Bed Mobility Assessment Supine to Sit Supine to Sit Assist Maximum Assistance,1 Person Assistance Sit to Supine Sit to Supine Assist Maximum Assistance,2 Person Assistance Scooting Scooting to Edge of Bed Moderate Assistance,1 Person Assistance OT-Transfer Assessment Sit to and From Stand Sit to and from Stand Maximum Assistance,2 Person Assistance Comments Mobility Comments MAX AX 1 and heavy use of green pad to assist to roll and assist to get his trunk upright. MAX AX 2 to help get back to bed. MAX AX 2 to stand to the FWW and BLE very weak and having difficulty to straighten his legs. Able to take a couple side steps to the head of the bed with MAX AX 2. OT- Balance Assessment Sitting Balance and Reactions Static Sitting Balance Ability Fair Dynamic Sitting Balance Ability Poor Standing Balance and Reactions Static Standing Balance Ability Poor Dynamic Standing Balance Ability Poor M8 OT- IP Objective Assessments Start: 11/30/23 10:55 Freq: Status: Active Protocol: Document 11/30/23 10:55 [facility] (Rec: 11/30/23 11:13 [facility] [id number]) OT Gross Range of Motion Upper Extremity Range of Motion Assessment Bilaterally Impaired ROM Impairments BUE 0-120. 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 M9 OT- IP Assessment and Plan Start: 11/30/23 10:55 Freq: Status: Active Protocol: Document 11/30/23 10:55 [facility] (Rec: 11/30/23 11:13 [facility] [id number]) OT Summary Assessment and Plan Potential Rehabilitation Potential Good Analytic Complexity at Evaluation Moderate Summary OT Impairments Pain,Range of Motion,Strength, Balance,Functional Mobility, Grooming,Dressing,Toileting, Bathing,Toilet Transfers, Shower Transfers,Activity Tolerance Progress Towards Goals Slow Progress due to Pain,Slow Progress due to Medical Issues,Slow Progress due to Activity Tolerance Assessment Summary Pt MOD complexity and here due to intractable back pain and per medical chart has L3-L4 compression fractures. Pt educated on log rolling for mobility needs, need for equipment needs for LB dressing needs, and at this time needing two person assist for mobility needs at this time. Pt will benefit from skilled rehab at this time. Goals Self-Feeding Goal Independent Grooming Goal Independent Dressing Goal Minimal Assistance Toileting Goal Minimal Assistance Bathing Goal Minimal Assistance Toilet Transfer Goal Minimal Assistance Shower Transfer Goal Minimal Assistance Days to Meet Goals 30 Frequency of Treatment Frequency Of Treatment Once a Day Treatment Plan OT Treatment Plan ADL Training,Functional Mobility,Patient/Family Education,Discharge Planning Discharge Recommendations OT Discharge Recommendations SNF Rehab Transportation Needs at Discharge Wheelchair/Cabulance
[2023-11-30] MEDS: fentaNYL 25 MCG/PATCH TOP (11:09)
--- NOTE | 2023-11-30 11:19 | P.PN_ITS ---
Subjective Subjective Interval history: He was still having significant pain at rest from his compression fractures with oxycodone 10 mg Q 3 hours. We will add a fentanyl patch at 25 mcg an hour today. He was a history of adhesion reactions we will have to watch this carefully. He is doing fairly well with mental status. He did request a pulsed today and I feel this out with the patient, son, and at the bedside. He was DNR. He is limited medical interventions and wants no heroic efforts or invasive procedures. Exam Vital Signs (past 8 hours): - 11/30/23 07:00 11/30/23 09:34 Temperature 97.9 F Pulse Rate 102 H 102 H Respiratory Rate 18 Blood Pressure 106/66 106/66 Pulse Oximetry 98 Oxygen Flow Rate 0 Oxygen Delivery Method Room Air Oxygen Flow Rate 0 Narrative Exam Narrative: NAD, alert and oriented. Fluent speech. He appears somewhat uncomfortable. Lungs are clear, normal rate and effort. Heart is regular, no murmur gallop or rub. Abdomen is soft, non distended. Extremities are free of edema. Objective Labs 11/30/23 09:04 11/30/23 09:04 Labs: Laboratory Results - last 24 hr 11/30/23 09:04 WBC 7.4 RBC 3.72 L Hgb 12.6 L Hct 37.2 L MCV 100.2 H MCH 33.8 MCHC 33.7 RDW 15.0 H Plt Count 148 L Neut % (Auto) 67.2 Lymph % (Auto) 17.4 L [place] % (Auto) 13.7 Eos % (Auto) 1.4 L Baso % (Auto) 0.3 Neut # (Auto) 5000 Lymph # (Auto) 1300 [place] # (Auto) 1000 H Eos # (Auto) 100 Baso # (Auto) 0 Sodium 131 L Potassium 4.0 Chloride 98 Carbon Dioxide 27 BUN 31 H Creatinine 1.77 H Estimated GFR 37 L BUN/Creatinine Ratio 17.5 Glucose 174 H Calcium 9.8 Total Bilirubin 1.4 H AST 27 ALT 15 Alkaline Phosphatase 93 Total Protein 7.0 Albumin 3.6 Globulin 3.4 Albumin/Globulin Ratio 1.1 PFSH Medical History Coronary artery disease Atrial fibrillation Anticoagulated Social History household members: spouse Smoking Status: Unknown if ever smoked Assessment & Plan Assessment & Plan narrative: 1. L3 and L4 Compression fracture with intractable pain, present on admission and active. 2. Chronic atrial fibrillation, present on admission and stable. 3. BPH, present on admission and stable. 4. Chronic systolic CHF (unspecified type, no echo data available. He states depressed LVEF), present on admission and stable. PLAN: -oxycodone trial for pain control. Increase to 10 mg doses today. -physical therapy referral and evaluation. -discharge planning. SNF in 1 day. -resume anticoagulation (atrial fibrillation). Warfarin without bridging. DNR is proxy decision maker. Discharge plan is [facility], they were unable to accept him today due to multiple admits. We anticipate he will be discharged to [facility] on November 30. Quality VTE Deep Vein Thrombosis/Pulmonary Embolism Present on Admission: No
--- NOTE | 2023-11-30 11:25 | CM.DPC ---
Addendum entered by SULY Macdonald 11/30/23 16:15: ADD: MSg from [facility] confirming they just received insurance auth for pt from his insurance for SNF and can still accept tomorrow Tues. BF Original Note: DCP Cont: Per MD, pt to have fentanyl patch today to see if it helps manage his pain even better but has maintained on PO pain meds yesterday and today, likely not ready for d/c until tomorrow Tu. SW called [facility] admissions and updated them on likely d/c tomorrow and they should have insurance auth by today for admitting pt tomorrow Tu. SW met bedside with pt who was a little confused but pleasant and appropriate and spouse via phone before spouse arrived bedside and updated them on acceptance at [facility] and waiting on insurance auth and spouse confirms she is very appreciative and this remains their preference for discharge. Spouse will be bedside later this morning. Plan: SW to follow for likely plan of [facility] tomorrow Tu if he remains stable and PASRR to be signed by Hospitalist prior to discharge. SULY Macdonald
--- NOTE | 2023-11-30 12:26 | DI.RAD.S_ITS ---
PROCEDURE: FL BARIUM SWALLOW W SPEECH INDICATIONS: s/sx aspiration on thin liquids COMPARISON: None. TECHNIQUE: Examination was conducted in conjunction with speech pathology per standard protocol. In the lateral projection, filming was performed of the patient swallowing. AP projection filming may also be performed with patient swallowing. COMPARISON: FINDINGS: Function: The oral preparatory phase appears normal, with proper containment. The subsequent oral propulsive phase, pharyngeal phase, and esophageal phase of swallowing also appear normal with all proffered substances. There were episodes of laryngotracheal penetration with both thin barium and nectar. There were episodes of silent aspiration with ingestion of thin barium. There was vallecular pooling after ingesting barium coated crackers with questionable mild delayed aspiration. Morphology: No cricopharyngeal bar is identified. No cervical esophageal webs. No Zenker's diverticulum. No strictures. IMPRESSION: Episodes of laryngotracheal penetration with both thin barium and nectar, episodes of silent aspiration with ingestion of thin barium. Vallecular pooling with questionable mild, delayed aspiration. Please see separate report by the speech pathologist for further details. Dictated by: Salvatore Miller M.D. on 11/30/2023 at 17:48 Approved by: Salvatore Miller M.D. on 11/30/2023 at 18:02
--- NOTE | 2023-11-30 13:00 | ST.IPCSEOM ---
Visit Care Team Role Provider Type Lindsay Chavarria MD Primary Care Provider Physician Specialty: Internal Medicine Address: [place] [address] Email: Rashmi Yip MD Emergency Provider Physician Referring Provider Specialty: Emergency Medicine Address: [address] [place] [address], [facility] Email: [email or web address] Umer Argueta MD Admit Provider Physician Attending Provider Specialty: Internal Medicine Address: [address] [place] [address], [facility] Fax: Email: [email or web address] Current Diagnoses Dorsalgia, unspecified (11/28/23) Past Medical History (Last Reviewed 11/28/23 @ 08:09 by Saud Hubbard MD) Anticoagulated (Medical) Atrial fibrillation (Medical) Coronary artery disease (Medical) Speech-Language Pathology 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 Evaluation 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 Clinical Swallow Evaluation Start: 11/30/23 12:31 Freq: Status: Active Protocol: Document 11/30/23 12:31 CG (Rec: 11/30/23 12:38 CG [id number]) Clinical Swallow Evaluation Session Time Visit Start Time 11:40 Visit Stop Time 12:30 Total Visit Minutes 50 Visit Information Visit Number 1 Referral Referring Provider Stevie (hospitalist) Reason for Referral C/o coughing with meals/drinks Setting Assessment Location Acute Care Visit Type Note Type Initial evaluation Patient Information History Per H&P: 82 years old male with history of atrial fibrillation, CAD with pacemaker/AICD, diabetes presented to the ER with intractable back pain. The patient was recently in the ED for similar symptoms after he fell. Denies any aqua inguina symptoms. Laboratory was unremarkable. UA shows WBC 5/10 but the patient denies any dysuria. CT scan of the lumbar spine shows multilevel loss of body weight of L4, L3 along with degenerative disc disease. The patient was given fentanyl 75 mcg, Tylenol 1 g IV, lidocaine patch and NS 1 L bolus in the ED. Pt was referred to ST due to pt and family concerns re pt coughing while eating and drinking. Family states that the pt frequently coughs while eating/drinking or taking pills, and that this has been going on for about a month but increasing in intensity and frequency over the past week or so. Pt reports severe pain with coughing due to ongoing back pain concerns. He does not report a modified diet at home. Subjective Observations Pt was partiallty reclined in bed upon ST entry to room, with and family present. He was partially slumped over to the right side. ST and nursing aid repositioned pt centered and upright 70 degrees in bed. Pt did not report pain with being positioned upright, which family states is surprising as he has been having pain with sitting up. Lack of pain likely due to fentanyl patch which was placed about an hour ago. Pt presents with slurred speech and imprecise articulation, which family states is not baseline. He also presents with strained, cul-de-sac like voice which family states is baseline. Pt did c/o pain when coughing but tolerated upright positioning . Reported by Patient/Caregiver Pain/Discomfort Yes Other Symptoms Coughing,Difficulty swallowing liquids,Difficulty swallowing pills,Difficulty swallowing solids Current Diet Regular (IDDSI 7) Baseline Feeding Method Needs some assistance The IDDSI Framework Protocol: IDDSI.1 Objective Assessment Mental Status Alert,Responsive,Cooperative, Confused Oral Integrity WFL Lip Function Mild impairment Pucker Reduced range of motion Lip Retraction Within normal limits Alternating Pucker/Lip Retraction Incoordination Tongue Function Mild impairment Tongue Protrusion Within normal limits Tongue Lateralization Incoordination Observation of Jaw at Rest Within normal limits Jaw Opening Within normal limits Jaw Closing Within normal limits Hard/Soft Palate Function Within normal limits Nasality Hypernasal Respiratory Sufficiency Moderate impairment Comment OME significant for the following: -alternating pucker/smile task was significantly discoordinated -tongue elevation and depression were mildly- moderately discoordinated -SOB at baseline Food and Liquid Trials Position During Assessment Slightly reclined,In bed Liquids Trialed Thin (IDDSI 0) Solid Trials Purred (IDDSI 4),Soft & Bite- sized (IDDSI 6) Administration Type Straw Oral Impairment Mildly impaired Oral Phase Comments Thin liquids (tsp sized sips) via straw: -mildly disorganized lingual hold and A-P transit -mild anterior spillage -suspect premature spillage into pharynx prior to initiation of pharyngeal swallow Applesauce via spoon: -WFL Small bites of turkey with gravy: -Mildly prolongued mastication time -Prolongued A-P transit Pharyngeal Impairment Severely impaired Pharyngeal Phase Comments Trials thin liquids via straw: -immediate and delayed cough across trials -did not resolve with chin tuck or head turn -aspiration suspected -recommend MBSS Applesauce via tsp: -mildly wet/congested vocal quality after swallows -Throat clearing after swallows -Suspect pharyngeal residue Small bites of turkey with gravy: -Mildly gurgly vocal quality after swallows -No overt s/sx aspiration; however, pt and family c/o frequent symptoms of aspiration with solids. Suspect aspiration is possible with full meals but did not occur during controlled trials . Will assess solids on MBSS. Fatigue/Endurance Moderate fatigue Strategies Attempted Chin tuck,Head rotation Response/Comments No difference with thin liquids. Thickened liquids not trialed. The IDDSI Framework Protocol: IDDSI.1 Findings Swallowing Function Oropharyngeal phase dysphagia Swallowing Function Comments s/sx of aspiration with thins, MBS recommended Severity of Swallow Impairment Moderately-severely impaired Contributing Factors to Swallow Impaired airway protection Impairment Prognosis Guarded Based on Age,Comorbidities,Other ( comment) Comment -Unable to clear aspirations/ protect airway due to pain with coughing Impact on Safety and Functioning Risk for aspiration Recommendations Instrumental Assessment Yes Swallowing Treatment Yes Recommended Solids Soft & Bite-sized (IDDSI 6) Recommended Liquids Thin (IDDSI 0) Other Recommendations -Given pt has been on thin liquids with symptoms for a month without developing aspiration PNA, continue thin pending MBSS results this afternoon re safety with thin liquids Safety Precautions/Swallowing Supervision needed for all Recommendations meals,Feed only when alert, Remain upright (90 degrees) during all oral intake,Small bites and sips when eating, Strict oral care after intake, Check for pocketing Medication Recommendations Crushed in Carrier Discharge Recommendations custodial facility Education Patient/Caregiver Education Described results of evaluation,Patient expressed understanding of evaluation, Patient expressed understanding of safety precautions,Patient expressed understanding of feeding recommendations,Family/ caregivers expressed understanding of safety precautions,Family/caregivers expressed understanding of feeding recommendations, Patient requires further education/training,Family/ caregivers require further education/training Goals Short-term Goals 1. Pt will complete modified barium swallow study for objective evaluation of swallow function with various consistencies of liquids and while utilizing various positional manuevers (e.g. chin tuck, head turn, etc). Long-term Goals 2. Pt will safely and efficiently tolerate least restrictive diet in order to meet nutrition/hydration needs .
--- NOTE | 2023-11-30 13:28 | PT.IPTN ---
Current Diagnoses Dorsalgia, unspecified (11/28/23) Physical Therapy Treatment Note M2 PT-IP Current Condition Start: 11/28/23 11:54 Freq: NEEDED Status: Active Protocol: Document 11/28/23 10:25 AB (Rec: 11/28/23 12:08 AB [id number]) Physical Therapy Current Condition Current Condition Evaluation Date 11/28/23 Treatment Diagnosis intractable back pain; L3, L4 compression fx; difficulty in walking Onset Date 11/27/23 M3 PT-IP Subjective Start: 11/28/23 11:54 Freq: NEEDED Status: Active Protocol: Document 11/30/23 12:53 MB (Rec: 11/30/23 13:27 MB [id number]) Subjective Physical Therapy Visit Type Type Treatment Note Visit Start Time 12:53 Visit Stop Time 13:16 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 Upon arrival, many family members nearby and pt requesting to get up to BSC. Therapy Pain Assessment Pain When Pain Assessed At Rest Pain Present Pain Present Pain Reported Location Lower Back Intensity 5 Scale Used Watson-Lobo (Faces) M4 PT-IP Mobility and Gait Start: 11/28/23 11:54 Freq: NEEDED Status: Active Protocol: Document 11/30/23 12:53 MB (Rec: 11/30/23 13:27 MB [id number]) PT-Bed Mobility Assessment Supine to Sit Supine to Sit Contact Guard Assistance,1 Person Assistance,Head of Bed Elevated,Bedrails Scooting Scooting to Edge of Bed Contact Guard Assistance Scooting Up and Down in Bed Contact Guard Assistance PT-Transfer Assessment Sit to and From Stand Sit to and from Stand Minimal Assistance,1 Person Assistance,Use of Upper Extremities Equipment Transfer Assistive Device Bed Rail,Gait Belt,Front Wheeled Walker Orthotic/Prosthetic Devices or Brace: No Transfers Transfer Destination Bedside Commode Transfer Technique Side stepping Transfer Ability Level of Assist Maximum Assistance,2 Person Assistance,Use of Upper Extremities Comments Mobility Comments Pt moves to the right side of bed this afternoon. He may have skin breakdown on back of left calf d/t scooting to EOB as when he stands up, there is bleeding at his left calf and nsg called in to dress. Pt has a hard time following all commands for mobility today and he has posterior lean and has trouble following commands to move walker, step back and reach for BSC and sit down Gait Assessment Gait Gait Assistance Required: Maximum Assistance,2 Person Assist Distance (Feet) 1 Able to Maintain Weight Bearing Status Yes During Gait Assistive Devices Assistive Device Gait Belt,Front Wheeled Walker Orthotic/Prosthetic Devices or Brace: No Gait Deviations General Gait Pattern Decreased Stride Length, Decreased Feet Clearance, Flexed Trunk,Step-to Gait,Wide Based Gait Factors Limiting Gait Function Factors Limiting Gait Function Decreased Activity Tolerance, Decreased Strength,Difficulty Following Directions, Incoordination,Pain,Poor Balance,Poor Safety Awareness Comments Gait Comments Poor command-following and safety awareness today and skin break down with bleeding left posterior calf with mobility today PT-Balance Assessment Sitting Balance and Reactions Static Sitting Balance Ability Good Dynamic Sitting Balance Ability Good Standing Balance and Reactions Static Standing Balance Ability Poor Dynamic Standing Balance Ability Poor Device Used FWW M5 PT-IP Objective Assessments Start: 11/28/23 11:54 Freq: NEEDED Status: Active Protocol: Document 11/28/23 10:25 AB (Rec: 11/28/23 12:08 AB [id number]) Orientation Orientation/Cognition Level of Alertness Alert Orientation Name,Place,Situation Language Function Ability Hard of Hearing Safety Awareness Decreased Safety Awareness Memory Description Short Term Impaired Gross Range of Motion Lower Extremity ROM Assessment Within Functional Limits Strength Lower Extremity Strength Assessment Bilaterally Impaired Comments Strength Comments RLE: 3+/5 LLE: 4-/5 Muscle Tone Muscle Tone WNL Yes M6 PT-IP Treatment Start: 11/28/23 11:54 Freq: NEEDED Status: Active Protocol: Document 11/30/23 12:53 MB (Rec: 11/30/23 13:27 MB [id number]) Physical Therapy Treatment Education Education Provided Precautions,Safety M7 PT-IP Assessment and Plan Start: 11/28/23 11:54 Freq: NEEDED Status: Active Protocol: Document 11/30/23 12:53 MB (Rec: 11/30/23 13:27 MB [id number]) PT Summary Assessment and Plan Potential Rehabilitation Potential Fair Status of Condition at Evaluation Evolving Summary Impairments Pain,Strength,Balance,Bed Mobility,Transfers,Gait, Activity Tolerance Progress Towards Goals Slow Progress due to Medical Issues Assessment Summary Pt anxious to get OOB to try to use BSC. Pt with increased effort with getting to EOB to the right and increased time for scooting. Once standing, PT notices bleeding left calf. Family, pt, nsg, and other staff mention that this happens frequently with pt and nsg arrives to dress area. Pt is impulsive and presents with B LE flexion and functional weakness with standing, more on the LLE. He requires +2 max A for side stepping to the [facility] [place] [place]. Left with nsg nearby and pt to go for modified. Pt's speech con't to be difficult to understand with wet sounding secretions. Goals Bed Mobility Goal Independent Transfer Goal Standby Assistance,Front Wheeled Walker Gait Goal Standby Assistance,Front Wheel Walker Gait Distance 50 Other Goals improve bed mobility, transfer , ambulation using FWW SBA 150 ft up/down 2 steps using AD/PATIENT CARE NURSING ASSISTANT CGA Days to Meet Goals 10 Frequency of Treatment Frequency Of Treatment Once a Day Treatment Plan Physical Therapy Treatment Plan Bed Mobility Training,Transfer Training,Gait Training, Therapeutic Exercise,Balance Retraining,Discharge Planning, Hot or Cold Pack,Neuromuscular Re-ed,Coordination Retraining ,Manual Therapy Precautions Lumbar Precautions Log Roll,No Twisting,Limit Bending,Lifting Restriction of 10 lbs Other Precautions falls Recommendations To Nursing Amount of Assist Needed 2 Person Assist Discharge Recommendations PT Discharge Recommendations SNF Rehab Transportation Needs at Discharge Wheelchair/Cabulance
--- NOTE | 2023-11-30 13:29 | PC.NURSE ---
Addendum entered by Bhumi Sales R.N. 12/03/23 08:43: Late Note: Patient had a Barrium Swallow test, and he came back on a dysphagia Diet with [place] thick liquids. Medications in a thin carrier. Patient given oxycodone and tessalon pearls in carrier and swallowed with minimal cough. He has been more confused today but alert to family. Condom Catheter in place and patient resting. Original Note: Patient obtained a skin tear to his l.outter guerrero from bumping his leg on bsc. Allevyn dressing applied and patient has multiple bruises, skin tears, to both legs and arms. He has had multiple falls at home and was also previously on thinners. He is moving good with 2 person assist and walker. Tried to have a bowel movement on the toilet but unable. Patient is getting miralax.
--- NOTE | 2023-11-30 14:30 | SLP.IPNOTE ---
Addendum entered and electronically signed by Jonas Omalley 11/30/23 16:26: Addendum: NO STRAWS Original Note: Recommendations following MBS: Pt is a SILENT ASPIRATION RISK with thin liquids Oral care prior to meals and snacks Thin water OK following strict oral care - small amounts [place] thick liquids with meals Minced and moist solids (aside: Pt likes creamed soups) CHIN TUCK needed for ALL swallows Medications in a thinned carrier (e.g., applesauce) If pt's voice is gravelly, cue to cough hard/clear throat Contact ST with questions
--- NOTE | 2023-11-30 15:57 | ST.SWALLOW ---
Visit Care Team Role Provider Type Lindsay Chavarria MD Primary Care Provider Physician Specialty: Internal Medicine Address: [place], [place], [facility] Email: Rashmi Yip MD Emergency Provider Physician Referring Provider Specialty: Emergency Medicine Address: [address] [place] [address], [address] Email: [email or web address] [email or web address] Argueta MD Admit Provider Physician Attending Provider Specialty: Internal Medicine Address: [address] [place] [address], [facility] Fax: Email: [email or web address] Modified Barium Swallow Study PRODUCT SCIENTIST Modified Barium Swallow Study Start: 11/30/23 14:29 Freq: Status: Active Protocol: Document 11/30/23 14:40 LNK (Rec: 11/30/23 15:48 LNK [id number]) Modified Barium Swallow Study Total Time Visit Start Time 13:30 Visit Stop Time 14:00 Total Visit Minutes [address] Hubbard Reason for Referral Dysphagia; aspiration suspected Setting Setting Acute Care Patient Information Identification Type Name,Date of Patient History 82 years old male with history of atrial fibrillation, CAD with pacemaker/AICD, admitted with intractable back pain. Pt reported to nursing that he frequently has problems coughing and choking when he eats/drinks. Bedside swallow assessment indicated possible aspiration with thin liquids and recommended MBS. Subjective Observations Pt is very [facility]. According to his he has had hearing problems for most of his life. Pt's hearing aids were in place; however they had not been charged since yesterday morning. Pt presents with a cul-de-sac vocal quality related to decades of hearing difficulty Patient Positioning Position View Lateral Imaging Lateral View Textures Administered Trials Presented Thin Liquid via Spoon (IDDSI 0 ),Thin Liquid via Cup (IDDSI 0 ),Mildly Thick Liquid via Spoon (IDDSI 2),Mildly Thick Liquid via Cup (IDDSI 2), Extremely Thick Liquid via Spoon (IDDSI 4),Regular (IDDSI 7) Barium Tablet No The IDDSI Framework Protocol: IDDSI.1 Oral Impairment Source: The Modified Barium Swallow Impairment Profile (MBSImP??) Lip Closure Escape from interlab.space/lat .junct.;no ext. beyond vermilion border Tongue Control During Bolus Hold Cohesive bolus between tongue to palatal seal Bolus Preparation/Mastication Slow prolonged chewing/mashing with complete re-collection Bolus Transport/Lingual Motion Delayed initiation of tongue motion Oral Residue Trace residue lining oral structures Initiation of Pharyngeal Swallow Bolus head at pyriforms Additional Oral Impairment Observations OME and DKS observed to be grossly WNL. Mastication observed with rotary chew pattern. Good bolus formation, control with delayed AP transition and swallow initiation. Pharyngeal Impairment Source: The Modified Barium Swallow Impairment Profile (MBSImP??) Soft Palate Elevation Trace column of contrast between soft palate & pharyngeal wall Laryngeal Elevation Min.sup.move. thyroid cart. w/ min.approx.arytenoids to epiglot.petiole Anterior Hyoid Excursion No anterior movement Epiglottic Movement No inversion Laryngeal Vestibular Closure Incomplete; narrow column air/ contrast in laryngeal vestibule Pharyngeal Stripping Wave Present - diminished Pharyngoesophageal Segment Opening Complete distention & complete duration; no obstruction of flow Tongue Base Retraction Wide column of contrast/air betwn tongue base & post. pharyngeal wall Pharyngeal Residue Minimal to no pharyngeal clearance Location Diffuse (>3 areas) Additional Pharyngeal Impairment *Moderate reduction in tongue Observations base retraction strength *Minimal hyolaryngeal elevation and movement *Minimal to no epiglottic inversion (calcification of epiglottis?) negatively impaction airway protection *Contrast penetration into the laryngeal vestibule (PAS-5) with visible laryngeal residue *Jared tracheal aspiration with thin liquids (PAS-8) with tracheal residue. Aspiration occurred with nectar thick liquids when pt did not tuck chin *No reflexive cough or airway protection - cued cough weak, semi-productive *No aspiration observed with nectar thick liquids WHEN CHIN WAS TUCKED *Diffused contrast residue in pharynx - primarily in valeculla for solids and semisolid trials - potential aspiration risk as residue thinned by saliva A/P View The IDDSI Framework Protocol: IDDSI.1 Clinical Impressions Dysphagia Type Oral,Pharyngeal Findings *Moderate to severe oropharyngeal dysphagia with silent aspiration risk. *Pt safely tolerated nectar thick liquids with a chin tuck. *Diffuse residue with semi-solid and solid trials. able to partially clear residue with 2-3 subsequent swallows *Recommend nectar thick liquids and minced and moist texture. *Recommend ST at SNF for swallowing Recommendations Diet Liquids Order Mildly Thick (IDDSI 2) Diet Order Minced & Moist (IDDSI 5) Medication Recommendation Crushed in Carrier Comments Thin water OK with strict oral care prior to water and all PO intake Additional Dietary Needs Reminders to Use Strategies Aspiration Precautions Recommended Precautions Upright at 90 Degrees,Frequent Rest Periods,Small Bites/Sips ,Double Swallow,Liquids from Cup Additional Precautions One sip at a time Treatment Plan Therapy Recommendations Inpatient Speech Therapy, Outpatient Speech Therapy Additional Recommended Referrals ST recommended when discharged to SNF Therapy Strategy Recommendations Chin Tuck,Double Swallow,No Straw,Liquids from Cup,Small Bites and Sips Additional Strategies Recommended Cue pt to cough as tolerated ( back pain) as aspiration is SILENT Short Term Goals Pt and family will be educated in as well as understand a) the MBS results and b) safe diet/aspiration precaution recommendations. Business Insurance Agent Goals Pt will safely tolerate the least restrictive diet meeting hydration and nutritional needs without overt s/sx aspiration Placement Recommendation After Discharge Long-Term Facility
--- NOTE | 2023-11-30 16:02 | ST.IPDYTX ---
Visit Care Team Role Provider Type Lindsay Chavarria MD Primary Care Provider Physician Specialty: Internal Medicine Address: [place], [address] Email: Rashmi Yip MD Emergency Provider Physician Referring Provider Specialty: Emergency Medicine Address: [address] [place] [address], [address] Email: [email or web address] [email or web address] Argueta MD Admit Provider Physician Attending Provider Specialty: Internal Medicine Address: [address] [place] [address], [address] Fax: Email: [email or web address] RECEIVING SUPERVISOR Dysphagia Treatment RECEIVING SUPERVISOR Dysphagia Treatment Start: 11/30/23 14:40 Freq: Status: Active Protocol: Document 11/30/23 15:49 LNK (Rec: 11/30/23 15:57 LNK [id number]) Dysphagia Treatment Session Time Visit Start Time 14:00 Visit Stop Time 14:45 Setting Assessment Location Acute Care Visit Type Note Type Treatment Note Next Note Type Next Note Type Re-Evaluation Patient Information Identification Type Name,Date of Subjective Observations Pt was in bed following MBS. Family was present in pt's room. Pt was tired. Treatment Treatment Activities No PO trials wre attempted as pt had just returned from MBSS. MBSS results were described for the family and patient with all questions answered to their satisfaction. Diet (solids and liquids) recommendations described and discussed relative to the MBSS results and safe PO intake. Anatomy and physiology of swallowing re: respiratory system and aspiration risk ( silent) were described and discussed with all questions answered to patient and family satisfaction The IDDSI Framework Protocol: IDDSI.1 Assessment Patient Response to Treatment Excellent Rehab Potential Good Recommendations Recommendations Continue Current Diet Liquids Order Mildly Thick (IDDSI 2) Diet Order Minced & Moist (IDDSI 5) Medication Recommendations Crushed in Carrier Additional Dietary Needs Reminders to Use Strategies Aspiration Precautions Recommended Precautions Upright at 90 Degrees,Small Bites/Sips,Chin Tuck,Double Swallow,Liquids from Cup Treatment Plan Placement Recommendation after Discharge Halfway Facility Appropriate for Continued Therapy Yes Therapy Recommendations 1-2 x/day while inpatient Dysphagia Goals Pt and family will be educated in as well as understand a) the MBS results and b) safe diet/aspiration precaution recommendations. Pt will safely tolerate the least restrictive diet meeting hydration and nutritional needs without overt s/sx aspiration
--- NOTE | 2023-11-30 16:16 | DIET.CONS ---
Dietary Consultation Note Admission Date: 11/28/2023 10:04 Assessment: 83 y M admitted for intractable back pain. PMH CKD and DM. Nutrition consulted for low appetite. Met with pt and family at bedside. Reports slight decrease in po intakes over last month (around 75% of usual intake) and decrease during hospitalization (2 days of 25% or less). Has started Ensures recently (chocolate). No weight loss noted. NFPE not performed at this time. Ht: 182.88 cm Wt: 77.111 kg BMI: 23.0 UBW: 77 kg per pt and family report, 81.193 kg 1 yr ago per chart, no significant weight loss noted Last BM: () MNA: 11 Jerrell Score: 19 Diet: 11/28/23 Breakfast Heart Healthy Diet Diet Modifications: 11/30/23 Dinner Dysphagia Diet Diet Modifications: Food Texture: Level 5 - Minced & Moist Liquid Consistency: Level 1 - Slightly Thick Nutrition Percent Meal Consumed 25% 11/29/23 17:43 Percent Meal Consumed pt ref dinner, drank ensure 11/28/23 18:00 however. Labs: RBC 3.72 X10^6/uL (4.5-5.9) L 11/30/23 09:04 Hgb 12.6 g/dL (13.5-17.5) L 11/30/23 09:04 Hct 37.2 % (41-53) L 11/30/23 09:04 Creatinine 1.77 mg/dL (0.66-1.25) H 11/30/23 09:04 Nutrition Diagnosis: Inadequate oral intake r/t decreased ability to consume adequate intake aeb recorded po intakes 25% for 2 days Interventions: 1. ONS BID -mildly thick 2. Provided handout, briefly reviewed minced and moist diet EER: [id number] kcals (25-27 kcals/kg per BMI) 55 g protein (CKD) Monitoring/Evaluations: po intakes Electronically Signed by: Lana Ashby 11/30/23 16:16 Clinical Dietitian [address] [id number]
[2023-11-30] MEDS: OXYCODONE IR 5 MG TABLET PO ×2 (18:12→22:47)
[2023-11-30] MEDS: BENZONATATE 100 MG CAPSULE PO (18:13)
[2023-11-30] MEDS: SENNOSIDES 8.6 MG TABLET 17.2 MG PO (20:48)
[2023-11-30] MEDS: LATANOPROST 0.005% OPHTH 2.5 ML 1 DROPS EYE-BOTH (20:49)
[2023-11-30] MEDS: SODIUM CHLORIDE 0.9% 1,000 ML 1000 ML IV (23:15)
[2023-11-30] MEDS: dilTIAZem 5 MG/ML SDV 25 MG IV (23:23)
--- NOTE | 2023-11-30 23:30 | DI.RAD.S_ITS ---
PROCEDURE: XR CHEST 1V INDICATIONS: sudden onset dyspnea, poss aspiration TECHNIQUE: One view of the chest was acquired. COMPARISON: [facility], CR, XR CHEST 2V, 09/11/2023, 11:20. [facility], CR, XR CHEST 1V, 12/03/2022, 20:47. [facility], CR, XR CHEST 1V, 04/15/2022, 13:44. FINDINGS: Surgical changes and devices: Cardiac pacemaker is seen with pulse generator in the left chest. Lungs and pleura: Suspected moderate right pleural effusion. Hazy opacities are seen in the bilateral lung bases. Mediastinum: Cardiac silhouette is enlarged. Bones and chest wall: No suspicious bony lesions. Overlying soft tissues appear unremarkable. IMPRESSION: 1. Small to moderate right pleural effusion his increased when compared to 09/11/2023. 2. Bilateral hazy opacities are suspicious for mild edema versus aspiration or pneumonia. 3. Cardiomegaly. Approved by: Hever Gamble M.D. on 12/01/2023 at 0:30
[2023-11-30 23:43] LABS: Add Manual Diff / Slide Review NO; Basophils Absolute Auto 100 /uL (0-100); Basophils Percent Auto 0.6 % (0-2); Eosinophils Absolute Auto 0 /uL (0-450); Eosinophils Percent Auto 0.3 % (2-4); Hematocrit 37.6 % (41-53); Hemoglobin 12.7 g/dL (13.5-17.5); Lymphocytes Absolute Auto 1300 /uL (1100-4500); Lymphocytes Percent Auto 12.5 % (25-40); Mean Corpuscular HGB Conc 33.9 % (30-36); Mean Corpuscular Hemoglobin 33.9 PG (26-34); Monocytes Absolute Auto 600 /uL (0-900); Monocytes Percent Auto 5.9 % (3-14); Neutrophils Absolute Auto 8300 /uL (1500-7000); Neutrophils Percent Auto 80.7 % (50-75); Platelet Count 181 X10^3/uL (150-400); Red Blood Cell Count 3.76 X10^6/uL (4.5-5.9); Red Cell Distribution Width 14.7 % (11.6-14.8); White Blood Cell Count 10.3 X10^3/uL (4.5-11.0)
[2023-11-30] MEDS: LORazepam 2 MG/ML INJ 0.5 MG IV (23:43)
[2023-11-30] MEDS: FUROSEMIDE 40 MG/4 ML VIAL IV (23:43)
[2023-11-30] MEDS: HYDROMORPHONE 0.5 MG INJ IV (23:48)
[2023-11-30 23:50] LABS: Alanine Aminotransferase 17 IU/L (<50); Albumin 3.8 g/dL (3.5-5.0); Albumin Globulin Ratio 1.2 (1.0-2.8); Alkaline Phosphatase 90 U/L (38-126); Aspartate Aminotransferase 29 IU/L (17-59); BUN Creatinine Ratio 17.5 (6-22); Bilirubin Total 1.4 mg/dL (0.2-1.3); Blood Urea Nitrogen 33 mg/dL (9-20); Calcium 9.9 mg/dL (8.4-10.2); Carbon Dioxide 24 mmol/L (22-32); Chloride 95 mmol/L (98-107); Estimated Glomerular Filt Rate 34 mL/min (>60); Globulin 3.2 g/dL (1.7-4.1); Glucose 184 mg/dL (80-110); HEMOLYSIS < 15 (0-50); Magnesium 2.2 mg/dL (1.6-2.3); Potassium 4.3 mmol/L (3.4-5.1); Sodium 130 mmol/L (137-145)
[2023-12-01] VITALS (133 sets, daily range): BP systolic 63–141; BP diastolic 40–71; PULSE 79–140; RESP 10–48; TEMP 31–36.8; O2SAT 92–99
[2023-12-01 00:01] LABS: NT-proBNP (BNP-Adult 18+) 20300 pg/mL (<450); Troponin I 0.098 ng/mL (0.01-0.034)
--- NOTE | 2023-12-01 00:43 | PC.NURSE ---
Pt complained of back pain around 2244. Pt noted to be in significant respiratory distress with difficulty clearing secretions. Called RT around 2250 for a PRN breathing treatment. Pt did not improve with nebulizers. Hospitalist was notified about pt's status. Pt put on BiPAP and transferred to the ICU.
[2023-12-01] MEDS: HYDROMORPHONE 0.5 MG INJ IV (01:51)
--- NOTE | 2023-12-01 02:18 | PC.NURSE ---
Addendum entered by Mandy Restrepo R.N. 12/01/23 06:38: Hospitalist informed about BP 63/47(52) when IVF stopped as ordered. Patient has been sleeping, roused slightly and demonstrated FLACC 7 while turning and changing linen. Bipap remains on, FIO2 decreased to 60%. HR Afib 80s. Total UOP 200ml cloudy dario. Addendum entered by Mandy Restrepo R.N. 12/01/23 03:31: Notified Hospitalist about continued hypotension, IVF NS @ 125ml/hr ordered. Original Note: Patient admitted to ICU at 2315 for respiratory distress. Placed on Bipap, initially at 100% until SpO2 stable >92%, now currently at 80% 18/8, patient is tachypneaic 30s, LS coarse crackles throughout with coarse wheezes. NS bolus started per Hospitalist. HR A-fib RVR 140s, initial BP 107/66, then up to 142/65. Patient is very agitated, restless, and displaying FLACC 7-10/10. Diltiazem 10mg IV x2 given, Lasix 40mg IV, 0.5mg IV Ativan given, 0.5mg IV Dilaudid given. CXR and EKG done. Labs drawn. Condom catheter on, minimal UOP, bladder scanned ~170ml.
[2023-12-01] MEDS: SODIUM CHLORIDE 0.9% 1,000 ML 125 ML IV (03:36)
[2023-12-01 05:02] LABS: INR 1.6 (0.9-1.3); Prothrombin Time 18.1 SECONDS (9.4-12.5)
--- NOTE | 2023-12-01 08:50 | DI.RAD.S_ITS ---
PROCEDURE: XR CHEST 1V INDICATIONS: hypoxia TECHNIQUE: One view of the chest was acquired. COMPARISON: [facility], CR, XR CHEST 1V, 11/30/2023, 23:29. FINDINGS: Surgical changes and devices: Stable cardiac pacer. Lungs and pleura: Small right pleural effusion. Bilateral perihilar opacities. Mediastinum: Mediastinal contours appear normal. Heart is enlarged. Bones and chest wall: No suspicious bony lesions. Overlying soft tissues appear unremarkable. IMPRESSION: Bilateral perihilar opacities which could represent pulmonary edema and/or multifocal pneumonia. Small right pleural effusion. Dictated by: Sophie Bhatt MD, PhD on 12/01/2023 at 9:44 Approved by: Sophie Bhatt MD, PhD on 12/01/2023 at 9:45
--- NOTE | 2023-12-01 08:58 | PM.PN.1 ---
Subjective Subjective Interval history: Overnight patient went into A-fib RVR to 160's at 0100 and was given IV dilt. BP dropped to 70's/50's so then given IVF bolus with some improvement to 90's systolic. Then given IV lasix which dropped the pressure back to 80's/50's. Patient had increased work of breathing so Bipap was placed. This morning labs showed increased WBC of 12, procal 2.32 and CXR with worsening bilateral infiltrates. Broad spectrum abx, echo, and blood cutlures ordered. TeleICU consulted and pressors were started. Echo returned showing EF 20-25%, mod-severe right systolic dysfunction, severe low-gradient aortic stenosis, RVSP 50. Patient is currently comfortable on bipap. Mayo placed and 350cc out. ABG shows pH 7.33, pCO2 44, bicarb 24 and pO2 77. Family at bedside and their questions were answered. Exam Vital Signs (past 8 hours): - 12/01/23 01:00 12/01/23 01:00 12/01/23 01:05 Pulse Rate 118 H 118 H Respiratory Rate 39 H 39 H Blood Pressure 83/51 L 83/51 L Pulse Oximetry 97 97 Oxygen Delivery Method Fraction of Inspired Oxygen 80 12/01/23 01:16 12/01/23 01:16 12/01/23 01:17 Pulse Rate 117 H 118 H Respiratory Rate 45 H 48 H Blood Pressure 78/40 L Pulse Oximetry 97 95 Oxygen Delivery Method Fraction of Inspired Oxygen 12/01/23 01:17 12/01/23 01:23 12/01/23 01:23 Pulse Rate 124 H Respiratory Rate 34 H Blood Pressure 76/50 L 88/62 L Pulse Oximetry 96 Oxygen Delivery Method Fraction of Inspired Oxygen 12/01/23 01:30 12/01/23 01:30 12/01/23 01:40 Pulse Rate 124 H 131 H Respiratory Rate 45 H 26 H Blood Pressure 95/62 Pulse Oximetry 96 95 Oxygen Delivery Method Fraction of Inspired Oxygen 12/01/23 01:40 12/01/23 01:50 12/01/23 01:50 Pulse Rate 126 H Respiratory Rate 30 H Blood Pressure 85/50 L 98/55 L Pulse Oximetry 96 Oxygen Delivery Method Fraction of Inspired Oxygen 12/01/23 02:00 12/01/23 02:00 12/01/23 02:10 Pulse Rate 122 H 122 H Respiratory Rate 24 25 H Blood Pressure 90/52 L Pulse Oximetry 94 94 Oxygen Delivery Method Fraction of Inspired Oxygen 12/01/23 02:10 12/01/23 02:21 12/01/23 02:21 Pulse Rate 113 H Respiratory Rate 21 Blood Pressure 82/55 L 98/53 L Pulse Oximetry 92 Oxygen Delivery Method Fraction of Inspired Oxygen 12/01/23 02:30 12/01/23 02:30 12/01/23 02:40 Pulse Rate 108 H Respiratory Rate 17 Blood Pressure 94/55 L 79/51 L Pulse Oximetry 93 Oxygen Delivery Method Fraction of Inspired Oxygen 12/01/23 02:40 12/01/23 02:52 12/01/23 02:52 Pulse Rate 105 H 104 H Respiratory Rate 20 17 Blood Pressure 72/44 L Pulse Oximetry 94 93 Oxygen Delivery Method Fraction of Inspired Oxygen 12/01/23 03:00 12/01/23 03:00 12/01/23 03:10 Pulse Rate 98 H Respiratory Rate 17 Blood Pressure 78/53 L 77/52 L Pulse Oximetry 94 Oxygen Delivery Method Fraction of Inspired Oxygen 12/01/23 03:10 12/01/23 03:20 12/01/23 03:20 Pulse Rate 105 H 105 H Respiratory Rate 18 22 Blood Pressure 76/52 L Pulse Oximetry 94 95 Oxygen Delivery Method Fraction of Inspired Oxygen 12/01/23 03:30 12/01/23 03:30 12/01/23 03:40 Pulse Rate 103 H 107 H Respiratory Rate 21 17 Blood Pressure 82/60 L Pulse Oximetry 94 94 Oxygen Delivery Method Fraction of Inspired Oxygen 12/01/23 03:40 12/01/23 03:46 12/01/23 03:50 Pulse Rate 104 H Respiratory Rate 16 Blood Pressure 74/57 L Pulse Oximetry 95 Oxygen Delivery Method Fraction of Inspired Oxygen 80 12/01/23 03:50 12/01/23 04:00 12/01/23 04:00 Pulse Rate 106 H Respiratory Rate 15 Blood Pressure 78/55 L 87/62 L Pulse Oximetry 95 Oxygen Delivery Method Fraction of Inspired Oxygen 12/01/23 04:00 12/01/23 04:10 12/01/23 04:10 Pulse Rate 101 H Respiratory Rate 19 Blood Pressure 83/50 L Pulse Oximetry 96 Oxygen Delivery Method BiPAP Fraction of Inspired Oxygen 12/01/23 04:21 12/01/23 04:21 12/01/23 04:30 Pulse Rate 107 H 106 H Respiratory Rate 17 16 Blood Pressure 99/59 L Pulse Oximetry 96 96 Oxygen Delivery Method Fraction of Inspired Oxygen 12/01/23 04:30 12/01/23 04:40 12/01/23 04:40 Pulse Rate 109 H Respiratory Rate 15 Blood Pressure 81/50 L 78/52 L Pulse Oximetry 96 Oxygen Delivery Method Fraction of Inspired Oxygen 12/01/23 04:50 12/01/23 04:50 12/01/23 05:00 Pulse Rate 93 H Respiratory Rate 15 Blood Pressure 87/52 L 88/52 L Pulse Oximetry 96 Oxygen Delivery Method Fraction of Inspired Oxygen 12/01/23 05:00 12/01/23 05:11 12/01/23 05:11 Pulse Rate 97 H 94 H Respiratory Rate 16 15 Blood Pressure 83/55 L Pulse Oximetry 96 96 Oxygen Delivery Method Fraction of Inspired Oxygen 12/01/23 05:20 12/01/23 05:20 12/01/23 05:30 Pulse Rate 93 H 96 H Respiratory Rate 16 15 Blood Pressure 77/59 L Pulse Oximetry 96 96 Oxygen Delivery Method Fraction of Inspired Oxygen 12/01/23 05:31 12/01/23 05:31 12/01/23 05:40 Pulse Rate 93 H Respiratory Rate 16 Blood Pressure 90/58 L 88/55 L Pulse Oximetry 96 Oxygen Delivery Method Fraction of Inspired Oxygen 12/01/23 05:40 12/01/23 05:50 12/01/23 05:50 Pulse Rate 96 H 91 H Respiratory Rate 16 15 Blood Pressure 87/51 L Pulse Oximetry 97 96 Oxygen Delivery Method Fraction of Inspired Oxygen 12/01/23 06:00 12/01/23 06:07 12/01/23 06:07 Pulse Rate 101 H 92 H Respiratory Rate 23 23 Blood Pressure 90/52 L Pulse Oximetry 96 96 Oxygen Delivery Method Fraction of Inspired Oxygen 12/01/23 06:10 12/01/23 06:10 12/01/23 06:20 Pulse Rate 91 H Respiratory Rate 16 Blood Pressure 83/52 L 69/47 L Pulse Oximetry 94 Oxygen Delivery Method Fraction of Inspired Oxygen 12/01/23 06:20 12/01/23 06:25 12/01/23 06:25 Pulse Rate 83 88 Respiratory Rate 15 17 Blood Pressure 63/47 L Pulse Oximetry 93 93 Oxygen Delivery Method Fraction of Inspired Oxygen 12/01/23 06:30 12/01/23 06:30 12/01/23 06:43 Pulse Rate 82 Respiratory Rate 15 Blood Pressure 74/48 L 87/51 L Pulse Oximetry 94 Oxygen Delivery Method Fraction of Inspired Oxygen 12/01/23 06:43 12/01/23 06:50 12/01/23 06:50 Pulse Rate 91 H 88 Respiratory Rate 14 14 Blood Pressure 83/53 L Pulse Oximetry 93 95 Oxygen Delivery Method Fraction of Inspired Oxygen 12/01/23 07:00 12/01/23 07:00 12/01/23 07:10 Pulse Rate 86 87 Respiratory Rate 14 16 Blood Pressure 82/50 L Pulse Oximetry 95 96 Oxygen Delivery Method Fraction of Inspired Oxygen 12/01/23 07:10 12/01/23 07:20 12/01/23 07:20 Pulse Rate 84 Respiratory Rate 15 Blood Pressure 82/52 L 79/58 L Pulse Oximetry 95 Oxygen Delivery Method Fraction of Inspired Oxygen 12/01/23 07:30 12/01/23 07:30 12/01/23 07:36 Pulse Rate 82 Respiratory Rate 15 Blood Pressure 90/53 L 90/53 L Pulse Oximetry 94 Oxygen Delivery Method Fraction of Inspired Oxygen 50 12/01/23 07:40 12/01/23 07:40 12/01/23 07:50 Pulse Rate 81 Respiratory Rate 15 Blood Pressure 83/53 L 79/53 L Pulse Oximetry 94 Oxygen Delivery Method Fraction of Inspired Oxygen 12/01/23 07:50 12/01/23 08:00 12/01/23 08:00 Pulse Rate 81 80 Respiratory Rate 13 16 Blood Pressure 86/51 L Pulse Oximetry 92 93 Oxygen Delivery Method Fraction of Inspired Oxygen Fraction of Inspired Oxygen 50 Oxygen Delivery Method BiPAP Oxygen Flow Rate 0 Narrative Exam Narrative: NAD, on bipap Lungs have diffuse wheezes. Heart is regular, no murmur gallop or rub. Abdomen is soft, non distended. Extremities are free of edema. Objective Labs 12/01/23 08:57 12/01/23 08:57 Labs: Laboratory Results - last 24 hr 11/30/23 11/30/23 12/01/23 09:04 23:27 04:13 WBC 7.4 10.3 RBC 3.72 L 3.76 L Hgb 12.6 L 12.7 L Hct 37.2 L 37.6 L MCV 100.2 H 100.0 MCH 33.8 33.9 MCHC 33.7 33.9 RDW 15.0 H 14.7 Plt Count 148 L 181 Neut % (Auto) 67.2 80.7 H Lymph % (Auto) 17.4 L 12.5 L Rutherford % (Auto) 13.7 5.9 Eos % (Auto) 1.4 L 0.3 L Baso % (Auto) 0.3 0.6 Neut # (Auto) 5000 8300 H Lymph # (Auto) 1300 1300 [place] # (Auto) 1000 H 600 Eos # (Auto) 100 0 Baso # (Auto) 0 100 PT 18.1 H INR 1.6 H Sodium 131 L 130 L Potassium 4.0 4.3 Chloride 98 95 L Carbon Dioxide 27 24 BUN 31 H 33 H Creatinine 1.77 H 1.89 H Estimated GFR 37 L 34 L BUN/Creatinine Ratio 17.5 17.5 Glucose 174 H 184 H Calcium 9.8 9.9 Magnesium 2.2 Total Bilirubin 1.4 H 1.4 H AST 27 29 ALT 15 17 Alkaline Phosphatase 93 90 Troponin I 0.098 H NT-Pro-B Natriuret Pep 41336 H Total Protein 7.0 7.0 Albumin 3.6 3.8 Globulin 3.4 3.2 Albumin/Globulin Ratio 1.1 1.2 PFSH Medical History Coronary artery disease Atrial fibrillation Anticoagulated Social History household members: spouse Smoking Status: Unknown if ever smoked Assessment & Plan Assessment & Plan narrative: # septic shock 2/2 acute aspiration pneumonia # acute hypoxic resp failure # L3 and L4 Compression fracture with intractable pain, present on admission and active. # Acute on chronic A-fib, with RVR now resolved, present on admission and stable. # BPH, present on admission and stable. # HFrEF of 20-25%, previously 27% in October 2023 # severe low-gradient PLAN: -start vanc and zosyn, check MRSA screen. F/up blood cultures. -continue pressors, goal MAP >60 -increase amiodarone to 200mg BID -appreciate tele-ICU consult. Nebs, lasix, and IV steroids ordered -hold narcotics for now -continue bipap -strict I/O's via mayo -a 20min GOC discussion with family on 11/30 explained the severity of his current state of health and they maintained DNR and continuing antibiotics to try to reverse sepsis DNR is proxy decision maker. Dispo: ICU Quality VTE Deep Vein Thrombosis/Pulmonary Embolism Present on Admission: No
--- NOTE | 2023-12-01 09:00 | DI.ECHO.S_ITS ---
[facility]---------+ [facility] : : [address] : [place] : : [id number] : : Phone: [phone] Echocardiogram Report + + :Name: OSCAR PHELAN Study Date: 12/01/2023 Height: 72 in : :[facility] ReadingLocation: Weight: 170 lb : : Gender: Male BSA: 2.0 m2 : :: 1940 Age: 83 yrs BP: 100/66 mmHg: :Reason For Study: SHOCK : :Ordering Physician: LACEY, : :DARIAN Bragg Performed By: Gita Simpson : :Referring: DARIAN RAHMAN : + + Interpretation Summary There is mild concentric left ventricular hypertrophy. The ejection fraction is estimated to be 20-25%. Diastolic function could not be accurately assessed due to atrial fibrillation. The right ventricle is mild to moderately dilated. Right ventricular systolic function is moderate to severely reduced. There is severe biatrial enlargement. The reduced mitral leaflet separation suggests decreased flow through the mitral valve and poor cardiac output. There is mild mitral regurgitation. Suspect severe low-flow low gradient aortic stenosis. There is mild to moderate tricuspid regurgitation. The right ventricular systolic pressure is estimated to be at least 50 mmHg based on an estimated right atrial pressure of 15 mm Hg. Procedure: A two-dimensional transthoracic echocardiogram with color flow and Doppler was performed. The study quality was technically adequate. There is no prior echocardiogram noted for this patient. The patient was in atrial fibrillation with heart rates between 78-94 bpm during the exam. Left Ventricle: The left ventricle is normal in size. There is mild concentric left ventricular hypertrophy. The ejection fraction is estimated to be 20-25%. Diastolic function could not be accurately assessed due to atrial fibrillation. Right Ventricle: There is a pacemaker lead in the right ventricle. The right ventricle is mild to moderately dilated. Right ventricular systolic function is moderate to severely reduced. Atria: There is severe biatrial enlargement. There is no Doppler evidence for an interatrial shunt. Mitral Valve: There is mild mitral annular calcification. The mitral valve leaflets are moderately calcified. The reduced mitral leaflet separation suggests decreased flow through the mitral valve and poor cardiac output. The mitral valve mean gradient is 2.6 mmHg. There is mild mitral regurgitation. Aortic Valve: The aortic valve is trileaflet. The aortic valve is moderately calcified. There is severely reduced leaflet mobility. The peak aortic velocity is 3.0 m/sec. The aortic valve mean gradient is 23 mmHg. The calculated aortic valve area is 0.67 cm2. The dimensionless index is 0.16. No aortic regurgitation is present. Tricuspid Valve: The tricuspid valve leaflets are thin and pliable. There is mild to moderate tricuspid regurgitation. The right ventricular systolic pressure is estimated to be at least 50 mmHg based on an estimated right atrial pressure of 15 mm Hg. Pulmonic Valve: The pulmonic valve is not well seen, but is grossly normal. There is trace pulmonic regurgitation. Great Vessels: The aortic root is normal size. The dimensions of the ascending aorta are normal. The IVC is dilated (diameter is greater than 2.1 cm) and it collapses less than 50% with a sniff. This suggests a high right atrial pressure of 15 mm Hg. Pericardium/ Pleura There is a trivial pericardial effusion noted. There is no pleural effusion. MMode/2D Measurements & Calculations LVIDd: 5.0 cm LVOT diam: 2.2 cm LVIDs: 4.4 cm Ao root diam: 3.3 cm FS: 11.4 % asc Aorta Diam: 3.5 cm EPSS: 2.9 cm Ao Arch Diam (Prox Trans): 2.4 cm IVSd: 1.3 cm LVPWd: 1.2 cm LV rand. diameter/BSA (cm/m^2): 2.5 LV sys. diameter/BSA (cm/m^2): 2.2 LA A2 area: 29.7 cm2 RA long axis: 6.0 cm LA A4 area: 31.2 cm2 RA area: 29.2 cm2 LA length (vol): 6.7 cm RA vol: 120.4 ml LA vol: 118.3 ml RA : 60.6 ml/m2 LA vol index: 59.5 ml/m2 IVC diam: 2.6 cm RVD1 (basal): 4.7 cm RVD2 (mid): 3.7 cm TAPSE: 0.97 cm Doppler Measurements & Calculations Ao V2 max: 300.1 cm/sec LVOT Max Juan: 52.9 cm/sec Ao V2 mean: 219.0 cm/sec LV V1 max P.1 mmHg Ao max P.1 mmHg LV V1 VTI: 10.5 cm Ao mean P.1 mmHg COMFORT(I,D): 0.61 cm2 Ao V2 VTI: 66.3 cm COMFORT(V,D): 0.67 cm2 sev ratio: 0.16 COMFORT indexed to BSA (cm^2/m^2): 0.31 MV E max juan: 99.8 cm/sec TR max juan: 299.6 cm/sec MV A max juan: 1.1 cm/sec TR max P.9 mmHg MV E/A: 95.1 PA pr(Accel): 44.7 mmHg Med Peak E' Juan: 3.0 cm/sec E/E' med: 32.7 Lat Peak E' Juan: 4.3 cm/sec E/E' lat: 23.4 E/e' average: 28.1 MV dec time: 0.18 sec MVA(VTI): 1.8 cm2 MV V2 mean: 70.4 cm/sec SV(LVOT): 40.3 ml MV mean P.6 mmHg MV V2 VTI: 22.9 cm Reading Physician:01:06 PM
[2023-12-01 09:13] LABS: Add Manual Diff / Slide Review NO; Basophils Absolute Auto 0 /uL (0-100); Basophils Percent Auto 0.1 % (0-2); Eosinophils Absolute Auto 0 /uL (0-450); Hemoglobin 11.3 g/dL (13.5-17.5); Lymphocytes Absolute Auto 600 /uL (1100-4500); Lymphocytes Percent Auto 5.3 % (25-40); Mean Corpuscular HGB Conc 33.3 % (30-36); Mean Corpuscular Hemoglobin 33.4 PG (26-34); Mean Corpuscular Volume 100.3 fL (80-100); Monocytes Absolute Auto 900 /uL (0-900); Monocytes Percent Auto 7.8 % (3-14); Neutrophils Absolute Auto 10600 /uL (1500-7000); Neutrophils Percent Auto 86.8 % (50-75); Platelet Count 139 X10^3/uL (150-400); Red Blood Cell Count 3.39 X10^6/uL (4.5-5.9); Red Cell Distribution Width 14.9 % (11.6-14.8); White Blood Cell Count 12.2 X10^3/uL (4.5-11.0)
[2023-12-01 09:34] LABS: Alanine Aminotransferase 14 IU/L (<50); Alkaline Phosphatase 69 U/L (38-126); Aspartate Aminotransferase 31 IU/L (17-59); Bilirubin Total 1.3 mg/dL (0.2-1.3); Blood Urea Nitrogen 32 mg/dL (9-20); Calcium 8.8 mg/dL (8.4-10.2); Carbon Dioxide 24 mmol/L (22-32); Chloride 102 mmol/L (98-107); Estimated Glomerular Filt Rate 40 mL/min (>60); Globulin 2.9 g/dL (1.7-4.1); Glucose 161 mg/dL (80-110); HEMOLYSIS < 15 (0-50); Potassium 4.2 mmol/L (3.4-5.1); Sodium 131 mmol/L (137-145); Total Protein 5.9 g/dL (6.3-8.2)
[2023-12-01 09:54] LABS: Lactate (Lactic Acid) 1.5 mmol/L (0.7-2.1)
[2023-12-01] MEDS: ENOXAPARIN 40 MG/0.4 ML SYRINGE SUBCUT (09:58)
[2023-12-01] MEDS: PIPERACILLIN/TAZO 4.5 GM in SODIUM CHLORIDE 0.9% 100 ML IV (09:58)
[2023-12-01 09:59] LABS: Procalcitonin 2.32 ng/mL (<0.5)
--- NOTE | 2023-12-01 10:07 | OT.IPNOTE ---
Checked with nursing on pt, pt not appropriate today for OT- pt now on Bipap. To check on the pt tomorrow.
--- NOTE | 2023-12-01 10:38 | CM.DPC ---
DCP Cont. Reviewed EMR and team rounds for status updates. Pt was moved to the ICU and is on bipap now. Due to his worsening condition, this COMMISSIONS ANALYST called [facility] and paused the admission, as he was supposed to d/c there today. Will monitor for possible d/c tomorrow if pt improves in overall condition.
[2023-12-01 10:40] LABS: Allen Test for ABG Passed? Yes, Passed; Blood Gas Collection Site Right Radial; Fractionated Inspired Oxygen 50; HCO3 ABG 23 mmol/L (23-27); Oxygen Saturation ABG 94 % (95-100); PCO2 ABG 44.4 mmHg (35-45); PO2 ABG 77 mmHg (80-100); TCO2 ABG 24 mmol/L (23-27); pH ABG 7.33 (7.35-7.45)
--- NOTE | 2023-12-01 11:01 | PM.CN.EICU ---
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 The patient was recently in the ED for similar symptoms after he fell. Denies any aqua inguina symptoms. Laboratory was unremarkable. UA shows WBC 5/10 but the patient denies any dysuria. CT scan of the lumbar spine shows multilevel loss of body weight of L4, L3 along with degenerative disc disease. The patient was given fentanyl 75 mcg, Tylenol 1 g IV, lidocaine patch and NS 1 L bolus in the ED / overnight had episodes of afib rvr and hypotension which responded to cardizem and ivf bolus eventually went into resp failure requiring bipap and diuretics. this am bp borderline, poor mental status on bipap [facility] Medical History Coronary artery disease Atrial fibrillation Anticoagulated Social History household members: spouse Smoking Status: Unknown if ever smoked Current Medications Current Medications Medications: Home Medications amiodarone 200 mg tablet (Pacerone) 100 mg PO DAILY 05/21/21 [History Confirmed 11/28/23] finasteride 5 mg tablet (Proscar) 5 mg PO DAILY 05/21/21 [History Confirmed 11/28/23] latanoprost 0.005 % eye drops (Xalatan) 1 drp EYE-BOTH DAILY 05/21/21 [History Confirmed 11/28/23] spironolactone 25 mg tablet (Aldactone) 25 mg PO DAILY 05/21/21 [History Confirmed 11/28/23] tamsulosin 0.4 mg capsule (Flomax) 0.4 mg PO DAILY 05/21/21 [History Confirmed 11/28/23] metoprolol succinate 25 mg tablet,extended release 24 hr 25 mg PO BID 11/28/23 [History Confirmed 11/28/23] torsemide 20 mg tablet 20 mg PO DAILY 11/28/23 [History Confirmed 11/28/23] atorvastatin 40 mg tablet 40 mg PO DAILY 11/30/23 [History Confirmed 11/30/23] potassium chloride 20 mEq tablet,extended release 20 meq PO BID 11/30/23 [History Confirmed 11/30/23] Visit Medications (administered) Generic Name Dose Route Start Last Admin Trade Name Luiq PRN Reason Stop Dose Admin Benzonatate 100 mg 11/29/23 16:26 11/30/23 18:13 Benzonatate 100 Mg Capsule PO 100 mg TID PRN Administration Cough Cyclobenzaprine HCl 5 mg 11/28/23 06:00 12/01/23 06:15 Cyclobenzaprine 10 Mg Tablet PO Not Given Q8HR JOAN Enoxaparin Sodium 40 mg 11/28/23 10:30 12/01/23 09:58 Enoxaparin 40 Mg/0.4 Ml Syringe SUBCUT 40 mg DAILY JOAN Administration Fentanyl 25 mcg 11/30/23 10:15 11/30/23 11:09 Fentanyl 25 Mcg/Patch TOP 25 mcg Q72H JOAN Administration Finasteride 5 mg 11/28/23 09:00 11/30/23 09:33 Finasteride 5 Mg Tablet PO 5 mg DAILY JOAN Administration Latanoprost 1 drops 11/28/23 21:00 11/30/23 20:49 Latanoprost 0.005% Ophth 2.5 Ml EYE-BOTH 1 drops BEDTIME JOAN Administration Metoprolol Succinate 25 mg 11/28/23 09:00 11/30/23 21:01 Metoprolol Er 25 Mg Tablet PO Not Given BID JOAN Polyethylene Glycol 17 gm 11/29/23 11:30 11/30/23 09:34 Polyethylene Glycol 3350 17 Gm Powd.Pack PO 17 gm DAILY JOAN Administration Sennosides 17.2 mg 11/28/23 21:00 11/30/23 20:48 Sennosides 8.6 Mg Tablet PO 17.2 mg BEDTIME JOAN Administration Spironolactone 25 mg 11/28/23 09:00 11/30/23 09:34 Spironolactone 25 Mg Tablet PO 25 mg DAILY JOAN Administration Tamsulosin HCl 0.4 mg 11/28/23 09:00 11/30/23 09:33 Tamsulosin 0.4 Mg Capsule PO 0.4 mg DAILY JOAN Administration Torsemide 20 mg 11/28/23 09:00 11/30/23 09:34 Torsemide 10 Mg Tablet PO 20 mg DAILY JOAN Administration Exam Vital Signs (past 8 hours): - 12/01/23 03:10 12/01/23 03:10 12/01/23 03:20 Temperature Pulse Rate 105 H 105 H Respiratory Rate 18 22 Blood Pressure 77/52 L Pulse Oximetry 94 95 Oxygen Delivery Method Fraction of Inspired Oxygen 12/01/23 03:20 12/01/23 03:30 12/01/23 03:30 Temperature Pulse Rate 103 H Respiratory Rate 21 Blood Pressure 76/52 L 82/60 L Pulse Oximetry 94 Oxygen Delivery Method Fraction of Inspired Oxygen 12/01/23 03:40 12/01/23 03:40 12/01/23 03:46 Temperature Pulse Rate 107 H Respiratory Rate 17 Blood Pressure 74/57 L Pulse Oximetry 94 Oxygen Delivery Method Fraction of Inspired Oxygen 80 12/01/23 03:50 12/01/23 03:50 12/01/23 04:00 Temperature Pulse Rate 104 H 106 H Respiratory Rate 16 15 Blood Pressure 78/55 L Pulse Oximetry 95 95 Oxygen Delivery Method Fraction of Inspired Oxygen 12/01/23 04:00 12/01/23 04:00 12/01/23 04:10 Temperature Pulse Rate 101 H Respiratory Rate 19 Blood Pressure 87/62 L Pulse Oximetry 96 Oxygen Delivery Method BiPAP Fraction of Inspired Oxygen 12/01/23 04:10 12/01/23 04:21 12/01/23 04:21 Temperature Pulse Rate 107 H Respiratory Rate 17 Blood Pressure 83/50 L 99/59 L Pulse Oximetry 96 Oxygen Delivery Method Fraction of Inspired Oxygen 12/01/23 04:30 12/01/23 04:30 12/01/23 04:40 Temperature Pulse Rate 106 H 109 H Respiratory Rate 16 15 Blood Pressure 81/50 L Pulse Oximetry 96 96 Oxygen Delivery Method Fraction of Inspired Oxygen 12/01/23 04:40 12/01/23 04:50 12/01/23 04:50 Temperature Pulse Rate 93 H Respiratory Rate 15 Blood Pressure 78/52 L 87/52 L Pulse Oximetry 96 Oxygen Delivery Method Fraction of Inspired Oxygen 12/01/23 05:00 12/01/23 05:00 12/01/23 05:11 Temperature Pulse Rate 97 H Respiratory Rate 16 Blood Pressure 88/52 L 83/55 L Pulse Oximetry 96 Oxygen Delivery Method Fraction of Inspired Oxygen 12/01/23 05:11 12/01/23 05:20 12/01/23 05:20 Temperature Pulse Rate 94 H 93 H Respiratory Rate 15 16 Blood Pressure 77/59 L Pulse Oximetry 96 96 Oxygen Delivery Method Fraction of Inspired Oxygen 12/01/23 05:30 12/01/23 05:31 12/01/23 05:31 Temperature Pulse Rate 96 H 93 H Respiratory Rate 15 16 Blood Pressure 90/58 L Pulse Oximetry 96 96 Oxygen Delivery Method Fraction of Inspired Oxygen 12/01/23 05:40 12/01/23 05:40 12/01/23 05:50 Temperature Pulse Rate 96 H Respiratory Rate 16 Blood Pressure 88/55 L 87/51 L Pulse Oximetry 97 Oxygen Delivery Method Fraction of Inspired Oxygen 12/01/23 05:50 12/01/23 06:00 12/01/23 06:07 Temperature Pulse Rate 91 H 101 H 92 H Respiratory Rate 15 23 23 Blood Pressure Pulse Oximetry 96 96 96 Oxygen Delivery Method Fraction of Inspired Oxygen 12/01/23 06:07 12/01/23 06:10 12/01/23 06:10 Temperature Pulse Rate 91 H Respiratory Rate 16 Blood Pressure 90/52 L 83/52 L Pulse Oximetry 94 Oxygen Delivery Method Fraction of Inspired Oxygen 12/01/23 06:20 12/01/23 06:20 12/01/23 06:25 Temperature Pulse Rate 83 88 Respiratory Rate 15 17 Blood Pressure 69/47 L Pulse Oximetry 93 93 Oxygen Delivery Method Fraction of Inspired Oxygen 12/01/23 06:25 12/01/23 06:30 12/01/23 06:30 Temperature Pulse Rate 82 Respiratory Rate 15 Blood Pressure 63/47 L 74/48 L Pulse Oximetry 94 Oxygen Delivery Method Fraction of Inspired Oxygen 12/01/23 06:43 12/01/23 06:43 12/01/23 06:50 Temperature Pulse Rate 91 H 88 Respiratory Rate 14 14 Blood Pressure 87/51 L Pulse Oximetry 93 95 Oxygen Delivery Method Fraction of Inspired Oxygen 12/01/23 06:50 12/01/23 07:00 12/01/23 07:00 Temperature Pulse Rate 86 Respiratory Rate 14 Blood Pressure 83/53 L 82/50 L Pulse Oximetry 95 Oxygen Delivery Method Fraction of Inspired Oxygen 12/01/23 07:10 12/01/23 07:10 12/01/23 07:20 Temperature Pulse Rate 87 84 Respiratory Rate 16 15 Blood Pressure 82/52 L Pulse Oximetry 96 95 Oxygen Delivery Method Fraction of Inspired Oxygen 12/01/23 07:20 12/01/23 07:30 12/01/23 07:30 Temperature Pulse Rate 82 Respiratory Rate 15 Blood Pressure 79/58 L 90/53 L Pulse Oximetry 94 Oxygen Delivery Method Fraction of Inspired Oxygen 12/01/23 07:36 12/01/23 07:40 12/01/23 07:40 Temperature Pulse Rate 81 Respiratory Rate 15 Blood Pressure 90/53 L 83/53 L Pulse Oximetry 94 Oxygen Delivery Method Fraction of Inspired Oxygen 50 12/01/23 07:50 12/01/23 07:50 12/01/23 08:00 Temperature Pulse Rate 81 80 Respiratory Rate 13 16 Blood Pressure 79/53 L Pulse Oximetry 92 93 Oxygen Delivery Method Fraction of Inspired Oxygen 12/01/23 08:00 12/01/23 08:10 12/01/23 08:10 Temperature 98.3 F Pulse Rate 82 Respiratory Rate 16 Blood Pressure 86/51 L 86/60 L Pulse Oximetry 93 Oxygen Delivery Method Fraction of Inspired Oxygen 12/01/23 08:20 12/01/23 08:20 12/01/23 08:30 Temperature Pulse Rate 81 Respiratory Rate 16 Blood Pressure 85/52 L 88/53 L Pulse Oximetry 93 Oxygen Delivery Method Fraction of Inspired Oxygen 12/01/23 08:30 12/01/23 08:40 12/01/23 08:40 Temperature Pulse Rate 83 82 Respiratory Rate 15 15 Blood Pressure 95/56 L Pulse Oximetry 94 94 Oxygen Delivery Method Fraction of Inspired Oxygen 12/01/23 08:50 12/01/23 08:50 12/01/23 09:00 Temperature Pulse Rate 83 Respiratory Rate 14 Blood Pressure 81/58 L Pulse Oximetry 94 Oxygen Delivery Method BiPAP Fraction of Inspired Oxygen 12/01/23 09:00 12/01/23 09:03 12/01/23 09:03 Temperature Pulse Rate 85 84 Respiratory Rate 15 16 Blood Pressure 100/56 L Pulse Oximetry 94 94 Oxygen Delivery Method Fraction of Inspired Oxygen 12/01/23 09:16 12/01/23 09:16 12/01/23 09:30 Temperature Pulse Rate 88 81 Respiratory Rate 26 H 17 Blood Pressure 86/55 L Pulse Oximetry 95 95 Oxygen Delivery Method Fraction of Inspired Oxygen 12/01/23 09:30 12/01/23 09:45 12/01/23 09:45 Temperature Pulse Rate 80 Respiratory Rate 26 H Blood Pressure 85/56 L 85/58 L Pulse Oximetry 94 Oxygen Delivery Method Fraction of Inspired Oxygen Fraction of Inspired Oxygen 50 Oxygen Delivery Method BiPAP Oxygen Flow Rate 0 Objective Labs 12/01/23 08:57 12/01/23 08:57 Labs: Laboratory Results - last 24 hr 11/30/23 12/01/23 12/01/23 23:27 04:13 08:57 WBC 10.3 12.2 H RBC 3.76 L 3.39 L Hgb 12.7 L 11.3 L Hct 37.6 L 34.0 L MCV 100.0 100.3 H MCH 33.9 33.4 MCHC 33.9 33.3 RDW 14.7 14.9 H Plt Count 181 139 L Neut % (Auto) 80.7 H 86.8 H Lymph % (Auto) 12.5 L 5.3 L [place] % (Auto) 5.9 7.8 Eos % (Auto) 0.3 L 0.0 L Baso % (Auto) 0.6 0.1 Neut # (Auto) 8300 H 39134 H Lymph # (Auto) 1300 600 L [place] # (Auto) 600 900 Eos # (Auto) 0 0 Baso # (Auto) 100 0 PT 18.1 H INR 1.6 H ABG Sample Site ABG pH ABG pCO2 ABG pO2 ABG HCO3 ABG Total CO2 ABG O2 Saturation ABG Base Excess FiO2 Sodium 130 L 131 L Potassium 4.3 4.2 Chloride 95 L 102 Carbon Dioxide 24 24 BUN 33 H 32 H Creatinine 1.89 H 1.68 H Estimated GFR 34 L 40 L BUN/Creatinine Ratio 17.5 19.0 Glucose 184 H 161 H Lactate 1.5 Calcium 9.9 8.8 Magnesium 2.2 Total Bilirubin 1.4 H 1.3 AST 29 31 ALT 17 14 Alkaline Phosphatase 90 69 Troponin I 0.098 H NT-Pro-B Natriuret Pep 91516 H Total Protein 7.0 5.9 L Albumin 3.8 3.0 L Globulin 3.2 2.9 Albumin/Globulin Ratio 1.2 1.0 Procalcitonin 2.32 H 12/01/23 10:29 WBC RBC Hgb Hct MCV MCH MCHC RDW Plt Count Neut % (Auto) Lymph % (Auto) [place] % (Auto) Eos % (Auto) Baso % (Auto) Neut # (Auto) Lymph # (Auto) [place] # (Auto) Eos # (Auto) Baso # (Auto) PT INR ABG Sample Site Right radial ABG pH 7.33 L ABG pCO2 44.4 ABG pO2 77 L ABG HCO3 23 ABG Total CO2 24 ABG O2 Saturation 94 L ABG Base Excess -3.0 L FiO2 50 Sodium Potassium Chloride Carbon Dioxide BUN Creatinine Estimated GFR BUN/Creatinine Ratio Glucose Lactate Calcium Magnesium Total Bilirubin AST ALT Alkaline Phosphatase Troponin I NT-Pro-B Natriuret Pep Total Protein Albumin Globulin Albumin/Globulin Ratio Procalcitonin Assessment & Plan Assessment & Plan narrative: patient seen on caerma chart/labs/ reviewed 83 year old male admitted to ICU with acute respiratory failure CHF exacerbation AMS L3/L4 compression fx afib Suggest -neurochecks/seizure precautions -avoid opiods/benzos, sedatives -bipap, keep sat above 88% -check cxr/abg -start nebs/steroids -will give lasix 40mg -place mayo -start levo -keep map above 60 -rate control with amio can do iv -hold metoprolol -check echo -abx -cxs -monitor ins/outs -replace lytes prn -keep glucose 140-180s -gi/dvt ppx ac with eloquis -goals of care/severity of illness to be discussed with family daily, pt is dnr/dni -please call eICU if condition changes -discussed with Dr. Gaxiola, bedside nursing team total ccm time 30 mins
[2023-12-01] MEDS: NOREPINEPHRINE BITARTRATE/D5W 4 MG/250 ML PLAST..BAG 28.917 MG IV (11:45)
--- NOTE | 2023-12-01 11:48 | SLP.IPNOTE ---
Per hospitalist (Khalida), pt is now on BiPap and not appropriate for ST. Will continue to monitor pt status.
[2023-12-01] MEDS: VANCOMYCIN 1,250 MG/250 ML PIGGYBACK 250 MG IV (11:50)
[2023-12-01] MEDS: ALBUTEROL/IPRATROPIUM 3 ML AMPUL INH ×2 (12:28→14:57)
[2023-12-01] MEDS: FUROSEMIDE 40 MG/4 ML VIAL IV (12:49)
--- NOTE | 2023-12-01 14:11 | DI.RAD.S_ITS ---
PROCEDURE: XR CHEST FOR PICC 1V INDICATIONS: PICC verification COMPARISON: [facility], CARLA, XR CHEST 1V, 12/01/2023, 9:08. [facility], CR, XR CHEST 1V, 11/30/2023, 23:29. FINDINGS: There is rotation. A PICC was placed by the intravenous therapy team from the left side. Fluoroscopic spot film demonstrates the tip of PICC projecting to the area of SVC. There is a cardiac pacemaker. Bilateral pulmonary infiltrates and pleural effusions are present, compatible with pulmonary edema secondary to congestive heart failure or bilateral pneumonia. IMPRESSION: Tip of PICC projects to the area of SVC. Dictated by: May Alvarez M.D. on 12/01/2023 at 17:12 Approved by: May Alvarez M.D. on 12/01/2023 at 17:14
--- NOTE | 2023-12-01 14:13 | PC.NURSE ---
Day Shift Note Pt on bipap /, FiO2 50%, rate 10, SpO2 mid-90s. Pt mostly sleepy, very [place], able to follow some commands but often flails UEs and attempts to remove mask. Able to redirect and reorient, also able to assist some with turns. Rarely opening eyes. Lung sounds very coarse throughout. Unable to take in anything PO, including meds, due to somnolence. Blood cultures obtained by lab and IV abx started after. IV fluids stopped per Dr. Gaxiola and Dr. Ugalde. BP 80s/50s while IVF infusing, decreased to 70s/40s when stopped, levophed gtt started per MD order, currently at 0.05 mcg/kg/min to keep MAP 60 or greater. Lasix IV administered (see emar). Afib CVR in the 80s. Fentanyl patch removed from pt's left shoulder per Dr. Ugalde and disposed of. Stevenson catheter placed per order for accurate I&Os, 350 ml of clear dario urine immediately resulted. PICC line placed to LUE by DI nurse. Family at bedside and updated on pt plan of care.
[2023-12-01] MEDS: PIPERACILLIN/TAZO 3.375 GM in SODIUM CHLORIDE 0.9% 100 ML IV ×2 (15:12→21:58)
--- NOTE | 2023-12-01 15:21 | PT-IP ANOTE ---
checked with ICU nurse and stated that pt is not alert and is on bipap at this time. PT on hold for today.
--- NOTE | 2023-12-01 20:28 | PM.ICURNDS ---
- Date Patient Seen: 12/01/23 Time Patient Seen: 20:28 :: This patient was seen via real time interactive two-way audiovisual telecommunication. Note: no acute events this evening/afternoon sats improved adequate response to lasix, 1400 cc output sbp 110 on small levo dose would wean as tolerated
[2023-12-01] MEDS: SODIUM CHLORIDE 0.9% FLUSH 10 ML IV (21:21)
[2023-12-01] MEDS: LATANOPROST 0.005% OPHTH 2.5 ML 1 DROPS EYE-BOTH (21:22)
[2023-12-02] VITALS (66 sets, daily range): BP systolic 74–129; BP diastolic 50–79; PULSE 81–119; RESP 10–31; TEMP 36.3–36.4; O2SAT 90–97
[2023-12-02] MEDS: SODIUM CHLORIDE 0.9% FLUSH 10 ML IV ×2 (04:46→21:43)
[2023-12-02 05:10] LABS: Add Manual Diff / Slide Review NO; Basophils Absolute Auto 0 /uL (0-100); Basophils Percent Auto 0.1 % (0-2); Eosinophils Absolute Auto 0 /uL (0-450); Hematocrit 34.4 % (41-53); Hemoglobin 11.7 g/dL (13.5-17.5); Lymphocytes Absolute Auto 600 /uL (1100-4500); Lymphocytes Percent Auto 4.7 % (25-40); Mean Corpuscular Hemoglobin 33.6 PG (26-34); Mean Corpuscular Volume 98.6 fL (80-100); Monocytes Absolute Auto 800 /uL (0-900); Monocytes Percent Auto 6.8 % (3-14); Neutrophils Absolute Auto 10300 /uL (1500-7000); Neutrophils Percent Auto 88.4 % (50-75); Platelet Count 155 X10^3/uL (150-400); Red Blood Cell Count 3.49 X10^6/uL (4.5-5.9); Red Cell Distribution Width 15.4 % (11.6-14.8); White Blood Cell Count 11.7 X10^3/uL (4.5-11.0)
[2023-12-02 05:18] LABS: INR 1.8 (0.9-1.3); Prothrombin Time 20.3 SECONDS (9.4-12.5)
[2023-12-02 05:20] LABS: BUN Creatinine Ratio 20.7 (6-22); Blood Urea Nitrogen 29 mg/dL (9-20); Calcium 9.1 mg/dL (8.4-10.2); Carbon Dioxide 28 mmol/L (22-32); Chloride 102 mmol/L (98-107); Estimated Glomerular Filt Rate 49 mL/min (>60); Glucose 168 mg/dL (80-110); HEMOLYSIS < 15 (0-50); Potassium 3.4 mmol/L (3.4-5.1); Sodium 134 mmol/L (137-145)
[2023-12-02] MEDS: PIPERACILLIN/TAZO 3.375 GM in SODIUM CHLORIDE 0.9% 100 ML IV ×3 (06:01→21:43)
--- NOTE | 2023-12-02 06:16 | PC.NURSE ---
Block Captain Note-Patient has been sleeping most of the night. Does open eyes and follow simple directions. Very [place], hearing aids out, charging overnight. Interacting with family, asking them appropriate questions. Remains on Bipap 40% FIO2, 18/8, RR 16-24, SpO2 >94%. Levophed gtt titrated from 0.05mcg/kg/min to 0.02mcg-see vital trends. Total UOP 1450ml. Tolerates repositioning Q2h with much display of pain. SCDs on.
--- NOTE | 2023-12-02 08:41 | PT-IP ANOTE ---
Talked with nurse and pt continues to be not appropriate for PT this morning. nurse stated that they will try to have him off bipap and check back on pt this afternoon.
--- NOTE | 2023-12-02 08:54 | OT.IPNOTE ---
Pt still on Bipap, hold from OT. To check on the pt later or tomorrow when more appropriate to be seen.
[2023-12-02] MEDS: ENOXAPARIN 40 MG/0.4 ML SYRINGE SUBCUT (08:57)
[2023-12-02] MEDS: polyethylene glycoL 3350 17 GM POWD.PACK PO (08:58)
--- NOTE | 2023-12-02 09:12 | P.TELICUPN_ITS ---
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 care: Yes Patient Location: ICU Provider location (State): [place] Other participants/roles: RN Interval history: off bipap this am Diuresing vanc /zosyn for PNA off levo this am Cr improving HR controlled in 80's-90's 11/30 TTE done showing ef 20-25%, severe biatrial enlargement, LVH MR, MR, suspect elevated pulmonary pressures Current Medications Current Medications Medications: Home Medications amiodarone 200 mg tablet (Pacerone) 100 mg PO DAILY 05/21/21 [History Confirmed 11/28/23] finasteride 5 mg tablet (Proscar) 5 mg PO DAILY 05/21/21 [History Confirmed 11/28/23] latanoprost 0.005 % eye drops (Xalatan) 1 drp EYE-BOTH DAILY 05/21/21 [History Confirmed 11/28/23] spironolactone 25 mg tablet (Aldactone) 25 mg PO DAILY 05/21/21 [History Confirmed 11/28/23] tamsulosin 0.4 mg capsule (Flomax) 0.4 mg PO DAILY 05/21/21 [History Confirmed 11/28/23] metoprolol succinate 25 mg tablet,extended release 24 hr 25 mg PO BID 11/28/23 [History Confirmed 11/28/23] torsemide 20 mg tablet 20 mg PO DAILY 11/28/23 [History Confirmed 11/28/23] atorvastatin 40 mg tablet 40 mg PO DAILY 11/30/23 [History Confirmed 11/30/23] potassium chloride 20 mEq tablet,extended release 20 meq PO BID 11/30/23 [History Confirmed 11/30/23] Visit Medications (administered) Generic Name Dose Route Start Last Admin Trade Name Freq PRN Reason Stop Dose Admin Albuterol/Ipratropium 3 ml 12/01/23 11:00 12/02/23 07:26 Albuterol/Ipratropium 3 Ml Ampul INH Not Given [id number] [facility] Amiodarone HCl 200 mg 12/01/23 17:00 12/01/23 18:28 Amiodarone 200 Mg Tablet PO Not Given BIDWM JOAN Benzonatate 100 mg 11/29/23 16:26 11/30/23 18:13 Benzonatate 100 Mg Capsule PO 100 mg TID PRN Administration Cough Cyclobenzaprine HCl 5 mg 11/28/23 06:00 12/02/23 06:01 Cyclobenzaprine 10 Mg Tablet PO Not Given Q8HR JOAN Enoxaparin Sodium 40 mg 11/28/23 10:30 12/02/23 08:57 Enoxaparin 40 Mg/0.4 Ml Syringe SUBCUT 40 mg DAILY JOAN Administration Fentanyl 25 mcg 11/30/23 10:15 11/30/23 11:09 Fentanyl 25 Mcg/Patch TOP 25 mcg Q72H JOAN Administration Finasteride 5 mg 11/28/23 09:00 12/01/23 12:08 Finasteride 5 Mg Tablet PO Not Given DAILY JOAN Heparin Sodium (Porcine) 50 unit 12/01/23 19:41 12/02/23 04:46 Heparin Flush (Cl/Picc/Mid-Line) 50 Unit/5 Ml Syringe IV 50 unit PRN PRN Administration Flush Piperacillin Sod/Tazobactam 100 mls @ 25 mls/hr 12/01/23 14:00 12/02/23 06:01 Sod 3.375 gm/ Sodium Chloride IV 25 mls/hr Q8H JOAN Administration Vancomycin HCl 1,250 mg in 250 mls @ 250 mls/hr 12/01/23 11:00 12/01/23 14:10 Vancomycin IV Infused Q24H JOAN Infusion NOREPINEPHRINE BITARTRATE/D5W 4 mg in 250 mls @ 28.917 mls/hr 12/01/23 10:58 12/02/23 07:43 Levophed IV 0 mcg/kg/min TITRATE JOAN 0 mls/hr Titration Protocol 0.1 MCG/KG/MIN Latanoprost 1 drops 11/28/23 21:00 12/01/23 21:22 Latanoprost 0.005% Ophth 2.5 Ml EYE-BOTH 1 drops BEDTIME JOAN Administration Metoprolol Succinate 25 mg 11/28/23 09:00 11/30/23 21:01 Metoprolol Er 25 Mg Tablet PO Not Given BID JOAN Polyethylene Glycol 17 gm 11/29/23 11:30 12/02/23 08:58 Polyethylene Glycol 3350 17 Gm Powd.Pack PO 17 gm DAILY JOAN Administration Sennosides 17.2 mg 11/28/23 21:00 12/01/23 21:22 Sennosides 8.6 Mg Tablet PO Not Given BEDTIME JOAN Sodium Chloride 10 ml 12/01/23 21:00 12/02/23 04:46 Sodium Chloride 0.9% Flush IV 10 ml BID JOAN Administration Spironolactone 25 mg 11/28/23 09:00 11/30/23 09:34 Spironolactone 25 Mg Tablet PO 25 mg DAILY JOAN Administration Tamsulosin HCl 0.4 mg 11/28/23 09:00 12/01/23 12:11 Tamsulosin 0.4 Mg Capsule PO Not Given DAILY JOAN Torsemide 20 mg 11/28/23 09:00 12/01/23 12:11 Torsemide 10 Mg Tablet PO Not Given DAILY JOAN Objective Imaging Chest x-ray: Radiologist's impression: 11/30 CXR showing bilateral infiltrates, edema vs. PNA Labs 12/02/23 04:55 12/02/23 04:55 Labs: Laboratory Results - last 24 hr 12/01/23 12/01/23 12/02/23 08:57 10:29 04:55 WBC 12.2 H 11.7 H RBC 3.39 L 3.49 L Hgb 11.3 L 11.7 L Hct 34.0 L 34.4 L MCV 100.3 H 98.6 MCH 33.4 33.6 MCHC 33.3 34.0 RDW 14.9 H 15.4 H Plt Count 139 L 155 Neut % (Auto) 86.8 H 88.4 H Lymph % (Auto) 5.3 L 4.7 L Rapides % (Auto) 7.8 6.8 Eos % (Auto) 0.0 L 0.0 L Baso % (Auto) 0.1 0.1 Neut # (Auto) 44469 H 08927 H Lymph # (Auto) 600 L 600 L [place]ides # (Auto) 900 800 Eos # (Auto) 0 0 Baso # (Auto) 0 0 PT 20.3 H INR 1.8 H ABG Sample Site Right radial ABG pH 7.33 L ABG pCO2 44.4 ABG pO2 77 L ABG HCO3 23 ABG Total CO2 24 ABG O2 Saturation 94 L ABG Base Excess -3.0 L FiO2 50 Sodium 131 L 134 L Potassium 4.2 3.4 Chloride 102 102 Carbon Dioxide 24 28 BUN 32 H 29 H Creatinine 1.68 H 1.40 H Estimated GFR 40 L 49 L BUN/Creatinine Ratio 19.0 20.7 Glucose 161 H 168 H Lactate 1.5 Calcium 8.8 9.1 Total Bilirubin 1.3 AST 31 ALT 14 Alkaline Phosphatase 69 Total Protein 5.9 L Albumin 3.0 L Globulin 2.9 Albumin/Globulin Ratio 1.0 Procalcitonin 2.32 H Exam Vital Signs (past 8 hours): - 12/02/23 01:15 12/02/23 01:15 12/02/23 01:30 Temperature Pulse Rate 88 88 Respiratory Rate 19 17 Blood Pressure 89/58 L Pulse Oximetry 95 97 Oxygen Delivery Method Fraction of Inspired Oxygen 12/02/23 01:30 12/02/23 01:45 12/02/23 01:45 Temperature Pulse Rate 94 H Respiratory Rate 19 Blood Pressure 98/60 95/60 Pulse Oximetry 96 Oxygen Delivery Method Fraction of Inspired Oxygen 12/02/23 02:00 12/02/23 02:00 12/02/23 02:15 Temperature Pulse Rate 91 H 95 H Respiratory Rate 19 17 Blood Pressure 99/67 Pulse Oximetry 95 95 Oxygen Delivery Method Fraction of Inspired Oxygen 12/02/23 02:15 12/02/23 02:30 12/02/23 02:30 Temperature Pulse Rate 91 H Respiratory Rate 19 Blood Pressure 90/56 L 94/62 Pulse Oximetry 94 Oxygen Delivery Method Fraction of Inspired Oxygen 12/02/23 02:45 12/02/23 02:45 12/02/23 03:00 Temperature Pulse Rate 91 H 90 Respiratory Rate 26 H 18 Blood Pressure 94/65 Pulse Oximetry 94 94 Oxygen Delivery Method Fraction of Inspired Oxygen 12/02/23 03:00 12/02/23 03:15 12/02/23 03:15 Temperature Pulse Rate 88 Respiratory Rate 30 H Blood Pressure 95/57 L 89/56 L Pulse Oximetry 94 Oxygen Delivery Method Fraction of Inspired Oxygen 12/02/23 03:30 12/02/23 03:30 12/02/23 03:41 Temperature Pulse Rate 89 Respiratory Rate 17 Blood Pressure 99/62 Pulse Oximetry 95 Oxygen Delivery Method Fraction of Inspired Oxygen 40 12/02/23 03:45 12/02/23 03:45 12/02/23 04:00 Temperature Pulse Rate 89 98 H Respiratory Rate 19 21 Blood Pressure 88/59 L Pulse Oximetry 94 95 Oxygen Delivery Method Fraction of Inspired Oxygen 12/02/23 04:01 12/02/23 04:01 12/02/23 04:15 Temperature Pulse Rate 94 H Respiratory Rate 16 Blood Pressure 101/60 Pulse Oximetry 94 Oxygen Delivery Method BiPAP Fraction of Inspired Oxygen 12/02/23 04:15 12/02/23 04:15 12/02/23 04:15 Temperature 97.5 F L Pulse Rate 95 H 88 Respiratory Rate 22 29 H Blood Pressure 97/56 L 97/56 L Pulse Oximetry 95 94 Oxygen Delivery Method Fraction of Inspired Oxygen 40 12/02/23 04:30 12/02/23 04:30 12/02/23 04:46 Temperature Pulse Rate 95 H 94 H Respiratory Rate 18 20 Blood Pressure 94/58 L Pulse Oximetry 94 93 Oxygen Delivery Method Fraction of Inspired Oxygen 12/02/23 04:46 12/02/23 05:00 12/02/23 05:00 Temperature Pulse Rate 96 H Respiratory Rate 15 Blood Pressure 94/67 91/64 Pulse Oximetry 93 Oxygen Delivery Method Fraction of Inspired Oxygen 12/02/23 05:15 12/02/23 05:15 12/02/23 05:30 Temperature Pulse Rate 94 H Respiratory Rate 20 Blood Pressure 90/59 L 95/79 Pulse Oximetry 94 Oxygen Delivery Method Fraction of Inspired Oxygen 12/02/23 05:30 12/02/23 05:45 12/02/23 05:45 Temperature Pulse Rate 85 93 H Respiratory Rate 18 23 Blood Pressure 106/74 Pulse Oximetry 94 94 Oxygen Delivery Method Fraction of Inspired Oxygen 12/02/23 06:00 12/02/23 06:00 12/02/23 06:15 Temperature Pulse Rate 90 Respiratory Rate 22 Blood Pressure 98/55 L 93/59 L Pulse Oximetry 94 Oxygen Delivery Method Fraction of Inspired Oxygen 12/02/23 06:15 12/02/23 06:30 12/02/23 06:30 Temperature Pulse Rate 91 H 94 H Respiratory Rate 21 18 Blood Pressure 91/64 Pulse Oximetry 95 95 Oxygen Delivery Method Fraction of Inspired Oxygen 12/02/23 06:45 12/02/23 06:45 12/02/23 07:00 Temperature Pulse Rate 91 H Respiratory Rate 22 Blood Pressure 103/72 93/63 Pulse Oximetry 95 Oxygen Delivery Method Fraction of Inspired Oxygen 12/02/23 07:00 12/02/23 07:15 12/02/23 07:15 Temperature Pulse Rate 98 H 99 H Respiratory Rate 19 21 Blood Pressure 103/59 L Pulse Oximetry 96 96 Oxygen Delivery Method Fraction of Inspired Oxygen 12/02/23 07:23 12/02/23 07:30 12/02/23 07:30 Temperature Pulse Rate 96 H Respiratory Rate 22 Blood Pressure 93/63 100/67 Pulse Oximetry 95 Oxygen Delivery Method Fraction of Inspired Oxygen 40 12/02/23 07:49 12/02/23 07:49 12/02/23 08:00 Temperature Pulse Rate 100 H 110 H Respiratory Rate 25 H 18 Blood Pressure 88/56 L Pulse Oximetry 94 94 Oxygen Delivery Method Fraction of Inspired Oxygen 12/02/23 08:00 12/02/23 08:00 12/02/23 08:16 Temperature Pulse Rate 98 H Respiratory Rate 19 Blood Pressure 106/62 Pulse Oximetry 94 Oxygen Delivery Method BiPAP Fraction of Inspired Oxygen 12/02/23 08:16 12/02/23 08:30 12/02/23 08:30 Temperature Pulse Rate 103 H Respiratory Rate 21 Blood Pressure 129/60 91/61 Pulse Oximetry 94 Oxygen Delivery Method Fraction of Inspired Oxygen 12/02/23 08:45 12/02/23 08:45 12/02/23 09:00 Temperature Pulse Rate 108 H 106 H Respiratory Rate 25 H 25 H Blood Pressure 99/54 L Pulse Oximetry 94 90 L Oxygen Delivery Method Fraction of Inspired Oxygen 12/02/23 09:00 Temperature Pulse Rate Respiratory Rate Blood Pressure 96/56 L Pulse Oximetry Oxygen Delivery Method Fraction of Inspired Oxygen Fraction of Inspired Oxygen 40 SaO2/FiO2 Ratio 192 Oxygen Delivery Method BiPAP Oxygen Flow Rate 0 Narrative Exam Narrative: ill appearing, wearing nasal cannula, no acute distress Quality TeleICU VTE Deep Vein Thrombosis/Pulmonary Embolism Present on Admission: No Stress Ulcer Stress ulcer prophylaxis: yes Assessment & Plan Assessment and plan (1) Atrial fibrillation: Status: Acute (2) PNA (pneumonia): Qualifiers: Pneumonia type: due to unspecified organism Laterality: bilateral Status: Acute (3) Pulmonary edema: Qualifiers: Chronicity: acute Qualified Code(s): J81.0 - Acute pulmonary edema Status: Acute (4) Acute hypoxemic respiratory failure: Status: Acute (5) Compression fracture of L3 vertebra: Status: Acute (6) CHF (congestive heart failure): Qualifiers: Heart failure type: systolic Status: Inactive Assessment & Plan narrative: patient seen on camera chart/labs/ reviewed 83 year old male admitted to ICU with acute respiratory failure, possible PNA CHF exacerbation- volume overload, EF 20-25% AMS L3/L4 compression fx afib Suggest -neurochecks/seizure precautions -minimize opiods/benzos, sedatives -he is off bipap, keep sat above 88%, wean as tolerated can trial hi flow NC for comfort if needs escalation in o2 requirement, has skin breakdown from bipap -continue nebs/steroids -levophed gtt is off this am -keep map above 60 -rate control with amio - iv if needed as patient unable to swallow pills. getting swallow study by speech -hold metoprolol until bp improves - continue diuresis, goal net neg 500-1 L daily may need PRN dosing of lasix if not getting negative on current diuretic regimen - trend Cr, it is down trending -abx for HAP, vanc/zosyn, MRSA screen, procalcitonin- if MRSA screen neg and no culture with MRSA stop vanco. -follow up cultures -replace lytes prn goal K >4 Mg >2 -keep glucose 140-180s -dvt ppx - lovenox -gi ppx, famotidine -goals of care/severity of illness to be discussed with family daily, pt is dnr/dni -recommend ST, PT consults -please call eICU if condition changes -discussed with MDR team total ccm time 40 mins Time Spent With Patient Time with patient: 30 to 49 minutes with 50% spent counseling/coordinating care
--- NOTE | 2023-12-02 09:13 | PC.NURSE ---
Addendum entered by Dalton Arredondo R.N. 12/02/23 09:29: No complaints of pain or discomfort around nose. Original Note: 0900 - Bipap removed, placed on 3L NC, 92%. Two pressure wounds developed on either side of nose where bipap mask was secured. Covered with light dressings, provider notified.
[2023-12-02 10:04] LABS: Procalcitonin 2.23 ng/mL (<0.5)
[2023-12-02] MEDS: ALBUTEROL/IPRATROPIUM 3 ML AMPUL INH ×4 (10:08→22:37)
[2023-12-02] MEDS: FAMOTIDINE 20 MG/2 ML VIAL IV (10:12)
[2023-12-02] MEDS: POTASSIUM CHLORIDE IN WATER 10 MEQ/100 ML PIGGYBACK 100 MEQ IV ×4 (10:12→15:16)
[2023-12-02 11:06] LABS: MRSA (Nasal) PCR NOT DETECTED (Not Detect)
--- NOTE | 2023-12-02 14:14 | OT.IPNOTE ---
Spoke to hospitalist regarding discharging OT services for pt. Pt's family considering Hospice and per nursing pt needing assist for all ADL needs at this time.
--- NOTE | 2023-12-02 14:31 | ST.IPDYTX ---
Visit Care Team Role Provider Type Lindsay Chavarria MD Primary Care Provider Physician Specialty: Internal Medicine Address: [place], [address] Email: Bella James MD Other Providers Physician Specialty: Medical Address: Phone: Fax: Email: Pita Momin MD Other Providers Physician Specialty: Medical Address: Phone: Fax: Email: Tyrell Ugalde MD Other Providers Physician Specialty: Medical Address: [address] [place], [address] Phone: Fax: Email: Holden Taylor MD Other Providers Physician Specialty: Internal Medicine Address: Phone: Fax: Email: Pola Dixon MD Other Providers Physician Specialty: Medical Address: Phone: Fax: Email: Ritika Diaz MD Other Providers Physician Specialty: Anesthesiology Internal Medicine Address: [address] [place], [address] Fax: Email: [email or web address] [email or web address] Other Providers Physician Specialty: Internal Medicine Address: [address] [place], [address] Phone: Fax: Email: @[employer] Dalton Carney MD Other Providers Physician Specialty: Internal Medicine Address: Phone: Fax: Email: Rodríguez Davies MD Other Providers Physician Specialty: Medical Address: Phone: Fax: Email: Rome Leyva MD Other Providers Physician Specialty: Internal Medicine Address: [address] [place], [address] Phone: Fax: Email: Aguilar Salcido MD Other Providers Physician Specialty: Medical Address: [address], [address] Phone: Fax: Email: Eunice Brown MD Other Providers Physician Specialty: Medical Address: Phone: Fax: Email: Adela Aguilar Other Providers Physician Specialty: Medical Address: Phone: Fax: Email: Hilaria Goff MD Other Providers Physician Specialty: Internal Medicine Address: Phone: Fax: Email: Rashmi Yip MD Emergency Provider Physician Referring Provider Specialty: Emergency Medicine Address: [address] [place], [address] Email: [email or web address] [email or web address] Argueta MD Admit Provider Physician Attending Provider Specialty: Internal Medicine Address: [address] [place] [address], [address] Fax: Email: [email or web address] [email or web address] USER EXPERIENCE STRATEGIST Dysphagia Treatment ONLINE USER EXPERIENCE STRATEGIST Dysphagia Treatment Start: 11/30/23 14:40 Freq: Status: Active Protocol: Document 12/02/23 14:22 MA (Rec: 12/02/23 14:30 MA [id number]) Dysphagia Treatment Session Time Visit Start Time 13:45 Visit Stop Time 14:20 Total Visit Minutes 35 Visit Information Visit Number 2 Setting Assessment Location Acute Care Visit Type Note Type Treatment Note Next Note Type Next Note Type Re-Evaluation Patient Information Identification Type Name,Date of Subjective Observations Pt sitting upright in bed. Pt and family present. Treatment Liquids Trialed Mildly Thick (IDDSI 2) Solids Trialed Purred (IDDSI 4) Administration Type Tea Spoon Oral Strategies Upright at 90 degrees Pharyngeal Strategies Chin Tuck Treatment Activities Therapeutic PO trials, education with Pt and family regarding diet recommendations and safe swallowing strategies The IDDSI Framework Protocol: IDDSI.1 Assessment Patient Response to Treatment Excellent Rehab Potential Good Assessment of Improvement Nursing aid reports she provided Pt oral care. Pt awake, alert and compliant with PO trials. ST presented Pt with about 2 oz of nectar thick water via tsp and about 1 oz of pudding via tsp. Pt required mod cues to utilize chin tuck and reports it is difficult for him to tuck chin forward given hx of spinal stenosis. However, he frequently attempted to swallow while putting his head back, requiring cues to keep head in neutral position/chin tucked as much as possible. For nectar thick water via tsp , Pt exhibited mild bolus holding, good oral acceptance and containment, extended ap transport, suspected loss of bolus resulting in premature spillage, audible swallow. Pt demonstrated no overt s/s of aspiration initially, however increaased coughing reflex as trials progressed. For pudding Pt demonstrated increasing occurrences of coughing with wet vocal quality. Pt required cues throughout session to utilize chin tuck. ST communicated with Dr. Gaxiola regarding Pt progress with trials and recommendation for Pt to become NPO. Pt reports their family is leaning towards having Pt go on hospice. ST educated Pt and Pt family on recommendation for no safe diet, d/t aspiration risk and provided education on what aspiration is, what s/s look like and consequences of aspiration PNA . Pt and Pt family verbalized understanding. ST also educated Pt and family on if Pt is put on hospice and he can eat/drink whatever he wants to consider utilizing chin tuck as well as ensuring his mouth is clean before/ after meals. Pt family verbalized understanding. ST recommends no safe PO diet at this time. Recommendations Diet Order NPO Medication Recommendations Not Recommended by Mouth Additional Dietary Needs Reminders to Use Strategies Aspiration Precautions Recommended Precautions Upright at 90 Degrees,Small Bites/Sips,Chin Tuck,Double Swallow,Liquids from Cup Treatment Plan Appropriate for Continued Therapy Yes Therapy Recommendations 1-2 x/day while inpatient Dysphagia Goals Pt and family will be educated in as well as understand a) the MBS results and b) safe diet/aspiration precaution recommendations. Pt will safely tolerate the least restrictive diet meeting hydration and nutritional needs without overt s/sx aspiration
--- NOTE | 2023-12-02 14:31 | ST.IPDYTX ---
Visit Care Team Role Provider Type Lindsay Chavarria MD Primary Care Provider Physician Specialty: Internal Medicine Address: [place], [address] Email: Bella James MD Other Providers Physician Specialty: Medical Address: Phone: Fax: Email: Pita Momin MD Other Providers Physician Specialty: Medical Address: Phone: Fax: Email: Tyrell Ugalde MD Other Providers Physician Specialty: Medical Address: [address] [place], [address] Phone: Fax: Email: Holden Taylor MD Other Providers Physician Specialty: Internal Medicine Address: Phone: Fax: Email: Pola Dixon MD Other Providers Physician Specialty: Medical Address: Phone: Fax: Email: Ritika Diaz MD Other Providers Physician Specialty: Anesthesiology Internal Medicine Address: [address] [place], [address] Fax: Email: [email or web address] Parvez Diez MD Other Providers Physician Specialty: Internal Medicine Address: [address] [place], [address] Phone: Fax: Email: @[email or web address] Dalton Carney MD Other Providers Physician Specialty: Internal Medicine Address: Phone: Fax: Email: Rodríguez Davies MD Other Providers Physician Specialty: Medical Address: Phone: Fax: Email: Rome Leyva MD Other Providers Physician Specialty: Internal Medicine Address: [address] [place], [address] Phone: Fax: Email: Aguilar Salcido MD Other Providers Physician Specialty: Medical Address: [address], [address] Phone: Fax: Email: Eunice Brown MD Other Providers Physician Specialty: Medical Address: Phone: Fax: Email: Adela Aguilar Other Providers Physician Specialty: Medical Address: Phone: Fax: Email: Hilaria Goff MD Other Providers Physician Specialty: Internal Medicine Address: Phone: Fax: Email: Rashmi Yip MD Emergency Provider Physician Referring Provider Specialty: Emergency Medicine Address: [address] [place], [address] Email: [email or web address] Admit Provider Physician Attending Provider Specialty: Internal Medicine Address: [address] [place] [address], [address] Fax: Email: [email or web address] RESEARCHER Dysphagia Treatment GOVERNMENT AFFAIRS RESEARCHER Dysphagia Treatment Start: 11/30/23 14:40 Freq: Status: Active Protocol: Document 12/02/23 14:22 MA (Rec: 12/02/23 14:30 MA [id number]) Dysphagia Treatment Session Time Visit Start Time 13:45 Visit Stop Time 14:20 Total Visit Minutes 35 Visit Information Visit Number 2 Setting Assessment Location Acute Care Visit Type Note Type Treatment Note Next Note Type Next Note Type Re-Evaluation Patient Information Identification Type Name,Date of Subjective Observations Pt sitting upright in bed. Pt and family present. Treatment Liquids Trialed Mildly Thick (IDDSI 2) Solids Trialed Purred (IDDSI 4) Administration Type Tea Spoon Oral Strategies Upright at 90 degrees Pharyngeal Strategies Chin Tuck Treatment Activities Therapeutic PO trials, education with Pt and family regarding diet recommendations and safe swallowing strategies The IDDSI Framework Protocol: IDDSI.1 Assessment Patient Response to Treatment Excellent Rehab Potential Good Assessment of Improvement Nursing aid reports she provided Pt oral care. Pt awake, alert and compliant with PO trials. ST presented Pt with about 2 oz of nectar thick water via tsp and about 1 oz of pudding via tsp. Pt required mod cues to utilize chin tuck and reports it is difficult for him to tuck chin forward given hx of spinal stenosis. However, he frequently attempted to swallow while putting his head back, requiring cues to keep head in neutral position/chin tucked as much as possible. For nectar thick water via tsp , Pt exhibited mild bolus holding, good oral acceptance and containment, extended ap transport, suspected loss of bolus resulting in premature spillage, audible swallow. Pt demonstrated no overt s/s of aspiration initially, however increaased coughing reflex as trials progressed. For pudding Pt demonstrated increasing occurrences of coughing with wet vocal quality. Pt required cues throughout session to utilize chin tuck. ST communicated with Dr. Gaxiola regarding Pt progress with trials and recommendation for Pt to become NPO. Pt reports their family is leaning towards having Pt go on hospice. ST educated Pt and Pt family on recommendation for no safe diet, d/t aspiration risk and provided education on what aspiration is, what s/s look like and consequences of aspiration PNA . Pt and Pt family verbalized understanding. ST also educated Pt and family on if Pt is put on hospice and he can eat/drink whatever he wants to consider utilizing chin tuck as well as ensuring his mouth is clean before/ after meals. Pt family verbalized understanding. ST recommends no safe PO diet at this time. Recommendations Diet Order NPO Medication Recommendations Not Recommended by Mouth Additional Dietary Needs Reminders to Use Strategies Aspiration Precautions Recommended Precautions Upright at 90 Degrees,Small Bites/Sips,Chin Tuck,Double Swallow,Liquids from Cup Treatment Plan Appropriate for Continued Therapy Yes Therapy Recommendations 1-2 x/day while inpatient Dysphagia Goals Pt and family will be educated in as well as understand a) the MBS results and b) safe diet/aspiration precaution recommendations. Pt will safely tolerate the least restrictive diet meeting hydration and nutritional needs without overt s/sx aspiration
--- NOTE | 2023-12-02 14:31 | SLP.IPNOTE ---
ELECTRONIC DESIGN ENGINEER recommending no safe PO diet at this time.
--- NOTE | 2023-12-02 15:16 | PM.PN.1 ---
Subjective Subjective Interval history: Patient now weaned off pressors and bipap. Had long 30min GOC discussion with family about his poor prognosis given his comorbidities, aspiration risk and pain needs. They admitted that he has been slowly declining the past few months with lots of falls. Hospice was explained and they would like to pursue that for him so he can be comfortable and at home. Exam Vital Signs (past 8 hours): - 12/02/23 07:23 12/02/23 07:30 12/02/23 07:30 Pulse Rate 96 H Respiratory Rate 22 Blood Pressure 93/63 100/67 Pulse Oximetry 95 Oxygen Delivery Method Oxygen Flow Rate Fraction of Inspired Oxygen 40 12/02/23 07:49 12/02/23 07:49 12/02/23 08:00 Pulse Rate 100 H 110 H Respiratory Rate 25 H 18 Blood Pressure 88/56 L Pulse Oximetry 94 94 Oxygen Delivery Method Oxygen Flow Rate Fraction of Inspired Oxygen 12/02/23 08:00 12/02/23 08:00 12/02/23 08:16 Pulse Rate 98 H Respiratory Rate 19 Blood Pressure 106/62 Pulse Oximetry 94 Oxygen Delivery Method BiPAP Oxygen Flow Rate Fraction of Inspired Oxygen 12/02/23 08:16 12/02/23 08:30 12/02/23 08:30 Pulse Rate 103 H Respiratory Rate 21 Blood Pressure 129/60 91/61 Pulse Oximetry 94 Oxygen Delivery Method Oxygen Flow Rate Fraction of Inspired Oxygen 12/02/23 08:45 12/02/23 08:45 12/02/23 09:00 Pulse Rate 108 H 106 H Respiratory Rate 25 H 25 H Blood Pressure 99/54 L Pulse Oximetry 94 90 L Oxygen Delivery Method Oxygen Flow Rate Fraction of Inspired Oxygen 12/02/23 09:00 12/02/23 09:15 12/02/23 09:15 Pulse Rate 99 H Respiratory Rate 20 Blood Pressure 96/56 L 87/53 L Pulse Oximetry 93 Oxygen Delivery Method Oxygen Flow Rate Fraction of Inspired Oxygen 12/02/23 09:30 12/02/23 09:40 12/02/23 09:40 Pulse Rate 100 H 100 H Respiratory Rate 20 21 Blood Pressure 84/51 L Pulse Oximetry 92 91 Oxygen Delivery Method Oxygen Flow Rate Fraction of Inspired Oxygen 12/02/23 09:41 12/02/23 09:41 12/02/23 09:45 Pulse Rate 105 H 109 H Respiratory Rate 21 22 Blood Pressure 92/54 L Pulse Oximetry 92 94 Oxygen Delivery Method Oxygen Flow Rate Fraction of Inspired Oxygen 12/02/23 09:45 12/02/23 10:00 12/02/23 10:00 Pulse Rate 106 H Respiratory Rate 28 H Blood Pressure 84/56 L 80/60 L Pulse Oximetry 93 Oxygen Delivery Method Oxygen Flow Rate Fraction of Inspired Oxygen 12/02/23 10:08 12/02/23 10:15 12/02/23 10:15 Pulse Rate 108 H 97 H Respiratory Rate 15 17 Blood Pressure 104/73 Pulse Oximetry 94 95 Oxygen Delivery Method Nasal Cannula Oxygen Flow Rate 3 Fraction of Inspired Oxygen 12/02/23 10:30 12/02/23 10:30 12/02/23 10:45 Pulse Rate 106 H 103 H Respiratory Rate 23 20 Blood Pressure 95/58 L Pulse Oximetry 93 94 Oxygen Delivery Method Oxygen Flow Rate Fraction of Inspired Oxygen 12/02/23 10:45 12/02/23 11:00 12/02/23 11:00 Pulse Rate 98 H Respiratory Rate 19 Blood Pressure 86/62 L 74/52 L Pulse Oximetry 94 Oxygen Delivery Method Oxygen Flow Rate Fraction of Inspired Oxygen 12/02/23 11:15 12/02/23 11:15 12/02/23 11:30 Pulse Rate 105 H 104 H Respiratory Rate 21 26 H Blood Pressure 90/57 L Pulse Oximetry 93 93 Oxygen Delivery Method Oxygen Flow Rate Fraction of Inspired Oxygen 12/02/23 11:30 12/02/23 11:45 12/02/23 11:45 Pulse Rate 119 H Respiratory Rate 29 H Blood Pressure 87/54 L 76/57 L Pulse Oximetry 90 L Oxygen Delivery Method Oxygen Flow Rate Fraction of Inspired Oxygen 12/02/23 12:00 12/02/23 12:00 12/02/23 12:00 Pulse Rate 99 H Respiratory Rate 22 Blood Pressure 80/52 L Pulse Oximetry 91 Oxygen Delivery Method Nasal Cannula Oxygen Flow Rate Fraction of Inspired Oxygen 12/02/23 12:15 12/02/23 12:15 12/02/23 12:30 Pulse Rate 106 H 92 H Respiratory Rate 31 H 23 Blood Pressure 81/50 L Pulse Oximetry 91 94 Oxygen Delivery Method Oxygen Flow Rate Fraction of Inspired Oxygen 12/02/23 12:30 12/02/23 12:45 12/02/23 12:45 Pulse Rate 95 H Respiratory Rate 21 Blood Pressure 83/51 L 81/56 L Pulse Oximetry 94 Oxygen Delivery Method Oxygen Flow Rate Fraction of Inspired Oxygen 12/02/23 13:00 12/02/23 13:00 12/02/23 13:15 Pulse Rate 100 H Respiratory Rate 25 H Blood Pressure 79/58 L 89/61 L Pulse Oximetry 94 Oxygen Delivery Method Oxygen Flow Rate Fraction of Inspired Oxygen 12/02/23 13:15 Pulse Rate 101 H Respiratory Rate 24 Blood Pressure Pulse Oximetry 93 Oxygen Delivery Method Oxygen Flow Rate Fraction of Inspired Oxygen Fraction of Inspired Oxygen 40 SaO2/FiO2 Ratio 192 Oxygen Delivery Method Nasal Cannula Oxygen Flow Rate 3 Narrative Exam Narrative: Ill-appearing, on 3L NC and awakens to voice. Not in pain. Lungs have diffuse wheezes. Heart is regular, no murmur gallop or rub. Abdomen is soft, non distended. Extremities are free of edema. Objective Labs 12/02/23 04:55 12/02/23 04:55 Labs: Laboratory Results - last 24 hr 12/02/23 12/02/23 04:55 09:45 WBC 11.7 H RBC 3.49 L Hgb 11.7 L Hct 34.4 L MCV 98.6 MCH 33.6 MCHC 34.0 RDW 15.4 H Plt Count 155 Neut % (Auto) 88.4 H Lymph % (Auto) 4.7 L Orange % (Auto) 6.8 Eos % (Auto) 0.0 L Baso % (Auto) 0.1 Neut # (Auto) 52905 H Lymph # (Auto) 600 L Orange # (Auto) 800 Eos # (Auto) 0 Baso # (Auto) 0 PT 20.3 H INR 1.8 H Sodium 134 L Potassium 3.4 Chloride 102 Carbon Dioxide 28 BUN 29 H Creatinine 1.40 H Estimated GFR 49 L BUN/Creatinine Ratio 20.7 Glucose 168 H Calcium 9.1 Procalcitonin 2.23 H Nasal Screen MRSA (PCR) Not detected [facility] Medical History Coronary artery disease Atrial fibrillation Anticoagulated Social History household members: spouse Smoking Status: Unknown if ever smoked Assessment & Plan Assessment & Plan narrative: # septic shock 2/2 acute aspiration pneumonia, improving # acute hypoxic resp failure # L3 and L4 Compression fracture with intractable pain, present on admission and active. # Acute on chronic A-fib, with RVR now resolved, present on admission and stable. # BPH, present on admission and stable. # HFrEF of 20-25%, previously 27% in October 2023 # severe low-gradient , previous cardiology notes in October 2023 suggested palliative care but family declined at that time. PLAN: -comfort care, hospice referral -continue zosyn, stop vanc -continue amiodarone 200mg BID -po morphine and ativan ordered -dysphagia diet DNR is proxy decision maker. Dispo: Downgrade from ICU. Likely 2 days until hospice arranged. Quality VTE Deep Vein Thrombosis/Pulmonary Embolism Present on Admission: No
--- NOTE | 2023-12-02 17:12 | PT.IPTN ---
Current Diagnoses Unspecified atrial fibrillation (11/28/23) Heart failure, unspecified (11/28/23) Pneumonia, unspecified organism (11/28/23) Acute pulmonary edema (11/28/23) Acute respiratory failure with hypoxia (11/28/23) Dorsalgia, unspecified (11/28/23) Wedge compression fracture of third lumbar vertebra, initial encounter for closed fracture (11/28/23) Physical Therapy Treatment Note M2 PT-IP Current Condition Start: 11/28/23 11:54 Freq: NEEDED Status: Active Protocol: Document 11/28/23 10:25 AB (Rec: 11/28/23 12:08 AB [id number]) Physical Therapy Current Condition Current Condition Evaluation Date 11/28/23 Treatment Diagnosis intractable back pain; L3, L4 compression fx; difficulty in walking Onset Date 11/27/23 M3 PT-IP Subjective Start: 11/28/23 11:54 Freq: NEEDED Status: Active Protocol: Document 12/02/23 17:11 AB (Rec: 12/02/23 17:12 AB [id number]) Subjective Physical Therapy Visit Type Type Administrative Note Notes MD d/c PT order. per nurse, pt is on comfort care at this time and plans to go home with hospice care. M7 PT-IP Assessment and Plan Start: 11/28/23 11:54 Freq: NEEDED Status: Active Protocol: Document 12/02/23 17:11 AB (Rec: 12/02/23 17:12 AB [id number]) PT Summary Assessment and Plan Frequency of Treatment Frequency Of Treatment Discharge
[2023-12-02] MEDS: LATANOPROST 0.005% OPHTH 2.5 ML 1 DROPS EYE-BOTH (21:42)
[2023-12-03 00:14] VITALS: PULSE 129; RESP 20; O2SAT 92
[2023-12-03] MEDS: MORPHINE 10 MG/0.5 ML ORAL SYRINGE PO ×7 (00:21→19:05)
[2023-12-03] MEDS: FUROSEMIDE 40 MG/4 ML VIAL 20 MG IV (04:23)
--- NOTE | 2023-12-03 04:28 | PC.NURSE ---
pt has been more tachypneic and with audible crackles, restless; o2 has increased from 3l/nc to 8l/hfnc; pt is on diuretic at home but has not been on his p.o.dose; Dr De La Torre notified and orders rec'd; Lasix 20mg iv given
[2023-12-03 04:47] VITALS: PULSE 104; RESP 26; O2SAT 95
[2023-12-03] MEDS: PIPERACILLIN/TAZO 3.375 GM in SODIUM CHLORIDE 0.9% 100 ML IV ×2 (05:36→13:47)
[2023-12-03 06:20] VITALS: PULSE 109; RESP 26; O2SAT 92
[2023-12-03] MEDS: ALBUTEROL/IPRATROPIUM 3 ML AMPUL INH (06:20)
--- NOTE | 2023-12-03 07:44 | PM.PN.1 ---
Subjective Subjective Interval history: Patient appears worse today. He has very coarse lung sounds and is on 8L NC. Magnet placed to turn off AICD. Hospice info visit set for this morning. Exam Vital Signs (past 8 hours): - 12/03/23 00:14 12/03/23 04:47 12/03/23 06:20 Pulse Rate 129 H 104 H 109 H Respiratory Rate 20 26 H 26 H Pulse Oximetry 92 95 92 Oxygen Delivery Method High Flow Nasal Cannula Humidification High Flow Nasal Cannula Humidification High Flow Nasal Cannula Humidification Oxygen Flow Rate 6 8 8 Fraction of Inspired Oxygen 32 SaO2/FiO2 Ratio 281 Oxygen Delivery Method High Flow Nasal Cannula,Humidification Oxygen Flow Rate 8 Narrative Exam Narrative: Ill-appearing, on 8L NC and awakens to voice. 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 Lungs have diffuse rhonchi. Heart is irregularly irregular, no murmur gallop or rub. Abdomen is soft, non distended. Extremities are free of edema. Objective Labs 12/02/23 04:55 12/02/23 04:55 Labs: Laboratory Results - last 24 hr 12/02/23 12/02/23 04:55 09:45 Procalcitonin 2.23 H Nasal Screen MRSA (PCR) Not detected PFSH Medical History Coronary artery disease Atrial fibrillation Anticoagulated Social History household members: spouse Smoking Status: Unknown if ever smoked Assessment & Plan Assessment & Plan narrative: # septic shock 2/2 acute aspiration pneumonia, now off pressors # acute hypoxic resp failure # L3 and L4 Compression fracture with intractable pain, present on admission and active. # Acute on chronic A-fib, with RVR now resolved, present on admission and stable. # BPH, present on admission and stable. # HFrEF of 20-25%, previously 27% in October 2023 # severe low-gradient , previous cardiology notes in October 2023 suggested palliative care but family declined at that time. # dysphagia with recurrent aspiration, speech recommending NPO but patient now comfort PLAN: -comfort care, hospice referral placed -continue zosyn for now -continue amiodarone 200mg BID if able to take po -po morphine and ativan liquid ordered -dysphagia diet -magnet in place to turn off AICD DNR is proxy decision maker. Dispo: Comfort care. Hopefully home with hospice in 2 days, if patient doesn't pass before then. Quality VTE Deep Vein Thrombosis/Pulmonary Embolism Present on Admission: No
[2023-12-03] MEDS: SODIUM CHLORIDE 0.9% FLUSH 10 ML IV (08:35)
[2023-12-03] MEDS: LORazepam 2 MG/ML ORAL SOL 1 MG SL (10:00)
--- NOTE | 2023-12-03 13:15 | CM.DPC ---
DCP Cont. Reviewed EMR and team rounds for status updates. [facility] will have D[facility] delivered on Thursday, and will admit him on Thursday between 2-3pm. Pt will need BLS setup for Sat. am transport. Will monitor closely.
[2023-12-03 16:00] VITALS: BP 102/66; PULSE 66; RESP 20; TEMP 37.1; O2SAT 88
--- NOTE | 2023-12-04 03:03 | PC.NURSE ---
Event Note Patient picked up by [facility] staff. /Family packed and took home all patient belongings.
--- NOTE | 2023-12-04 16:02 | PM.DDS.1 ---
Discharge Summary History of Illness Narrative: 82 years old male with history of atrial fibrillation, CAD with pacemaker/AICD, diabetes presented to the ER with intractable back pain. The patient was recently in the ED for similar symptoms after he fell. Denies any aqua inguina symptoms. Laboratory was unremarkable. UA shows WBC 5/10 but the patient denies any dysuria. CT scan of the lumbar spine shows multilevel loss of body weight of L4, L3 along with degenerative disc disease. The patient was given fentanyl 75 mcg, Tylenol 1 g IV, lidocaine patch and NS 1 L bolus in the ED. Hospital Course Date of Admission: 11/28/23 10:04 Primary care provider: Lindsay Chavarria MD Consults: 11/27/23 18:04 Consult to SUPERVISOR [employer] CONDITIONING INSTALLER - Chief Of Staff Stat Comment: 11/27/23 23:18 Consult to Discharge Planning Routine Comment: Consult to Occupational Therapy Evaluate & Treat Comment: Physician Instructions: Evaluate and treat 11/28/23 00:18 Consult to Dietitian, Adult Routine Comment: Reason For Exam: low appetite 11/29/23 11:02 Consult to Occupational Therapy Evaluate & Treat Comment: Physician Instructions: Evaluate and treat 12/01/23 10:12 Consult to Tele-market risk manager Routine Comment: Consulting Provider: Mirella [employer]iv[employer] Reason for consultation: [employer] 12/02/23 15:15 Consult to Hospice Referral Urgent Comment: Discharge provider: Saud Hubbard MD Discharge Diagnosis: # Expiration on comfort care. # septic shock 2/2 acute aspiration pneumonia # acute hypoxic respiratory failure # L3 and L4 Compression fracture with intractable pain # Chronic A-fib # BPH # HFrEF of 20-25%, previously 27% in October 2023 # severe low-gradient , previous cardiology notes in October 2023 suggested palliative care but family declined at that time. # dysphagia with recurrent aspiration Hospital Course: This patient was admitted with pain. He has a history of atrial fibrillation, CAD, diabetes, ICD, and chronic systolic heart failure. He presented with intractable back pain relating to to compression fractures. The patient was treated with pain medications including oxycodone with minimal improvement and ultimately a fentanyl patch was added. The patient had poor improvement in his pain control. He did reiterate that he was DNR at the time of admission. When the patient went into atrial fibrillation early in the morning of November 30 and this required IV diltiazem. He became hypotensive and required IV fluids. Then became hypoxemic and was given IV Lasix. He developed acute work of breathing and BiPAP was placed and he was transferred to the ICU. His echo revealed an EF of 20-25%. He also had severe aortic stenosis. The patient required pressors overnight. On the 01 of December a long discussion was held with the family regarding poor prognosis, aspiration risk do is to his chronic dysphagia which was being exacerbated by his acute medical situation. Ultimately they decided to pursue hospice at home and comfort based care. On December 02, the patient was doing worse and required oxygen at 8 L. A magnet was placed to turn off his ICD. The patient ultimately at about 2:00 in the morning in the hospital. Objective Imaging Chest x-ray: Radiologist's impression: PICC was placed by the intravenous therapy team from the left side. Fluoroscopic spot film demonstrates the tip of PICC projecting to the area of SVC. There is a cardiac pacemaker. Bilateral pulmonary infiltrates and pleural effusions are present, compatible with pulmonary edema secondary to congestive heart failure or bilateral pneumonia. Modified Barium Swallow:: Radiologist's impression: IMPRESSION: Episodes of laryngotracheal penetration with both thin barium and nectar, episodes of silent aspiration with ingestion of thin barium. Vallecular pooling with questionable mild, delayed aspiration. Labs 12/02/23 04:55 12/02/23 04:55
--- NOTE | 2024-02-18 08:20 | PC.NURSE ---
Late Entry: Discharge date and time documentation edited to date and time patient , not date and time of departure.
== END 2023-12-04 02:55 | disposition expired | DRG 551 ==
LOC: ED 23:01 → AC 11-28 08:32 → ICU 11-30 23:20
PROVIDERS: Anesthesiology Critical Care Medicine; Hospitalist; Internal Medicine; Student in an Organized Health Care Education/Training Program; Admitting Provider Internal Medicine; Emergency Provider Emergency Medicine; PCP Internal Medicine; Referring Provider Emergency Medicine; Visit Provider Internal Medicine
DX: S32.049A Unspecified fracture of fourth lumbar vertebra, initial encounter for closed fracture (principal); A41.9 Sepsis, unspecified organism; J69.0 Pneumonitis due to inhalation of food and vomit; J96.00 Acute respiratory failure, unspecified whether with hypoxia or hypercapnia; R65.21 Severe sepsis with septic shock; I50.22 Chronic systolic (congestive) heart failure; I48.20 Chronic atrial fibrillation, unspecified; S32.039A Unspecified fracture of third lumbar vertebra, initial encounter for closed fracture; N40.0 Benign prostatic hyperplasia without lower urinary tract symptoms; I25.10 Atherosclerotic heart disease of native coronary artery without angina pectoris; I35.0 Nonrheumatic aortic (valve) stenosis; W19.XXXA Unspecified fall, initial encounter; Z66 Do not resuscitate; Z51.5 Encounter for palliative care; Z91.81 History of falling; Z79.01 Long term (current) use of anticoagulants; Z95.810 Presence of automatic (implantable) cardiac defibrillator
CPT/HCPCS: 36415; 36569; 36592; 36600; 71045; 72100; 72131; 72170; 72220; 74230; 80048; 80053; 81001; 82805; 82962; 83605; 83735; 83880; 84145; 84484; 85025; 85610; 87040; 87086; 87147; 87797; 92526; 92610; 92611; 93005; 93306; 94640; 94660; 96365; 96375; 97110; 97163; 97166; 97530; 97535; 99284; 99285; 99291; G0378; J0136; J1170; J1642; J1650; J1940; J2060; J2543; J2919; J3010